=== PATIENT | female | born 1985 | race Caucasian/White ===

== ENCOUNTER 2023-01-20 09:03 | Outpatient (OUT) | payer BC, SELFPAY ==
[2023-01-20 09:36] LABS: Estimated Average Glucose 85 mg/dL; Glycohemoglobin A1C 4.6 % (4.5-6.2)
[2023-01-20 09:43] LABS: Basophils Percent Auto 0.4 % (0.2-2.0); Eosinophils Absolute Auto 0.2 10^3/uL (0.0-0.7); Eosinophils Percent Auto 2.2 % (0.9-7.0); Hematocrit 42.1 % (36.0-48.0); Hemoglobin 14.2 g/dL (12.0-16.0); Immature Granulocytes Abs Auto 0.01 10^3/uL (0.00-0.03); Immature Granulocytes Pct Auto 0.1 % (0.0-0.5); Lymphocytes Absolute Auto 1.8 10^3/uL (1.2-3.8); Lymphocytes Percent Auto 25.7 % (20.5-60.0); Mean Corpuscular HGB Conc 33.7 g/dL (29.9-35.2); Mean Corpuscular Volume 91.9 fL (81.0-99.0); Mean Platelet Volume 9.7 fL (9.5-13.5); Monocytes Absolute Auto 0.4 10^3/uL (0.3-0.8); Monocytes Percent Auto 5.9 % (1.7-12.0); Neutrophils Absolute Auto 4.6 10^3/uL (1.4-6.5); Neutrophils Percent Auto 65.7 % (43.0-75.0); Platelet Count 211 10^3/uL (150-450); Red Blood Count 4.58 10^6/uL (4.20-5.40); Red Cell Distribution Width 12.4 % (11.0-15.0)
[2023-01-20 10:23] LABS: Alanine Aminotransferase 24 U/L (14-59); Albumin Level 3.9 g/dL (3.4-5.0); Alkaline Phosphatase 77 U/L (46-116); Aspartate Amino Transferase 13 U/L (15-37); BUN Creatinine Ratio 18.8; Bilirubin Total 0.6 mg/dL (0.2-1.0); Calcium 8.8 mg/dL (8.5-10.1); Chloride 101 mmol/L (98-107); Cholesterol 262 mg/dL (<=200); Estimated GFR (African America >60 (>=60); Estimated GFR (Non-African Ame >60 (>=60); Free T3 2.71 pg/mL (2.18-3.98); Globulin 3.9 g/dL; Glucose 81 mg/dL (74-106); HDL Cholesterol 65 mg/dL (40-60); Sodium 138 mmol/L (136-145); Thyroid Stimulating Hormone 2.122 uIU/mL (0.358-3.740); Total Protein 7.8 g/dL (6.4-8.2); Triglycerides 112 mg/dL (<=150); VLDL CHOLESTEROL 22.4 mg/dL
== END 2023-01-20 09:04 | disposition home or self-care (01) ==
LOC: LAB 09:08
PROVIDERS: PCP Family Medicine; Visit Provider Family Medicine
DX: Z00.00 Encounter for general adult medical examination without abnormal findings (principal)
CPT/HCPCS: 36415; 80053; 80061; 82306; 83036; 83540; 84436; 84443; 84481; 85025

== ENCOUNTER 2023-11-07 09:13 | Outpatient (OUT) | payer BC, SELFPAY ==
--- OUTSIDE RECORDS SUMMARY | 2023-11-07 09:30 | XMS_ITS | CCD ---
Author Organization [facility] Care Team Providers Care Manager Transfer Name Role Phone Jeyson Duval Unavailable CHEMA VINCENT S Unavailable Unavailable JEYSON DUVAL Unavailable Unavailable ADILSON WOOD Unavailable Unavailable JEYSON DUVAL Unavailable Unavailable SHAHEEN BEAR SJak Unavailable Unavailable Jeyson Duval Primary Care Provider DR JEYSON DUVAL Attending Unavailable DR JEYSON DUVAL Primary Care Unavailable DR JEYSON DUVAL Admitting Unavailable Jeyson Duval MD Primary Care Provider [phone] Trista ALEJANDRO, Doreen Medrano Attending Cathleen Jeyson Quach MD Primary Care Unavaila nimisha Luke APRN-JAKOB, Areli Mosley Attending Un available Jeyson Duval MD Primary Care Unavaila Hector Michel MD Attending Unavail Jeyson Montague MD Primary Care Unavaila nimisha ENCINAS, Areli Mosley Attending Un available Jeyson Duval MD Primary Care Unavaila Hector Michel MD Attending Unavail able Jeyson Duval MD Primary Care Unavaila Hector Michel MD Attending Unavail Jeyson Montague MD Primary Care Unavaila nimisha Oseguera MD, Becca Maldonado Attending Unavailable Jeyson Duval MD Primary Care Unavaila nimisha Oseguera MD, Becca Maldonado Attending Unavailable Jeyson Duval MD Primary Care Unavaila nimisha Oseguera MD, Becca Maldonado Attending Unavailable Jeyson Duval MD Primary Care Unavaila nimisha Guevara MD, Hector Rojas Attending Unavail Jeyson Montague MD Primary [facility] Unavaila nimisha Oseguera MD, Becca Maldonado Attending Unavailable [facility]in [facility]isha Oseguera MD, Becca Maldonado Attending Unavailable [facility] nimisha Guevara MD, Hector Rojas Attending Unavail able Simin JULES, Jeyson [facility] Unavaila nimisha Oseguera MD, Becca Maldonado Attending Unavailable [facility]in [facility] Unavaila nimisha Guevara MD, Hector Rojas Attending Unavail able [facility]in [facility]UL[facility], [facility] Unavaila ble Blade REGISTERED PHYSICAL THERAPIST-CNM, Sondra Forrest Attending Un available Simin JULES, Jeyson [facility] Unavaila nimisha Weston APRN-OFFICE SYSTEMS TECHNOLOGY INSTRUCTOR, Doreen Medrano Attending Cathleen vailanimisha Duval MD, [facility] Unavaila nimisha Oseguera MD, Becca Maldonado Attending Unavailable Simin JULES, [facility] Unavaila ble Blade REGISTERED PHYSICAL THERAPIST-CNM, Sondra Forrest Attending Un available Simin JUL[facility], [facility] Unavaila nimisha Oseguera MD, Becca Maldonado Attending Unavailable Simin JULES, [facility] Unavaila nimisha Oseguera MD, Becca Maldonado Attending Unavailable Simin JULES, [facility] Unavaila nimisha Oseguera MD, Becca Maldonado Attending Unavailable Jeyson Duval MD [facility] Unavaila nimisha Oseguera MD, Becca Maldonado Attending Unavailable Simin JULES, [facility] Unavaila nimisha Guevara MD, Hector Rojas Attending Unavail able Simin JULES, [facility] Unavaila nimisha Guevara MD, Hector Rojas Attending Unavail able Simin JULES, [facility] Unavaila nimisha Oseguera MD, Becca Maldonado Attending Unavailable Jeyson Duval MD [facility] Unavaila ble Marly GUSMAN-CNCamila, Areli Mosley Attending Un available Jeyson Duval MD [facility] Unavaila nimisha Guevara MD, Hector Rojas Attending Unavail able Simin JULES, [facility] Unavaila nimisha Oseguera MD, Becca Maldonado Attending Unavailable Hoy MD, [facility] Unavaila nimisha Oseguera MD, Becca Maldonado Attending Unavailable Simin JULES, [facility] Unavaila nimisha Duval MD, [facility] Unavaila nimisha Guevara MD, Hector Rojas Attending Unavail able Simin JULES, [facility] Unavaila nimisha Duval MD, [facility] Unavaila nimisha Duval MD, [facility] Unavaila nimisha Oseguera MD, Becca Maldonado Attending Unavailable Simin JULES, [facility] Unavaila nimisha Guevara MD, Hector Rojas Attending Unavail able Simin JULES, [facility] Unavaila nimisha Guevara MD, Hector Rojas Attending Unavail able Simin JULES, [facility] Unavaila nimisha Oseguera MD, Becca Maldonado Attending Unavailable Simin JULES, [facility] Unavaila nimisha ENCINAS, Areli Mosley Attending Un available Simin JULES, [facility] Unavaila nimisha Guevara MD, Hector Rojas Attending Unavail able Simin JULSE, [facility] Unavaila nimisha Oseguera MD, Becca Maldonado Attending Unavailable Simin JULES, [facility] Unavaila nimisha Guevara MD, Hector Rojas Attending Unavail able Simin JULES, [facility] Unavaila nimisha Oseguera MD, Becca Maldonado Attending Unavailable Simin JULES, [facility] Unavaila nimisha Oseguera MD, Becca Maldonado Attending Unavailable Simin JULES, [facility] Unavaila nimisha Oseguera MD, Becca Maldonado Attending Unavailable Simin JULES, [facility] Unavaila nimisha Oseguera MD, Becca Maldonado Attending Unavailable Simin JULES, [facility] Unavaila ble Soto HARRELL, [employer] Unavailable Paola JULES, Hector Rojas Admitting Unavail able Paola JULES, Hector Rojas Attending Unavail able Simin JULES, [facility] Unavaila nimisha Duval MD, [facility] Consult[facility] Unavaila nimisha Guevara MD, Hector Rojas Admitting Unavail renato Guevara MD, Hector Rojas Attending Unavail able Simin JULES, [facility] Unavaila nimisha Guevara MD, Hector Rojas Attending Jeyson Sanchez MD Primary Care Unavailjuan Guevara MD, Hector Rojas Attending Jeyson Sanchez MD Primary Care Unavailjuan Guevara MD, Hector Rojas Attending Jeyson Sanchez MD Primary Care UnavailJeyson Rider MD Primary Care Provider [phone] HOY, JEYSON M Referring Unavailable HOY, JEYSON M Primary Care Unavailable HOY, JEYSON M Referring Unavailable HOY, JEYSON M Primary Care Unavailable HOY, JEYSON M Referring Unavailable HOY, JEYSON M Primary Care Unavailable HOY, JEYSON M Referring Unavailable HOY, JEYSON M Primary Care Unavailable Allergies Allergy Classification Reported Allergen(s) Allergy Type Date of Onset Reaction(s) Facility Cephalosporins (antibiotic) (3 sources) Cephalosporins (Antibiotic) Drug Allergy 04-10-19 [facility] Penicillins (antibiotic) (3 sources) Penicillins Drug Allergy 07-07-19 [facility] (4 sources) Cephalosporins (Antibiotic); Translations: [CEPHALOSPORINS] Propensity to adverse reactions to drug 04-10-19 [facility] Work Phone: (3 sources) Penicillins; Translations: [PENICILLINS] Propensity to adverse reactions to drug 03-21-19 [facility] Work Phone: (6 sources) OTHER; Translations: [OTHER] Propensity to adverse reactions 08-05-19 Hives, Itching [facility] Work Phone: (4 sources) Cephalosporins (Antibiotic) Propensity to adverse reactions to drug 04-10-19 [place], [place] (4 sources) Penicillins Propensity to adverse reactions to drug 07-07-19 [place], [place] (1 source) surgical glue; Translations: [surgical glue] Propensity to adverse reactions to drug (disorder) [facility] Repository (1 source) Penicillins Propensity to adverse reactions to drug 07-07-19 [facility] NEGATED: Highlighted row has been ruled out!Unclassified (4 sources) Other Propensity to adverse reactions 08-05-19 17 Hives, Itching [facility] Medications Current Medications Medication Drug Class(es) Dates Sig (Normalized) Sig (Original) clindamycin 150 mg oral capsule (8 sources) Lincosamide Antibacterial clindamycin (CLEOCIN) 150 MG capsule Take 300 mg by mouth daily as needed Take 300mg one hour before procedure and 300mg six hours after procedure. 0 Active esomeprazole 40 mg granules for oral suspension (8 sources) Proton Pump Inhibitor take 40 mg by mouth once daily esomeprazole Magnesium (NEXIUM) 40 MG PACK Take 40 mg by mouth daily 0 Active Ethinyl Estradiol / Ferrous fumarate / Norethindrone (8 sources) Estrogen take 1 tablet by mouth once daily, then take 0.05-1 tablets by mouth once norethindrone-eth inyl estradiol (JUNEL FE 04/02) 1-20 MG-MCG per tablet Take 1 tablet by mouth daily 0 Active Norethindrone Acetate 1 Mg-Ethinyl Estradiol 20 McG Tablet (1 source) Progestin, Estrogen take 1 tablet by mouth once daily, then take 0.05-21 tablets by mouth once norethindrone-eth inyl estradiol (MICROGESTIN 04/02, ,) 1-20 mg-mcg per tablet Take 1 tablet by mouth daily. Active fluticasone propionate 0.05 mg/actuat metered dose nasal spray (1 source) Corticosteroid take 1 spray(s) nasal route once daily fluticasone (FLONASE) 50 mcg/actuation nasal spray Instill 1 spray into each nostril daily. Active Multiple Vitamins-Minerals (HAIR SKIN AND NAILS FORMULA PO) (8 sources) Multiple Vitamins-Minerals (HAIR SKIN AND NAILS FORMULA PO) Take by mouth 0 Active Multiple Vitamins-Minerals (MULTIVITAMIN & MINERAL PO) (8 sources) Start: 11-04-2006 Multiple Vitamins-Minerals (MULTIVITAMIN & MINERAL PO) Take by mouth 0 11/04/2006 Active naproxen sodium 220 mg oral capsule (9 sources) Nonsteroidal Anti-inflammatory Drug Naproxen Sodium (ALEVE) 220 MG CAPS Take by mouth as needed for Pain 0 Active take [facility] capsule [facility] twelve hours naproxen sodium (ALEVE) 220 mg cap Take 1 tablet by mouth every 12 (twelve) hours as needed. Active omeprazole 40 mg delayed release oral capsule (1 source) Proton Pump Inhibitor take 1 capsule by mouth once daily omeprazole (PRILOSEC) 40 MG capsule Take 40 mg by mouth daily. Active ondansetron 4 mg oral tablet (9 sources) Serotonin-3 Receptor Antagonist take 1 tablet by mouth every eight hours as needed for nausea ondansetron (ZOFRAN) 4 MG tablet Take 4 mg by mouth every 8 hours as needed for Nausea or Vomiting 0 Active Probiotic Product (PROBIOTIC PO) (8 sources) take 1 tablet by mouth once daily as needed Probiotic Product (PROBIOTIC PO) Take 1 tablet by mouth daily as needed 0 Active raNITIdine 150 mg oral tablet (8 sources) Histamine-2 Receptor Antagonist take 1 tablet by mouth once daily ranitidine (ZANTAC) 150 MG tablet Take 150 mg by mouth nightly 0 Active therapeutic multivitamin (THERAGRAN) tablet (1 source) take 1 tablet by mouth once daily therapeutic multivitamin (THERAGRAN) tablet Take 1 tablet by mouth daily. Active Problems Active Problems Problem Classification Problem Date Documented Da te Episodic/Chronic Headache; including migraine (1 source) Refractory migraine; Translations: [Intractable migraine without status migrainosus, unspecified migraine type] Chronic Mycoses (1 source) Histoplasmosis; Translations: [Histoplasmosis] Episodic Other connective tissue disease (1 source) Pain in left foot; Translations: [Pain in left foot] Episodic Other screening for suspected conditions (not mental disorders or infectious disease) (4 sources) Patient encounter status; Translations: [Encounter for screening mammogram for malignant neoplasm of breast] Onset: 03-01-2023 Episodic Other upper respiratory disease (3 sources) Chronic rhinitis; Translations: [Chronic rhinitis] Onset: 03-21-2017 03-21-2017 Chronic Past or Other Problems Problem Classification Problem Date Documented Da te Episodic/Chronic Other gastrointestinal disorders (1 source) Dysphagia, oropharyngeal phase; Translations: [Dysphagia, oropharyngeal phase] Onset: 05-25-2017 Episodic Other upper respiratory infections (2 sources) Postnasal drip; Translations: [Postnasal drip] Onset: 03-21-2017 Episodic Unclassified (3 sources) Other general symptoms and signs; Translations: [Throat fullness] Onset: 03-21-2017 03-21-2017 Episodic Results Test Name Value Interpretation Reference Range Facility MRI BREAST BILATERAL W WO CO NTRASTon 07-05-2023 MRI BREAST BILATERAL W WO CONTRAST EXAMINATION: MRI OF THE BILATERAL BREASTS WITHOUT AND WITH CONTRAST 07/05/2023 9:40 am: TECHNIQUE: Multiplanar multisequence MRI of the bilateral breasts were performed without and with the administration of intravenous contrast. Data analysis was performed with color parametric mapping, image subtraction, and 3D reconstructions. COMPARISON: No prior MRI study for comparison. Prior mammograms and ultrasounds most recent dated 05/06/2023. HISTORY: ORDERING SYSTEM PROVIDED HISTORY: Abnormal mammogram TECHNOLOGIST PROVIDED HISTORY: STAT Creatinine as needed:->No FINDINGS: Breast parenchyma: Heterogeneously dense. Minimal background parenchymal enhancement symmetrical. Right breast: No suspicious MRI correlate for the mammogram detected asymmetry in the right breast 10-11 o'clock axis consistent with benign superimpose fibroglandular breast tissue. No evidence of abnormal enhancing mass or non mass enhancement. The nipple/areolar complex and chest wall unremarkable. No evidence of lymphadenopathy. Left breast: No evidence of abnormal enhancing mass or non mass enhancement. The nipple/areolar complex and chest wall unremarkable. No evidence of lymphadenopathy. Extramammary tissue: Unremarkable. IMPRESSION: No MRI evidence of malignancy. BI-RADS 2 BIRADS: BIRADS - CATEGORY 2 Benign Findings. Back to annual screening mammogram due February 2024. OVERALL ASSESSMENT - BENIGN Interpreted by: Tara Brooks MD Signed by: Tara Brooks MD 07/05/23 Final result Normal [facility] DIGITAL DIAGNOSTIC UNILATERAL RIGHTon 05-06-2023 [facility] DIGITAL DIAGNOSTIC UNILATERAL RIGHT EXAMINATION: DIAGNOSTIC DIGITAL RIGHT BREAST MAMMOGRAM WITH TOMOSYNTHESIS; TARGETED ULTRASOUND OF THE RIGHT BREAST, 05/06/2023 1:42 pm TECHNIQUE: Diagnostic mammography of the right breast was performed with tomosynthesis. 2D standard and 3D tomosynthesis combination imaging performed through the right breast. Computer aided detection was utilized in the interpretation of this exam.; Targeted ultrasound of the right breast was performed. Views: COMPARISON: March 01, 2023 HISTORY: ORDERING SYSTEM PROVIDED HISTORY: Other abnormal and inconclusive findings on diagnostic imaging of breast TECHNOLOGIST PROVIDED HISTORY: CAD FINDINGS: Mammogram: The right breast is heterogeneously dense which can obscure small masses. Area of concern in the outer right breast persist with spot compression although does appear to be most likely summation on tomosynthesis images. Ultrasound: Ultrasound was performed 10-11 o'clock position 5 cm the nipple and demonstrates no solid or cystic mass. IMPRESSION: Asymmetry persists with spot compression likely summation with no ultrasound correlate. Recommend six-month mammogram follow-up. BIRADS: BIRADS - CATEGORY 3 Probably Benign Findings. A short interval follow-up is recommended in 6 months. OVERALL ASSESSMENT - PROBABLY BENIGN. A letter of notification will be sent to the patient regarding the results. Interpreted by: Johnie Lozano DO Signed by: Johnie Lozano DO 05/06/23 Final result Normal [facility] US BREAST LIMITED RIGHTon US BREAST LIMITED RIGHT EXAMINATION: DIAGNOSTIC DIGITAL RIGHT BREAST MAMMOGRAM WITH TOMOSYNTHESIS; TARGETED ULTRASOUND OF THE RIGHT BREAST, 05/06/2023 1:42 pm TECHNIQUE: Diagnostic mammography of the right breast was performed with tomosynthesis. 2D standard and 3D tomosynthesis combination imaging performed through the right breast. Computer aided detection was utilized in the interpretation of this exam.; Targeted ultrasound of the right breast was performed. Views: COMPARISON: March 01, 2023 HISTORY: ORDERING SYSTEM PROVIDED HISTORY: Other abnormal and inconclusive findings on diagnostic imaging of breast TECHNOLOGIST PROVIDED HISTORY: CAD FINDINGS: Mammogram: The right breast is heterogeneously dense which can obscure small masses. Area of concern in the outer right breast persist with spot compression although does appear to be most likely summation on tomosynthesis images. Ultrasound: Ultrasound was performed 10-11 o'clock position 5 cm the nipple and demonstrates no solid or cystic mass. IMPRESSION: Asymmetry persists with spot compression likely summation with no ultrasound correlate. Recommend six-month mammogram follow-up. BIRADS: BIRADS - CATEGORY 3 Probably Benign Findings. A short interval follow-up is recommended in 6 months. OVERALL ASSESSMENT - PROBABLY BENIGN. A letter of notification will be sent to the patient regarding the results. Interpreted by: Johnie Lozano DO Signed by: Johnie Lozano DO 05/06/23 Final result Normal [facility] US Breast - right limitedOrd ered By: Johnie Lozano on 05-06-2023 Interpretation and review of laboratory results Abnormal [employer] Phone: [employer] Phone: US Breast - right limitedon 05-06-2023 Asymmetry persists with spot compression likely summation with no ultrasound correlate. Recommend six-month mammogram follow-up. BIRADS: BIRADS - CATEGORY 3 Probably Benign Findings. A short interval follow-up is recommended in 6 months. OVERALL ASSESSMENT - PROBABLY BENIGN. A letter of notification will be sent to the patient regarding the results. [facility] EXAMINATION: DIAGNOSTIC DIGITAL RIGHT BREAST MAMMOGRAM WITH TOMOSYNTHESIS; TARGETED ULTRASOUND OF THE RIGHT BREAST, 05/06/2023 1:42 pm TECHNIQUE: Diagnostic mammography of the right breast was performed with tomosynthesis. 2D standard and 3D tomosynthesis combination imaging performed through the right breast. Computer aided detection was utilized in the interpretation of this exam.; Targeted ultrasound of the right breast was performed. Views: COMPARISON: March 01, 2023 HISTORY: ORDERING SYSTEM PROVIDED HISTORY: Other abnormal and inconclusive findings on diagnostic imaging of breast TECHNOLOGIST PROVIDED HISTORY: CAD FINDINGS: Mammogram: The right breast is heterogeneously dense which can obscure small masses. Area of concern in the outer right breast persist with spot compression although does appear to be most likely summation on tomosynthesis images. Ultrasound: Ultrasound was performed 10-11 o'clock position 5 cm the nipple and demonstrates no solid or cystic mass. [facility] Radiology Study observation (narrative) [facility]NSON DIGITAL SCREEN LONNIE Valdez 03-01-2023 [facility] J[facility]NSON DIGITAL SCREEN BILATERAL EXAMINATION: SCREENING DIGITAL BILATERAL MAMMOGRAM WITH TOMOSYNTHESIS, 03/01/2023 TECHNIQUE: Screening mammography was performed with tomosynthesis including MLO and CC views of the bilateral breasts. Computer aided detection was used for the interpretation of this exam. COMPARISON: 27 October 2020 HISTORY: Screening. Positive family history of breast cancer; maternal grandmother in her 40s. 12 year history of oral contraception. No hormonal replacement therapy or breast interventions. TC score 18.1 FINDINGS: Both breasts are composed of heterogeneously dense parenchyma. An asymmetry is present in the lateral aspect of the right breast middle depth on CC view with additional mammographic workup advised. Full workup may require ultrasonography. No skin thickening, nipple contour changes or suspicious calcifications are noted. IMPRESSION: Asymmetry lateral aspect of the right breast middle depth seen on CC view only with additional mammographic workup advised. Full workup may require ultrasonography. BREAST DENSITY SUMMARY C: The breasts are heterogeneously dense which may obscure small masses. BI-RADS 0 BIRADS: BIRADS - CATEGORY 0 Incomplete: Needs Additional Imaging Evaluation OVERALL ASSESSMENT - INCOMPLETE:NEED ADDITIONAL IMAGING EVALUATION. Interpreted by: Danielle Collins MD Signed by: Danielle Collins MD 03/01/23 Final result Normal [facility] Gynecology Office/Clinic Not jordyn 02-21-2023 Gynecology Office/Clinic Note Normal [facility] Free T4on 09-09-2022 Free T4 [Mass/Vol] 0.76 ng/dL Normal 0.61-1.12 [facility] Comment on above: Result Comment: Refe rence Ranges for Females: Females, 1st Trimester 0.52 ? 1.10 ng/dL Females, 2nd Trimester 0.45 ? 0.99 ng/dL Females, 3rd Trimester 0.48 - 0.95 ng/dL Performed By: #### F REET4 ####[place] [id number] TSHon 09-09-2022 TSH Qn 0.96 m[IU]/L Normal 0.45-5.33 [facility] Comment on above: Result Comment: Refe rence Ranges for individuals from to 18 years of age were obtained from The Mary Ann Emerson Handbook (20 ed) published by [facility].Reference Ranges for Females: Females, 1st Trimester 0.05 ? 3.7 uIU/mL Females, 2nd Trimester 0.31 ? 4.35 uIU/mL Females, 3rd Trimester 0.41 ? 5.18 uIU/mL Performed By: #### T SH ####[address] [address] C Urineon 07-31-2022 C Urine Normal [facility] Comment on above: Performed By: #### U RC ####[facility] (DEFAULT)[address] [place], [place] [id number] [address] .UA Microscp Aon 07-29-2022 UA Bacteria Present Abnormal Absent [facility] Comment on above: Performed By: #### . Urinalysis Microscopic Auto ####[address] [address] UA Mucus Present Abnormal Absent [facility] Comment on above: Performed By: #### . Urinalysis Microscopic Auto ####[address] [address] UA RBC Quant 0 /HPF Normal 0-5 [facility] Comment on above: Performed By: #### . Urinalysis Microscopic Auto ####[address] [address] UA Squepi Cells Quant 3 /HPF Normal 0-29 [facility] Comment on above: Performed By: #### . Urinalysis Microscopic Auto ####[address] [address] UA WBC Quant 6 /HPF High 0-5 [facility] Comment on above: Performed By: #### . Urinalysis Microscopic Auto ####[place] [address] Gynecology Office/Clinic Not jordyn 07-29-2022 Gynecology Office/Clinic Note Normal [facility] UA w Culture if Indon 2022 Color (U) Light-Yellow Normal [facility] Comment on above: Performed By: #### U CI ####[address] [address] Ketones Ql (U) Negative Normal Negative [facility] Comment on above: Performed By: #### U CI ####[address] [address] UA Blood 1+ Abnormal Negative [facility] Comment on above: Performed By: #### U CI ####[address] [address] UA Clarity Clear Normal [facility] Comment on above: Performed By: #### U CI ####[address] [address] UA Glucose Normal Normal Negative [facility] Comment on above: Performed By: #### U CI ####[address] [address] UA Leukocyte Esterase 75 Abnormal Negative [facility] Comment on above: Performed By: #### U CI ####[address] [address] UA Nitrite Negative Normal Negative [facility] Comment on above: Performed By: #### U CI ####[address] [address] UA pH 6.5 Normal 4.5 - 7.8 [facility] Comment on above: Performed By: #### U CI ####[address] [address] UA Protein Negative Normal Negative [facility] Comment on above: Performed By: #### U CI ####[address] [address] UA Source Clean Catch Normal [facility] Comment on above: Performed By: #### U CI ####[address] [address] UA Spec Grav 1.011 Normal 1.003-1.035 [facility] Comment on above: Performed By: #### U CI ####[address] [address] UA Urobilinogen Normal Normal 0.2 - 1.0 [facility] Comment on above: Performed By: #### U CI ####[address] [address] Urobilinogen (U) [Mass/Vol] Negative Normal Negative [facility] Comment on above: Performed By: #### U CI ####[address] [address] Inpatient Clinical Summaryon 07-21-2022 Inpatient Clinical Summary Normal [facility] CBC w/ Diffon 07-20-2022 Erythrocyte distribution width (RBC) [Ratio] 13.8 % Normal 11.6-14.8 [facility] Comment on above: Performed By: #### C BC ####[address] [address] Hematocrit (Bld) [Volume fraction] 26.3 % Low 36.0-46.0 [facility] Comment on above: Performed By: #### C BC ####[address] [address] Hemoglobin (Bld) [Mass/Vol] 9.0 g/dL Low 12.0-16.0 [facility] Comment on above: Performed By: #### C BC ####[address] [address] MCH (RBC) [Entitic mass] 31.3 pg Normal 27.0-35.0 [facility] Comment on above: Performed By: #### C BC ####[address] [address] MCHC 34.2 % Normal 31.0-37.0 [facility] Comment on above: Performed By: #### C BC ####[address] [address] MCV (RBC) [Entitic vol] 91.6 fL Normal 80.0-100.0 [facility] Comment on above: Performed By: #### C BC ####[address] [address] Platelet 165 x10*3/mcL Normal 150-350 [facility] Comment on above: Performed By: #### C BC ####[address] [address] Platelet mean volume (Bld) [Entitic vol] 7.6 fL Normal 6.7-10.6 [facility] Comment on above: Performed By: #### C BC ####[address] [address] RBC 2.88 x10*6/mcL Low 3.80-5.20 [facility] Comment on above: Performed By: #### C BC ####[address] [address] WBC 10.1 x10*3/mcL Normal 4.5-11.0 [facility] Comment on above: Performed By: #### C BC ####[address] [address] Diff Autoon 07-20-2022 Baso Absolute 0.1 x10*3/mcL Normal 0.0-0.2 [facility] Comment on above: Performed By: #### . Automated Diff ####[address] [address] Basophils/100 WBC (Bld) 0.6 % Normal 0.0-1.5 [facility] Comment on above: Performed By: #### . Automated Diff ####[address] [address] Eos Absolute 0.1 x10*3/mcL Normal 0.0-0.4 [facility] Comment on above: Performed By: #### . Automated Diff ####[address] [address] Eosinophils/100 WBC (Bld) 1.4 % Normal 0.0-5.4 [facility] Comment on above: Performed By: #### . Automated Diff ####[address] [address] Lymph Absolute 1.5 x10*3/mcL Normal 1.0-4.8 [facility] Comment on above: Performed By: #### . Automated Diff ####[address] [address] Lymphocytes/100 WBC (Bld) 14.6 % Low 27.2-40.8 [facility] Comment on above: Performed By: #### . Automated Diff ####[address] [address] Ramsey Absolute 0.7 x10*3/mcL Normal 0.1-1.1 [facility] Comment on above: Performed By: #### . Automated Diff ####[address] [address] Monocytes/100 WBC (Bld) 7.2 % Normal 3.7-11.9 [facility] Comment on above: Performed By: #### . Automated Diff ####[address] [place] [address] Neutro Absolute 7.7 x10*3/mcL Normal 1.8-7.7 [facility] Comment on above: Performed By: #### . Automated Diff ####[place] [address] Neutro Auto 76.2 % High 47.2-70.8 [facility] Comment on above: Performed By: #### . Automated Diff ####[place] [id number] Obstetrics Progress Noteon 0 07-20-2022 Obstetrics Progress Note Normal [facility] CBC w/ Diffon 07-19-2022 Erythrocyte distribution width (RBC) [Ratio] 13.9 % Normal 11.6-14.8 [facility] Comment on above: Performed By: #### C BC ####[place] [address] Hematocrit (Bld) [Volume fraction] 27.9 % Low 36.0-46.0 [facility] Comment on above: Performed By: #### C BC ####[place] [address] Hemoglobin (Bld) [Mass/Vol] 9.5 g/dL Low 12.0-16.0 [facility] Comment on above: Performed By: #### C BC ####[place] [id number] MCH (RBC) [Entitic mass] 31.0 pg Normal 27.0-35.0 [facility] Comment on above: Performed By: #### C BC ####[place] [id number] MCHC 34.2 % Normal 31.0-37.0 [facility] Comment on above: Performed By: #### C BC ####[place] [id number] MCV (RBC) [Entitic vol] 90.8 fL Normal 80.0-100.0 [facility] Comment on above: Performed By: #### C BC ####[address] [address] Platelet 176 x10*3/mcL Normal 150-350 [facility] Comment on above: Performed By: #### C BC ####[address] [address] Platelet mean volume (Bld) [Entitic vol] 7.5 fL Normal 6.7-10.6 [facility] Comment on above: Performed By: #### C BC ####[address] [address] RBC 3.08 x10*6/mcL Low 3.80-5.20 [facility] Comment on above: Performed By: #### C BC ####[address] [address] WBC 11.7 x10*3/mcL High 4.5-11.0 [facility] Comment on above: Performed By: #### C BC ####[address] [address] Diff Autoon 07-19-2022 Baso Absolute 0.1 x10*3/mcL Normal 0.0-0.2 [facility] Comment on above: Performed By: #### . Automated Diff ####[address] [address] Basophils/100 WBC (Bld) 0.7 % Normal 0.0-1.5 [facility] Comment on above: Performed By: #### . Automated Diff ####[address] [address] Eos Absolute 0.1 x10*3/mcL Normal 0.0-0.4 [facility] Comment on above: Performed By: #### . Automated Diff ####[address] [address] Eosinophils/100 WBC (Bld) 0.7 % Normal 0.0-5.4 [facility] Comment on above: Performed By: #### . Automated Diff ####[address] [address] Lymph Absolute 1.2 x10*3/mcL Normal 1.0-4.8 [facility] Comment on above: Performed By: #### . Automated Diff ####[address] [address] Lymphocytes/100 WBC (Bld) 10.2 % Low 27.2-40.8 [facility] Comment on above: Performed By: #### . Automated Diff ####[address] [address] Ramsey Absolute 0.7 x10*3/mcL Normal 0.1-1.1 [facility] Comment on above: Performed By: #### . Automated Diff ####[address] [address] Monocytes/100 WBC (Bld) 6.1 % Normal 3.7-11.9 [facility] Comment on above: Performed By: #### . Automated Diff ####[address] [address] Neutro Absolute 9.6 x10*3/mcL High 1.8-7.7 [facility] Comment on above: Performed By: #### . Automated Diff ####[address] [address] Neutro Auto 82.3 % High 47.2-70.8 [facility] Comment on above: Performed By: #### . Automated Diff ####[address] [address] Obstetrics Progress Noteon 0 07-19-2022 Obstetrics Progress Note Normal [facility] .Fentanyl Scrn with Conf,Uro n 07-18-2022 Ur Fentanyl Scrn w/Confirm Negative Normal NEG <1.0 [facility] Comment on above: Performed By: #### C [id number] ####[address] [address] Ur Fentanyl Scrn w/Confirm Qnt 0.00 ng/mL Normal <=0.99 [facility] Comment on above: Performed By: #### C [id number] ####[address] [address] ABO/Rhon 07-18-2022 ABO/Rh ABO/Rh: A POS Normal [facility] Comment on above: Performed By: #### A KILEY ####[address] [address] ABSC Autoon 07-18-2022 ABSC Auto Negative Normal [facility] Comment on above: Performed By: #### A SA ####[address] [address] CBC w/ Diffon 07-18-2022 Erythrocyte distribution width (RBC) [Ratio] 13.8 % Normal 11.6-14.8 [facility] Comment on above: Performed By: #### C BC ####[address] [address] Hematocrit (Bld) [Volume fraction] 36.8 % Normal 36.0-46.0 [facility] Comment on above: Performed By: #### C BC ####[address] [address] Hemoglobin (Bld) [Mass/Vol] 12.5 g/dL Normal 12.0-16.0 [facility] Comment on above: Performed By: #### C BC ####[address] [address] MCH (RBC) [Entitic mass] 30.8 pg Normal 27.0-35.0 [facility] Comment on above: Performed By: #### C BC ####[address] [address] MCHC 33.9 % Normal 31.0-37.0 [facility] Comment on above: Performed By: #### C BC ####[address] [address] MCV (RBC) [Entitic vol] 91.1 fL Normal 80.0-100.0 [facility] Comment on above: Performed By: #### C BC ####[address] [address] Platelet 209 x10*3/mcL Normal 150-350 [facility] Comment on above: Performed By: #### C BC ####[address] [address] Platelet mean volume (Bld) [Entitic vol] 8.2 fL Normal 6.7-10.6 [facility] Comment on above: Performed By: #### C BC ####[address] [address] RBC 4.04 x10*6/mcL Normal 3.80-5.20 [facility] Comment on above: Performed By: #### C BC ####[address] [address] WBC 8.8 x10*3/mcL Normal 4.5-11.0 [facility] Comment on above: Performed By: #### C BC ####[address] [address] Diff Autoon 07-18-2022 Baso Absolute 0.0 x10*3/mcL Normal 0.0-0.2 [facility] Comment on above: Performed By: #### . Automated Diff ####[address] [address] Basophils/100 WBC (Bld) 0.4 % Normal 0.0-1.5 [facility] Comment on above: Performed By: #### . Automated Diff ####[address] [address] Eos Absolute 0.0 x10*3/mcL Normal 0.0-0.4 [facility] Comment on above: Performed By: #### . Automated Diff ####[address] [address] Eosinophils/100 WBC (Bld) 0.5 % Normal 0.0-5.4 [facility] Comment on above: Performed By: #### . Automated Diff ####[address] [address] Lymph Absolute 1.4 x10*3/mcL Normal 1.0-4.8 [facility] Comment on above: Performed By: #### . Automated Diff ####[address] [address] Lymphocytes/100 WBC (Bld) 16.2 % Low 27.2-40.8 [facility] Comment on above: Performed By: #### . Automated Diff ####[address] [address] Ramsey Absolute 0.6 x10*3/mcL Normal 0.1-1.1 [facility] Comment on above: Performed By: #### . Automated Diff ####[address] [address] Monocytes/100 WBC (Bld) 6.3 % Normal 3.7-11.9 [facility] Comment on above: Performed By: #### . Automated Diff ####[address] [address] Neutro Absolute 6.7 x10*3/mcL Normal 1.8-7.7 [facility] Comment on above: Performed By: #### . Automated Diff ####[address] [address] Neutro Auto 76.6 % High 47.2-70.8 [facility] Comment on above: Performed By: #### . Automated Diff ####[address] [address] Operative Reporton Operative Report Normal [facility] UDS OB/Con 07-18-2022 Creatinine [Mass/Vol] 66.9 mg/dL Normal [facility] Comment on above: Performed By: #### C [id number] ####[address] [address] Ur Amph Scrn w/Conf Negative Normal NEG = <1000 [facility] Comment on above: Performed By: #### C [id number] ####[address] [address] Ur Suha Scrn w/Conf Negative Normal NEG = <200 [facility] Comment on above: Performed By: #### C [id number] ####[address] [address] Ur Benzodia Scrn w/Conf Negative Normal NEG = <200 [facility] Comment on above: Performed By: #### C [id number] ####[address] [address] Ur Cannab Scrn w/Conf Negative Normal NEG = <50 [facility] Comment on above: Performed By: #### C [id number] ####[address] [address] Ur Cocaine Scrn w/Conf Negative Normal NEG = <300 [facility] Comment on above: Performed By: #### C [id number] ####[address] [address] Ur Methadone Scrn w/Conf Negative Normal NEG = <300 [facility] Comment on above: Performed By: #### C [id number] ####[address] [address] Ur Opiate Scrn w/Conf Negative Normal NEG = <300 [facility] Comment on above: Performed By: #### C [id number] ####[address] [address] Ur Oxy Screen w/Conf Negative Normal NEG = <100 [facility] Comment on above: Performed By: #### C [id number] ####[address] [address] Ur Oxy Scrn Qnt w/Confirm 0 ng/mL Normal <=99 [facility] Comment on above: Performed By: #### C [id number] ####[address] [address] Ur PCP Scrn w/Conf Negative Normal NEG = <25 [facility] Comment on above: Performed By: #### C [id number] ####[address] [address] UA pH 7.0 Normal 4.5 - 7.8 [facility] Comment on above: Performed By: #### C [id number] ####[address] [address] UA Spec Grav 1.015 Normal 1.003-1.035 [facility] Comment on above: Performed By: #### C [id number] ####[place] [address] Circulation Supervisor TIERNEY QC OK Yes Normal [facility] Comment on above: Performed By: #### C [id number] ####[address] [address] Ur Buprenorphine Scrn w/Conf Negative Normal NEG = <10 [facility] Comment on above: Performed By: #### C [id number] ####[address] [address] Progress Note-Nurseon 2022 Progress Note-Nurse Normal [facility] US Biophysical Profile w/ NSTon 07-16-2022 US Biophysical Profile w/ NST Normal [facility] Obstetrics Office/Clinic Not jordyn 07-13-2022 Obstetrics Office/Clinic Note Normal [facility] Progress Note-Nurseon 2022 Progress Note-Nurse Normal [facility] US Biophysical Profile w/ NSTon 07-09-2022 US Biophysical Profile w/ NST Normal [facility] Ambulatory Patient Education on 07-08-2022 Ambulatory Patient Education Normal [facility] Obstetrics Office/Clinic Not jordyn 07-08-2022 Obstetrics Office/Clinic Note Normal [facility] Progress Note-Nurseon 2022 Progress Note-Nurse Normal [facility] US Biophysical Profile w/ NSTon 07-05-2022 US Biophysical Profile w/ NST Normal [facility] Progress Note-Nurseon 2022 Progress Note-Nurse Normal [facility] Ambulatory Patient Education on 06-29-2022 Ambulatory Patient Education Normal [facility] Obstetrics Office/Clinic Not jordyn 06-29-2022 Obstetrics Office/Clinic Note Normal [facility] Progress Note-Nurseon 2022 Progress Note-Nurse Normal [facility] Grp B PCRon 06-25-2022 Allergic to Penicillin? Yes Normal [facility] Comment on above: Performed By: #### C [id number] ####[place] [address] [place] [address] Group B Strep PCR Negative Normal Negative [facility] Comment on above: Result Comment: No G roup B Strep nucleic acid detected.The [employer] GBS Assay is an automated nucleic acid extraction and purification Real-Time PCR detection of Streptococcus agalactiae, Group B Strep nucleic acid sequences. A positive result indicates the presence of GBS nucleic acid from TORRES broth enrichment of vaginal-rectal swab specimens obtained from women. A positive result does not necessarily indicate the presence of viable organisms. Per CDC Recommendation Guidelines, women with positive intrapartum NAAT results for GBS should receive antibiotic prophylaxis with penicillin G, ampicillin, or cefazolin. Reflex susceptibility should be performed prior to use of clindamycin only on GBS isolates from penicillin-allergic women who are considered a high risk for anaphylaxis. Treatment with vancomycin without addtional testing is warranted if resistance to clindamycin is noted. Performed By: #### C [id number] ####[address] [address] Ambulatory Patient Education on 06-24-2022 Ambulatory Patient Education Normal [facility] Free T4on 06-24-2022 Free T4 [Mass/Vol] 0.67 ng/dL Normal 0.61-1.12 [facility] Comment on above: Result Comment: Refe rence Ranges for Females: Females, 1st Trimester 0.52 ? 1.10 ng/dL Females, 2nd Trimester 0.45 ? 0.99 ng/dL Females, 3rd Trimester 0.48 - 0.95 ng/dL Performed By: #### F REET4 ####[address] [address] Obstetrics Office/Clinic Not jordyn 06-24-2022 Obstetrics Office/Clinic Note Normal [facility] Progress Note-Nurseon 2022 Progress Note-Nurse Normal [facility] TSHon 06-24-2022 TSH Qn 1.88 m[IU]/L Normal 0.45-5.33 [facility] Comment on above: Result Comment: Refe rence Ranges for individuals from to 18 years of age were obtained from The [employer] Handbook (20 ed) published by [facility].Reference Ranges for Females: Females, 1st Trimester 0.05 ? 3.7 uIU/mL Females, 2nd Trimester 0.31 ? 4.35 uIU/mL Females, 3rd Trimester 0.41 ? 5.18 uIU/mL Performed By: #### T SH ####[place] [id number] US Biophysical Profile w/ NSTon 06-24-2022 US Biophysical Profile w/ NST Normal [facility] Progress Note-Nurseon 2022 Progress Note-Nurse Normal [facility] US Biophysical Profile w/ NSTon 06-19-2022 US Biophysical Profile w/ NST Normal [facility] Progress Note-Nurseon 2022 Progress Note-Nurse Normal [facility] Progress Note-Nurseon 2022 Progress Note-Nurse Normal [facility] US Biophysical Profile w/ NSTon 06-15-2022 US Biophysical Profile w/ NST Normal [facility] Progress Note-Nurseon 2022 Progress Note-Nurse Normal [facility] Obstetrics Office/Clinic Not jordyn 06-09-2022 Obstetrics Office/Clinic Note Normal [facility] Progress Note-Nurseon 2022 Progress Note-Nurse Normal [facility] Ambulatory Patient Education on 03-15-2023 Ambulatory Patient Education Normal [facility] Free T4on 05-26-2022 Free T4 [Mass/Vol] 0.56 ng/dL Low 0.61-1.12 [facility] Comment on above: Result Comment: Refe rence Ranges for Females: Females, 1st Trimester 0.52 ? 1.10 ng/dL Females, 2nd Trimester 0.45 ? 0.99 ng/dL Females, 3rd Trimester 0.48 - 0.95 ng/dL Performed By: #### F REET4 ####[place] [address] Obstetrics Office/Clinic Not jordyn 05-26-2022 Obstetrics Office/Clinic Note Normal [facility] TSHon 05-26-2022 TSH Qn 1.69 m[IU]/L Normal 0.45-5.33 [facility] Comment on above: Result Comment: Refe rence Ranges for individuals from to 18 years of age were obtained from The [employer] Handbook (20 ed) published by [facility].Reference Ranges for Females: Females, 1st Trimester 0.05 ? 3.7 uIU/mL Females, 2nd Trimester 0.31 ? 4.35 uIU/mL Females, 3rd Trimester 0.41 ? 5.18 uIU/mL Performed By: #### T SH ####[place] [address] Obstetrics Office/Clinic Not jordyn 05-13-2022 Obstetrics Office/Clinic Note Normal [facility] .Glucose 1 Hour Gest ADAon 0 04-29-2022 Glucose [Mass/Vol] 155 mg/dL Normal 70-179 [facility] Comment on above: Performed By: #### C [id number] ####[place] [address] .Glucose 2 Hour Gest ADAon 0 04-29-2022 Glucose [Mass/Vol] 147 mg/dL Normal 70-152 [facility] Comment on above: Performed By: #### C [id number] ####[place] [address] .Glucose Baseline Gest ADAon 04-29-2022 Gluc Baseline Gest ADA 82 mg/dL Normal 70-91 [facility] Comment on above: Performed By: #### C [id number] ####[address] [address] Ambulatory Patient Education on 04-29-2022 Ambulatory Patient Education Normal [facility] CBCon 04-29-2022 Erythrocyte distribution width (RBC) [Ratio] 13.0 % Normal 11.6-14.8 [facility] Comment on above: Performed By: #### C BCI ####[place] [id number] Hematocrit (Bld) [Volume fraction] 32.4 % Low 36.0-46.0 [facility] Comment on above: Performed By: #### C BCI ####[place] [id number] Hemoglobin (Bld) [Mass/Vol] 11.2 g/dL Low 12.0-16.0 [facility] Comment on above: Performed By: #### C BCI ####[place] [id number] MCH (RBC) [Entitic mass] 31.0 pg Normal 27.0-35.0 [facility] Comment on above: Performed By: #### C BCI ####[place] [address] MCHC 34.5 % Normal 31.0-37.0 [facility] Comment on above: Performed By: #### C BCI ####[place] [id number] MCV (RBC) [Entitic vol] 89.8 fL Normal 80.0-100.0 [facility] Comment on above: Performed By: #### C BCI ####[place] [id number] Platelet 207 x10*3/mcL Normal 150-350 [facility] Comment on above: Performed By: #### C BCI ####[address] [address] Platelet mean volume (Bld) [Entitic vol] 7.6 fL Normal 6.7-10.6 [facility] Comment on above: Performed By: #### C BCI ####[address] [address] RBC 3.61 x10*6/mcL Low 3.80-5.20 [facility] Comment on above: Performed By: #### C BCI ####[address] [address] WBC 10.1 x10*3/mcL Normal 4.5-11.0 [facility] Comment on above: Performed By: #### C BCI ####[address] [address] Free T4on 04-29-2022 Free T4 [Mass/Vol] 0.45 ng/dL Low 0.61-1.12 [facility] Comment on above: Result Comment: Refe rence Ranges for Females: Females, 1st Trimester 0.52 ? 1.10 ng/dL Females, 2nd Trimester 0.45 ? 0.99 ng/dL Females, 3rd Trimester 0.48 - 0.95 ng/dL Performed By: #### F REET4 ####[address] [address] Gestational Glucose Toleranc e-2Hr (ADA)on 04-29-2022 Was the appropriate Care Set Ordered? Yes Normal [facility] Comment on above: Performed By: #### C [id number] ####[address] [address] Obstetrics Office/Clinic Not jordyn 04-29-2022 Obstetrics Office/Clinic Note Normal [facility] TSHon 04-29-2022 TSH Qn 2.71 m[IU]/L Normal 0.45-5.33 [facility] Comment on above: Result Comment: Refe rence Ranges for individuals from to 18 years of age were obtained from The [employer] Handbook (20 ed) published by [facility].Reference Ranges for Females: Females, 1st Trimester 0.05 ? 3.7 uIU/mL Females, 2nd Trimester 0.31 ? 4.35 uIU/mL Females, 3rd Trimester 0.41 ? 5.18 uIU/mL Performed By: #### T SH ####[address] [address] Ambulatory Patient Education on 04-07-2022 Ambulatory Patient Education Normal [facility] Obstetrics Office/Clinic Not jordyn 04-07-2022 Obstetrics Office/Clinic Note Normal [facility] US OB > 14 Weekson US OB > 14 Weeks Normal [facility] Free T4on 03-18-2022 Free T4 [Mass/Vol] 0.62 ng/dL Normal 0.61-1.12 [facility] Comment on above: Result Comment: Refe rence Ranges for Females: Females, 1st Trimester 0.52 ? 1.10 ng/dL Females, 2nd Trimester 0.45 ? 0.99 ng/dL Females, 3rd Trimester 0.48 - 0.95 ng/dL Performed By: #### F REET4 ####[address] [address] TSHon 03-18-2022 TSH Qn 1.76 m[IU]/L Normal 0.45-5.33 [facility] Comment on above: Result Comment: Refe rence Ranges for individuals from to 18 years of age were obtained from The [employer] Handbook (20 ed) published by [facility].Reference Ranges for Females: Females, 1st Trimester 0.05 ? 3.7 uIU/mL Females, 2nd Trimester 0.31 ? 4.35 uIU/mL Females, 3rd Trimester 0.41 ? 5.18 uIU/mL Performed By: #### T SH ####[address] [address] ANDREI JOHNSON DIGITAL SCREEN BILA TERALOrdered By: Jeyson Duval on 10-28-2020 No mammographic evidence of malignancy. Given that the patient's lifetime risk for breast cancer is greater than 20%, recommend supplemental screening with annual breast MRI. BIRADS: BIRADS - CATEGORY 1 Negative, no evidence of malignancy. Normal interval follow-up is recommended in 12 months. OVERALL ASSESSMENT - NEGATIVE A letter of notification will be sent to the patient regarding the results. The [employer] recommends annual mammograms for women 40 years and older. [employer] Phone: EXAMINATION: SCREENING DIGITAL BILATERAL MAMMOGRAM WITH TOMOSYNTHESIS 10/27/2020 TECHNIQUE: Screening mammography was performed with tomosynthesis including MLO and CC views of the bilateral breasts. Computer aided detection was used for the interpretation of this exam. COMPARISON: None. Baseline study. HISTORY: Screening. Family history of breast cancer in maternal grandmother. FINDINGS: The breasts are heterogeneously dense, which may obscure small masses. Within that limitation, there is no dominant mass, suspicious microcalcification, or area of architectural distortion. Lifetime risk for breast cancer of 20.4% per the Tyrer-Cuzick model. [employer] Phone: [employer] Phone: XR FOOT LEFT (MIN 3 VIEWS)Or dered By: Jeyson Duval on 08-28-2020 No acute osseous or soft tissue abnormality. [employer] Phone: EXAMINATION: THREE XRAY VIEWS OF THE LEFT FOOT 08/28/2020 7:50 am COMPARISON: None. HISTORY: ORDERING SYSTEM PROVIDED HISTORY: Left foot pain FINDINGS: There is no acute osseous abnormality. The joint spaces are maintained. The surrounding soft tissues are unremarkable. [employer] Phone: [place], [place] Incoming Radiant Results From [email or web address] - 08/28/2020 8:36 AM EDT EXAMINATION: THREE XRAY VIEWS OF THE LEFT FOOT 08/28/2020 7:50 am COMPARISON: None. HISTORY: ORDERING SYSTEM PROVIDED HISTORY: Left foot pain FINDINGS: There is no acute osseous abnormality. The joint spaces are maintained. The surrounding soft tissues are unremarkable. IMPRESSION: No acute osseous or soft tissue abnormality. [employer] Work Phone: [facility] [employer] Work Phone: CBC Auto Differentialon 02-11 Basophils (Bld) [#/Vol] 10*3/uL [place] Basophils/100 WBC (Bld) 1 % 0 - 2 % [place] Differential Type NOT REPORTED [place] Eosinophils (Bld) [#/Vol] 0.10 10*3/uL [place] Eosinophils/100 WBC (Bld) 2 % 1 - 4 % [place] Erythrocyte distribution width (RBC) [Ratio] 11.8 % 11.8 - 14.4 % [place] Hematocrit (Bld) [Volume fraction] 41.4 % 36.3 - 47.1 % [place] Hemoglobin (Bld) [Mass/Vol] 13.4 g/dL 11.9 - 15.1 g/dL [place] Immature granulocytes (Bld) [#/Vol] 10*3/uL [place] Immature granulocytes (Bld) [#/Vol] 0 % 0 [place] Lymphocytes (Bld) [#/Vol] 1.40 10*3/uL [place] Lymphocytes/100 WBC (Bld) 32 % 24 - 43 % [place] MCH (RBC) [Entitic mass] 30.6 pg 25.2 - 33.5 pg [place] MCHC (RBC) [Mass/Vol] 32.4 g/dL 28.4 - 34.8 g/dL [place] MCV (RBC) [Entitic vol] 94.5 fL 82.6 - 102.9 fL [place] Monocytes (Bld) [#/Vol] 0.37 10*3/uL [place] Monocytes/100 WBC (Bld) 8 % 3 - 12 % [place] Platelet mean volume (Bld) [Entitic vol] 9.6 fL 8.1 - 13.5 fL [place] Platelets (Bld) [#/Vol] 213 10*3/uL [place] Platelets (Bld) [#/Vol] NOT REPORTED [place] RBC (Bld) [#/Vol] 4.38 10*6/uL 3.95 - 5.1 1 m/uL [place] RBC morphology finding Nom (Bld) NOT REPORTED [place] Segmented neutrophils/100 WBC (Bld) 57 % 36 - 65 % [place] Segs Absolute 2.52 [place] WBC (Bld) [#/Vol] 0.0 10*3/uL 0.0 per 10 0 WBC [place] WBC (Bld) [#/Vol] 4.4 10*3/uL [place] WBC Morphology NOT REPORTED [place] Comprehensive Metabolic Pane mustapha 02-28-2020 Albumin [Mass/Vol] 4.6 g/dL 3.5 - 5.2 g/dL [place] Albumin/Globulin [Mass ratio] 2.1 {ratio} [place] ALP [Catalytic activity/Vol] 61 U/L 35 - 104 U/L [place] ALT [Catalytic activity/Vol] 12 U/L 5 - 33 U/L [place] Anion gap [Moles/Vol] 5 mmol/L Low 9 - 17 mmol/L [place] AST [Catalytic activity/Vol] 18 U/L <32 [place] Bilirubin Ql (U) 0.49 mg/dL 0.3 - 1.2 mg/dL [place] Bun/Cre Ratio 25 High [place] Calcium [Mass/Vol] 9.2 mg/dL 8.6 - 10. 4 mg/dL [place] Chloride [Moles/Vol] 102 mmol/L 98 - 10 7 mmol/L [place] CO2 [Moles/Vol] 29 mmol/L 20 - 31 mmol/L [place] Creatinine [Mass/Vol] 0.8 mg/dL 0.5 - 0.9 mg/dL [place] GFR >60 >60 mL/min [place] GFR Non- >60 >60 mL/min [place] Glucose [Mass/Vol] 85 mg/dL 70 - 99 mg/dL [place] Interpretation and review of laboratory results Abnormal [place] Potassium [Moles/Vol] 4.4 mmol/L 3.7 - 5.3 mmol/L [place] Protein [Mass/Vol] 6.8 g/dL 6.4 - 8.3 g/dL [place] Sodium [Moles/Vol] 136 mmol/L 135 - 144 mmol/L [place] Urea nitrogen [Mass/Vol] 20 mg/dL 6 - 20 mg/dL [place] Hemoglobin A1Con 02-28-2020 Glucose [Mass/Vol] 85 mg/dL [place] Comment on above: The ADA and AACC rec ommend providing the estimated average glucose result to permit better patient understanding of their HBA1c result. HbA1c (Bld) [Mass fraction] 4.6 % 4 - 6 % [place] Ironon 02-28-2020 Iron [Mass/Vol] 97 ug/dL 37 - 145 ug/dL [place] Lipid Panelon 02-28-2020 Cholesterol [Mass/Vol] 196 mg/dL <200 [place] Comment on above: Cholesterol Guidelines: <200 Desirable 200-240 Borderline >240 Undesirable Cholesterol in HDL [Mass/Vol] 65 mg/dL >40 [place] Comment on above: HDL Guidelines: <40 Undesirable 40-59 Borderline >59 Desirable Cholesterol in LDL [Mass/Vol] 117 mg/dL 0 - 130 mg/dL [place] Comment on above: LDL Guidelines: <100 Desirable 100-129 Near to/above Desirable 130-159 Borderline >159 Undesirable Direct (measured) LDL and calculated LDL are not interchangeable tests. Cholesterol in VLDL [Mass/Vol] NOT REPORTED 1 - 30 mg/dL [place] Cholesterol.total/Ch olesterol in HDL [Mass ratio] 3 {ratio} <5 [place] Triglyceride [Mass/Vol] 69 mg/dL <150 [place] Comment on above: Triglyceride Guidelines: <150 Desirable 150-199 Borderline 200-499 High >499 Very high Based on AHA Guidelines for fasting triglyceride, December 2011. Metabolic Panelon 02-28-2020 GFR/1.73 sq M predicted among non-blacks MDRD (S/P/Bld) [Vol rate/Area] [place] Comment on above: Average GFR for 30-3 9 years old: 107 mL/min/1.73sq m Chronic Kidney Disease: <60 mL/min/1.73sq m Kidney failure: <15 mL/min/1.73sq m eGFR calculated using average adult body mass. Additional eGFR calculator available at: http://www.[employer]/multiple_crcl_2011.htm Stage 1: Some kidney damage normal GFR Stage 2: Mild kidney damage GFR 60-89 Stage 3: Moderate kidney damage GFR 30-59 Stage 4: Severe kidney damage GFR 15-29 Stage 5: Severe kidney damage GFR <15 ESRD - chronic treatment by dialysis or transplant T3 uptake and FTIon 02-28-20 20 Free Thyroxine Index 2 ug/dL 1.4 - 3 .1 ug/dL [place] T4 [Mass/Vol] 30.58 % 22.5 - 37 % [place] T4, Total 6.5 ug/dL 4.5 - 10.9 ug/dL [place] TSH without Reflexon 020 TSH Qn 2.82 m[IU]/L [place] MRI BRAIN WO CONTRASTon 02-11 Unremarkable MRI of the brain without contrast. No findings to suggest etiology of headache. [place] EXAMINATION: MRI OF THE BRAIN WITHOUT CONTRAST 02/27/2020 3:58 pm TECHNIQUE: Multiplanar multisequence MRI of the brain was performed without the administration of intravenous contrast. COMPARISON: None. HISTORY: ORDERING SYSTEM PROVIDED HISTORY: Intractable migraine without status migrainosus, unspecified migraine type TECHNOLOGIST PROVIDED HISTORY: Is the patient ?->No FINDINGS: INTRACRANIAL STRUCTURES/VENTRICLES : The brain parenchyma has normal signal and morphology. There is no acute infarct or mass. No mass effect or midline shift. No evidence of an acute intracranial hemorrhage. The ventricles and sulci are normal in size and configuration. The sellar/suprasellar regions appear unremarkable. The normal signal voids within the major intracranial vessels appear maintained. ORBITS: Orbital structures are unremarkable. SINUSES: Minimal mucoperiosteal thickening in the alveolar recesses of the maxillary sinuses. No mastoid effusion. BONES/SOFT TISSUES: The bone marrow signal intensity appears normal. The soft tissues demonstrate no acute abnormality. [facility] [place], [place] Incoming Radiant Results From [employer] - 02/27/2020 4:31 PM EST EXAMINATION: MRI OF THE BRAIN WITHOUT CONTRAST 02/27/2020 3:58 pm TECHNIQUE: Multiplanar multisequence MRI of the brain was performed without the administration of intravenous contrast. COMPARISON: None. HISTORY: ORDERING SYSTEM PROVIDED HISTORY: Intractable migraine without status migrainosus, unspecified migraine type TECHNOLOGIST PROVIDED HISTORY: Is the patient ?->No FINDINGS: INTRACRANIAL STRUCTURES/VENTRICLES : The brain parenchyma has normal signal and morphology. There is no acute infarct or mass. No mass effect or midline shift. No evidence of an acute intracranial hemorrhage. The ventricles and sulci are normal in size and configuration. The sellar/suprasellar regions appear unremarkable. The normal signal voids within the major intracranial vessels appear maintained. ORBITS: Orbital structures are unremarkable. SINUSES: Minimal mucoperiosteal thickening in the alveolar recesses of the maxillary sinuses. No mastoid effusion. BONES/SOFT TISSUES: The bone marrow signal intensity appears normal. The soft tissues demonstrate no acute abnormality. IMPRESSION: Unremarkable MRI of the brain without contrast. No findings to suggest etiology of headache. [place] XR CHEST (2 VW)on 02-27-2020 No acute process. [place] EXAMINATION: TWO XRA Y VIEWS OF THE CHEST 02/27/2020 4:19 pm COMPARISON: None. HISTORY: ORDERING SYSTEM PROVIDED HISTORY: Histoplasmosis FINDINGS: The lungs are without acute focal process. There is no effusion or pneumothorax. The cardiomediastinal silhouette is without acute process. The osseous structures are without acute process. [place] Incoming Radiant Results From [employer] - 02/27/2020 4:32 PM EST EXAMINATION: TWO XRAY VIEWS OF THE CHEST 02/27/2020 4:19 pm COMPARISON: None. HISTORY: ORDERING SYSTEM PROVIDED HISTORY: Histoplasmosis FINDINGS: The lungs are without acute focal process. There is no effusion or pneumothorax. The cardiomediastinal silhouette is without acute process. The osseous structures are without acute process. IMPRESSION: No acute process. [place] CT SOFT TISSUE NECK W SHANEKA Ba 05-25-2017 CT SOFT TISSUE NECK W CONTRAST HISTORY: Sensation of something stuck in the throat, one year. Dysphagia. Oropharyngeal phase.COMPARISON: No comparison.TECHNIQUE: Helically acquired axial images of the soft tissues of the neck with coronal and sagittal multiplanar reconstructions. IV contrast: Isovue-300, 75 mL. Dose reduction techniques were achieved by using: automated exposure control and/or adjustment of mA and/or kV according to patient size and/or use of iterative reconstruction technique.FINDINGS: The nasopharynx, epiglottis, vallecula, floor of the mouth and prevertebral soft tissues are normal. The vocal cords are normal. Normal thyroid gland. The great vessels show normal enhancement. The lung apices are clear. There are a few small calcified granulomas in the mediastinum and left hilum likely due to old histoplasmosis. The hyoid bone, thyroid and cricoid cartilages are normal. The soft tissues are otherwise normal. The parotid and submandibular glands are normal.There is mucosal thickening in the maxillary air cells without air-fluid level, left greater than right, measuring up to 1.3 cm in AP dimension in the left maxillary sinus. The floor of the skull normal. The orbits are normal.The deckhand crab boat, parapharyngeal and carotid spaces are diffusely normal.The posterior cervical region is normal.No adenopathy. No opaque foreign body.IMPRESSION: Maxillary sinus mucosal thickening left greater than right.Otherwise negative CT scan soft tissue neck.Interpreted by:DAVE Saab Jr.igned by:Wilner Vega Jr., MD3//18Final result Normal [facility] Progress Noteon 04-29-2017 HIM IP Note OR [employer] Specialist Normal [facility] Vital Signs Date Time Vital Sign Value Performing Clinician Nathaniel choudhary 03-21-2017 15:04-0500 BP Diastolic 72 mm[Hg] [facility] Work Phone: 03-21-2017 15:04-0500 BP Systolic 119 mm[Hg] [facility] Work Phone: 03-21-2017 15:04-0500 Pulse (Heart Rate) 104 /min [facility] Work Phone: 03-21-2017 15:04-0500 Respiratory Rate 20 /min [facility] Work Phone: 03-21-2017 15:04-0500 Weight 62.14 kg [facility] Work Phone: Encounters Encounter Date Encounter Type Care Provider Facility Start: 07-05-2023 ambulatory JEYSON Jensen [facility] Start: 05-06-2023 End: 05-09-2023 ambulatory JEYSON Jensen [facility] Start: 05-06-2023 End: 05-08-2023 Subsequent hospital visit by physician Mth Ultrasound Room [facility] Ultrasound Comment on above: Other abnormal and i nconclusive findings on diagnostic imaging of breast Start: 03-01-2023 End: 03-04-2023 ambulatory JEYSON Jensen [facility] Start: 02-21-2023 End: 02-22-2023 ambulatory Doreen Weston APRN-OFFICE SYSTEMS TECHNOLOGY INSTRUCTOR [facility] Start: 01-27-2023 End: 01-28-2023 ambulatory Doreen Weston APRN-OFFICE SYSTEMS TECHNOLOGY INSTRUCTOR Facility:[facility] Start: 09-09-2022 End: 09-10-2022 ambulatory Becca Oseguera MD Facility:[facility] Start: 07-29-2022 End: 07-30-2022 ambulatory Becca Oseguera MD Facility:[facility] Start: 07-19-2022 End: 07-20-2022 ambulatory Sondra Murguia APRN-CNM Facility:[facility] Start: 07-18-2022 End: 07-21-2022 Evaluation and management of inpatient Azul Valera PA-C Facility:[facility] Start: 07-16-2022 End: 07-17-2022 ambulatory Becca Oseguera MD Facility:[facility] Start: 07-15-2022 End: 07-16-2022 ambulatory Hector Guevara MD Facility:[facility] Start: 07-13-2022 End: 07-14-2022 ambulatory Areliraquel Kearneydeena Luke REGISTERED PHYSICAL THERAPIST-CNM Facility:[facility] Start: 07-13-2022 End: 07-14-2022 ambulatory Becca Oseguera MD Facility:[facility] Start: 07-08-2022 End: 07-09-2022 ambulatory Becca Osgeuera MD Facility:[facility] Start: 07-06-2022 ambulatory Hector Guevara MD Facility:[facility] Start: 07-05-2022 ambulatory Becca Oseguera MD Facility:[facility] Start: 07-02-2022 End: 07-03-2022 ambulatory Hector Guevara MD Facility:[facility] Start: 06-30-2022 ambulatory Hector Guevara MD Facility:[facility] Start: 06-29-2022 End: 06-30-2022 ambulatory Hector Guevara MD Facility:[facility] Start: 06-24-2022 End: 06-25-2022 ambulatory Becca Oseguera MD Facility:[facility] Start: 06-21-2022 End: 06-22-2022 ambulatory Hector Guevara MD Facility:[facility] Start: 06-18-2022 End: 06-19-2022 ambulatory Hector Guevara MD Facility:[facility] Start: 06-15-2022 End: 06-16-2022 ambulatory Becca Oseguera MD Facility:[facility] Start: 06-11-2022 End: 06-12-2022 ambulatory Hector Guevara MD Facility:[facility] Start: 06-09-2022 End: 06-10-2022 ambulatory Sondra Forrest Blade REGISTERED PHYSICAL THERAPIST-CNM Facility:[facility] Start: 05-26-2022 End: 05-27-2022 ambulatory Hector Guevara MD Facility:[facility] Start: 05-13-2022 End: 05-14-2022 ambulatory Areli Luke REGISTERED PHYSICAL THERAPIST-CNM Facility:[facility] Start: 04-29-2022 End: 04-30-2022 ambulatory Becca Oseguera MD Facility:[facility] Start: 04-07-2022 End: 2022 ambulatory Hector Guevara MD Facility:[facility] Start: 03-18-2022 End: 03-19-2022 ambulatory Areli Luke REGISTERED PHYSICAL THERAPIST-CNM Facility:[facility] Start: 10-27-2020 End: 10-29-2020 Subsequent hospital visit by physician Melani Mammography Room [facility] Mammography Comment on above: Breast cancer screen ing by mammogram Start: 08-28-[address] JEYSON DUVAL Facility :[facility] Start: 08-28-2020 End: 08-30-2020 Subsequent hospital visit by physician Melani Hernandez Dr Room 2 [facility] Radiology Comment on above: Left foot pain Start: 02-28-2020 End: 02-28-2020 Subsequent hospital visit by physician Jeyson ANDRE [facility] Start: 02-27-2020 End: 02-29-2020 Subsequent hospital visit by physician Melani Hernandez Dr Room 2 [facility] Radiology Comment on above: Histoplasmosis Intractable migraine without status migrainosus, unspecified migraine type Start: 05-25-2017 End: 05-28-2017 Ambulatory [facility] Start: 03-21-2017 Office consultation Adilson moyer Work Phone: [facility] Start: 03-21-2017 End: 03-21-2017 Ambulatory ADILSON WOOD [facility] Phys[facility] Procedures Date Procedure Procedure Detail Performing Clinician Start: 05-06-2023 Us breast uni real t edin with image limited Jeyson Duval MD Work Phone: Start: 10-27-2020 Screening mammograph y bi 2-view breast inc cad Jeyson Duval MD Work Phone: Start: 08-28-2020 Radex foot complete minimum 3 views Jeyson Duval MD Work Phone: Start: 02-28-2020 Assay of iron Jeyson Duval Work Phone: Start: 02-28-2020 Assay of thyroid stimulating hormone tsh Jeyson Duval Work Phone: Start: 02-28-2020 Blood count complete auto&auto difrntl wbc Jeyson Duval Work Phone: Start: 02-28-2020 Comprehensive metabo lic panel Jeyson Duval Work Phone: Start: 02-28-2020 Hemoglobin glycosylated a1c Jeyson Duval Work Phone: Start: 02-28-2020 Lipid panel Jeyson Duval Work Phone: Start: 02-28-2020 Thyroid horm uptk/th yroid hormone binding ratio Jeyson Duval Work Phone: Start: 02-27-2020 Radiologic exam ches t 2 views Jeyson Duval Work Phone: Start: 02-27-2020 Mri brain brain stem w/o contrast material Jeyson Duval Work Phone: Start: 05-25-2017 Ct soft tissue neck w/contrast material SHAHEEN BEAR Plan of Treatment Date Care Activity Detail Author Start: 06-24-2032 DTaP/Tdap/Td vaccine (7 - Td or Tdap) DTaP/Tdap/Td vaccine (7 - Td or Tdap) [employer] Start: 10-12-2022 Influenza vaccination Flu vaccine (#1) [facility] Start: 11-12-2020 Influenza vaccination Flu vaccine (#1) [employer] Work Phone: Start: 10-27-2020 End: 10-27-2020 Patient encounter procedure 10/27/2020 Appointment Radiology [facility] [place] [facility] Start: 11-12-2016 Influenza vaccination SEQUENTIAL INFLUENZA VACCINE (#1) [facility] Work Phone: Start: 2016 Screening for malignant neoplasm of cervix [facility] [employer] Start: 12-09-2012 DTaP/Tdap/Td vaccine (6 - Tdap) DTaP/Tdap/Td vaccine (6 - Tdap) [facility] [employer] [facility] Phone: Start: 2007 Screening for malignant neoplasm of cervix [facility] [employer] Start: 1998 COVID-19 Vaccine (1) COVID-19 Vaccine (1) [facility] [employer] Work Phone: Start: 1998 Depression Screen Depression Screen [facility] [employer] Start: 1997 DTaP/Tdap/Td vaccine (6 - Tdap) DTaP/Tdap/Td vaccine (6 - Tdap) [place] Start: 1987 Varicella vaccine (1 of 2 - 2-dose childhood series) Varicella vaccine (1 of 2 - 2-dose childhood series) [facility] Start: 1986 COVID-19 Vaccine (#1) COVID-19 Vaccine (#1) [facility] Start: 1986 Hepatitis B vaccine (1 of 3 - 3-dose series) Hepatitis B vaccine (1 of 3 - 3-dose series) [facility] Start: 1986 Screening for malignant neoplasm of cervix PAP SMEAR [facility] Work Phone: Start: 1986 Tetanus vaccination TETANUS EVERY 10 YR [facility] Work Phone: Allergy skin tests allergens, each Allergy skin tests allergens, each Routine Chronic rhinitis, unspecified type Ordered: 03/21/2017 [facility] Work Phone: Immunizations Immunization Date Immunization Notes Care Provider Paola norton 02-14-2018 influenza virus vacc ine, unspecified formulation Jeyson Hoy [facility] [employer] Payers Date Payer Category Payer Unknown 2019 Unknown BCBS [place] P PO [id number] 2019-Present [address] [place] [address] [id number] 2019 Unknown [id number] [id number] 2016 Unknown [id number] 2.16.840.1.545051.3.249.13 1986 Unknown [id number] 2.16.840.1.193890.3.579.2.593 1986 Unknown [id number] 2.16.840.1.987964.3.579.2.196 1986 Unknown [id number] 2.16.840.1.837083.3.579.2.196 1986 Unknown [id number] 2.16.840.1.377788.3.579.2.196 1986 Unknown [id number] 2.16.840.1.153228.3.579.2.196 1986 Unknown [id number] 2.16.840.1.737766.3.579.2.196 1986 Unknown [id number] 2.16.840.1.770553.3.579.2.196 1986 Unknown [id number] 2.16.840.1.300814.3.579.2.196 1986 Unknown [id number] 2.16.840.1.718147.3.579.2.196 1986 Unknown [id number] 2.16.840.1.473039.3.579.2.196 1986 Unknown [id number] 2.16.840.1.823341.3.579.2.196 1986 Unknown [id number] 2.16.840.1.089873.3.579.2.196 1986 Unknown [id number] 2.16.840.1.997276.3.579.2.196 1986 Unknown [id number] 2.16.840.1.564173.3.579.2.196 1986 Unknown [id number] 2.16.840.1.442599.3.579.2.196 1986 Unknown [id number] 2.16.840.1.788416.3.579.2.196 1986 Unknown [id number] 2.16.840.1.126989.3.579.2.196 1986 Unknown [id number] 2.16.840.1.378228.3.579.2.196 1986 Unknown [id number] 2.16.840.1.868107.3.579.2.196 1986 Unknown [id number] 2.16.840.1.929471.3.579.2.196 1986 Unknown [id number] 2.16.840.1.899393.3.579.2.196 1986 Unknown [id number] 2.16.840.1.180518.3.579.2.196 1986 Unknown [id number] 2.16.840.1.801419.3.579.2.196 1986 Unknown [id number] 2.16.840.1.683065.3.579.2.196 1986 Unknown [id number] 2.16.840.1.406334.3.579.2.196 1986 Unknown [id number] 2.16.840.1.529224.3.579.2.196 1986 Unknown [id number] 2.16.840.1.231171.3.579.2.196 1986 Unknown [id number] 2.16.840.1.426275.3.579.2.196 1986 Unknown [id number] 2.16.840.1.990878.3.579.2.196 1986 Unknown [id number] 2.16.840.1.976551.3.579.2.196 1986 Unknown [id number] 2.16.840.1.135503.3.579.2.196 1986 Unknown [id number] 2.16.840.1.221697.3.579.2.196 1986 Unknown [id number] 2.16.840.1.102115.3.579.2.196 1986 Unknown [id number] 2.16.840.1.131226.3.579.2.196 1986 Unknown [id number] 2.16.840.1.105462.3.579.2.196 1986 Unknown [id number] 2.16.840.1.850291.3.579.2.196 1986 Unknown [id number] 2.16.840.1.310319.3.579.2.196 1986 Unknown [id number] 2.16.840.1.305318.3.579.2.196 1986 Unknown [id number] 2.16.840.1.804479.3.579.2.196 1986 Unknown [id number] 2.16.840.1.513413.3.579.2.196 1986 Unknown [id number] 2.16.840.1.109954.3.579.2.196 1986 Unknown [id number] 2.16.840.1.505762.3.579.2.196 1986 Unknown [id number] 2.16.840.1.606353.3.579.2.196 1986 Unknown [id number] 2.16.840.1.883403.3.579.2.196 1986 Unknown [id number] 2.16.840.1.210960.3.579.2.196 1986 Unknown [id number] 2.16.840.1.564077.3.579.2.196 1986 Unknown [id number] 2.16.840.1.334445.3.579.2.196 1986 Unknown [id number] 2.16.840.1.794238.3.579.2.196 1986 Unknown [id number] 2.16.840.1.998337.3.579.2.196 1986 Unknown [id number] 2.16.840.1.321018.3.579.2.196 1986 Unknown [id number] 2.16.840.1.637333.3.579.2.196 1986 Unknown [id number] 2.16.840.1.164807.3.579.2.196 1986 Unknown [id number] 2.16.840.1.326622.3.579.2.196 1986 Unknown [id number] 2.16.840.1.474187.3.579.2.196 1986 Unknown [id number] 2.16.840.1.581701.3.579.2.173 1986 Unknown [id number] 2.16.840.1.090691.3.579.2.173 1986 Unknown [id number] 2.16.840.1.177409.3.579.2.173 1986 Unknown [id number] 2.16.840.1.567925.3.579.2.173 1959 Self-pay [id number] Social History Date Type Detail Facility Start: 08-04-2016 End: 03-21-2017 Tobacco smoking status RIIS Never smoker [facility] Work Phone: Start: 1985 Sex Assigned At Not on file [facility] [employer] Work Phone: Start: 08-04-2016 End: 04-29-2017 [facility] use and exposure [facility] Start: 04-29-2017 End: 03-01-2023 Alcohol intake Current drinker of alcohol (finding) [facility] Start: 08-04-2016 Alcohol Comment occ [place] Exposure to SARS-CoV -2 (event) Not sure [facility] Start: 03-01-2023 History of Social function [facility] Start: 03-01-2023 Tobacco use panel OLIVIA Enriquez [facility] Discharge summary note 07-21-2022 Note Date & Type Note Facility 07-21-2022 Note [facility] History and physical note 07-18-2022 Note Date & Type Note Facility 07-18-2022 Note [facility] Evaluation note Note Date & Type Note Facility Evaluation note Diagnosis Left foot pain Pain in limb documented in this encounter [facility] [employer] Phone: Evaluation note Note Date & Type Note Facility Evaluation note Diagnosis Breast cancer screening by mammogram documented in this encounter [facility] Phone: Evaluation note Note Date & Type Note Facility Evaluation note Diagnosis Other abnormal and inconclusive findings on diagnostic imaging of breast documented in this encounter [facility] Instructions * Patient Instructions - Adilson Wood MD - 03/21/2017 4:30 PM EST Rhinitis: Care Instructions Your Care Instructions Rhinitis is swelling and irritation in the nose. Allergies and infections are often the cause. Yournose may run or feel stuffy. Other symptoms are itchy and sore eyes, ears, throat, and mouth. If allergies are the cause, your doctor may do tests to find out what you are allergic to. You may be able to stop symptoms if you avoid the things that cause them. Your doctor may suggest or prescribe medicine to ease your symptoms. Follow-up care is a marquez part of your treatment and safety. Be sure to make and go to all appointments, and call your doctor if you are having problems. It's also a good idea to know your test resultsand keep a list of the medicines you take. How can you care for yourself at home? If your rhinitis is caused by allergies, try to find out what sets off (triggers) your symptoms. Take steps to avoid these triggers. Avoid yard work. It can stir up both pollen and mold. Do not smoke or allow others to smoke around you. If you need help quitting, talk to your doctor about stop-smoking programs and medicines. These can increase your chances of quitting for good. Do not use aerosol sprays, cleaning products, or perfumes. If pollen is one of your triggers, close your house and car windows during blooming season. Clean your house often to control dust. Keep pets outside. If your doctor recommends gsup-gmk-ybaubzs medicines to relieve symptoms, take your medicines exactly as prescribed. Call your doctor if you think you are having a problem with your medicine. Use saline (saltwater) nasal washes to help keep your nasal passages open and wash out mucus and bacteria. You can buy saline nose drops at a grocery store or drugstore. Or you can make your own at home by adding 1 teaspoon of salt and 1 teaspoon of baking soda to 2 cups of distilled water. If you make your own, fill a bulb syringe with the solution, insert the tip into your nostril, and squeeze gently. Blow your nose. When should you call for help? Call your doctor now or seek immediate medical care if: You are having trouble breathing. Watch closely for changes in your health, and be sure to contact your doctor if: Mucus from your nose gets thicker (like pus) or has new blood in it. You have new or worse symptoms. You do not get better as expected. Where can you learn more? Log into your personal health record on [email or web address] and enter M030 in the Education box to learn more about Rhinitis: Care Instructions. Current as of: October 10, 2015 Content Version: 11.2 0168-8035 [employer]. Care instructions adapted under license by your healthcare professional. If you have questions about a medical condition or this instruction, always ask your healthcare professional. [employer] disclaims any warranty or liability for your use of this information. in this encounter Assessments Diagnosis Postnasal drip - Primary Throat fullness Chronic rhinitis, unspecifie d type Diagnosis Histoplasmosis Histoplasmosis, unspecified without mention of manifestation Diagnosis Intractable migraine without status migrainosus, unspecified migraine type Summary Purpose Family History No Family History Records FoundNo Family History Records FoundNo Family History Records FoundNo Family History Records FoundNo Family History Records FoundNo Family History Records Found Advance Directives No Advanced Directives Records FoundDocuments on File Type Date Recorded Patient Policy Intern Expl anation ACP-Advance Directive ACP-Power of Criminal Legal Assistant Documents on File Type Date Recorded Patient Policy Intern Expl anation ACP-Advance Directive ACP-Power of Criminal Legal Assistant Reason for Referral Status Reason Specialty Diagnoses / Procedures Referre d By Contact Referred To Contact Closed Radiology Diagnoses Intractable migraine without status migrainosus, unspecified migraine type Procedures MRI BRAIN WO CONTRAST Jeyson Duval MD [address] [place] [address] Status Reason Specialty Diagnoses / Procedures Referre d By Contact Referred To Contact Closed Radiology Diagnoses Breast cancer screening by mammogram Procedures ANDREI JOHNSON [place]IG[place] [address] [place] [id number] Specialty Diagnoses / Procedures Referred By Contac t Referred To Contact Radiology Diagnoses Other abnormal and inconclusive findings on diagnostic imaging of breast Procedures US BREAST LIMITED RIGHT Jeyson Duval MD [address] [id number] Referral ID Status Reason Start Date Expiration Date Visits Re quested Visits Authorized [id number] Open 03/17/2023 03/16/2024 1 1 Additional Source Comments INFORMATION SOURCE (unrecogn ized section and content) DATE CREATED AUTHOR 09/02/2017 Kassandra angel DATE CREATED AUTHOR AUTHOR'S ORGANIZ ATION 09/02/2017 [facility] DATE CREATED AUTHOR AUTHOR'S ORGANIZ ATION 09/06/2017 [facility] DATE CREATED AUTHOR AUTHOR'S ORGANIZ ATION 08/30/2020 [facility] DATE CREATED AUTHOR AUTHOR'S ORGANIZ ATION 02/22/2023 [facility] DATE CREATED AUTHOR AUTHOR'S ORGANIZ ATION 07/06/2023 [facility] Reason for Visit (unrecogniz ed section and content) Status Reason Specialty Diagnoses / Procedures Referre d By Contact Referred To Contact Closed Radiology Diagnoses Migraine, unspecified, not intractable, without status migrainosus Histoplasmosis, unspecified Procedures HC MRI BRAIN WO CTRST Jeyson Duval MD [address] [place] [address] [facility] [address] [place], [place] [id number] Status Reason Specialty Diagnoses / Procedures Referre d By Contact Referred To Contact Open Radiology Diagnoses Encounter for screening mammogram for malignant neoplasm of breast Procedures HC MAMMOGRAM DIGITAL SCREEN BILAT Jeyson Duval MD [address] [place] [address] [facility] [address] [place] [address] Specialty Diagnoses / Procedures Referred By Contac t Referred To Contact Radiology Diagnoses Other abnormal and inconclusive findings on diagnostic imaging of breast Procedures US BREAST LIMITED RIGHT Jeyson Duval MD [address] [id number] Referral ID Status Reason Start Date Expiration Date Visits Re quested Visits Authorized [id number] Open 03/17/2023 03/16/2024 1 1 Care Teams (unrecognized sec tion and content) Manager Transfer Relationship Specialty Start Date End Date Jeyson Duval MD [address] [place] [address] PCP - General Family Medicine 07/22/16 FOR RECORDS PERTAINING TO PATIENTS WHO ARE OR HAVE BEEN ENROLLED IN A CHEMICAL DEPENDENCY/SUBSTANCEABUSE PROGRAM, SOME INFORMATION MAY BE OMITTED. This clinical summary was aggregated from multiple sources. Caution should be exercised in using it in the provision of clinical care. This summary normalizes information from multiple sources, and as a consequence, information in this document may materially change the coding, format and clinical context of patient data. In addition, data may be omitted in some cases. CLINICAL DECISIONS SHOULD BE BASED ON THE PRIMARY CLINICAL RECORDS. [employer] provides no warranty or guarantee of the accuracy or completeness of information in this document.
[2023-11-07 09:33] LABS: Basophils Percent Auto 0.4 % (0.2-2.0); Eosinophils Absolute Auto 0.1 10^3/uL (0.0-0.7); Eosinophils Percent Auto 1.4 % (0.9-7.0); Hematocrit 42.8 % (36.0-48.0); Hemoglobin 14.3 g/dL (12.0-16.0); Immature Granulocytes Abs Auto 0.01 10^3/uL (0.00-0.03); Immature Granulocytes Pct Auto 0.1 % (0.0-0.5); Lymphocytes Absolute Auto 1.8 10^3/uL (1.2-3.8); Lymphocytes Percent Auto 24.3 % (20.5-60.0); Mean Corpuscular HGB Conc 33.4 g/dL (29.9-35.2); Mean Corpuscular Hemoglobin 30.2 pg (26.7-34.0); Mean Corpuscular Volume 90.5 fL (81.0-99.0); Mean Platelet Volume 9.5 fL (9.5-13.5); Monocytes Absolute Auto 0.5 10^3/uL (0.3-0.8); Monocytes Percent Auto 6.5 % (1.7-12.0); Neutrophils Absolute Auto 4.9 10^3/uL (1.4-6.5); Neutrophils Percent Auto 67.3 % (43.0-75.0); Platelet Count 237 10^3/uL (150-450); Red Blood Count 4.73 10^6/uL (4.20-5.40); White Blood Count 7.3 10^3/uL (4.0-11.0)
[2023-11-07 11:05] LABS: Alanine Aminotransferase 19 U/L (14-59); Albumin Globulin Ratio 1.3; Albumin Level 3.9 g/dL (3.4-5.0); Alkaline Phosphatase 77 U/L (46-116); Anion Gap 11.8; Aspartate Amino Transferase 16 U/L (15-37); BUN Creatinine Ratio 16.1; Bilirubin Total 0.6 mg/dL (0.2-1.0); Chloride 104 mmol/L (98-107); Chol HDL Ratio 2.2; Cholesterol 173 mg/dL (<=200); Estimated GFR (African America >60 (>=60); Estimated GFR (Non-African Ame >60 (>=60); Free T3 2.37 pg/mL (2.18-3.98); Glucose 77 mg/dL (74-106); HDL Cholesterol 77 mg/dL (40-60); Potassium 3.8 mmol/L (3.5-5.1); Sodium 140 mmol/L (136-145); Thyroid Stimulating Hormone 0.917 uIU/mL (0.358-3.740); Total Protein 6.9 g/dL (6.4-8.2); Triglycerides 48 mg/dL (<=150); VLDL CHOLESTEROL 9.6 mg/dL
[2023-11-07 11:28] LABS: Estimated Average Glucose 82 mg/dL; Glycohemoglobin A1C 4.5 % (4.5-6.2)
== END 2023-11-07 09:14 | disposition home or self-care (01) ==
LOC: LAB 09:14
PROVIDERS: PCP Family Medicine; Visit Provider Family Medicine
DX: Z00.00 Encounter for general adult medical examination without abnormal findings (principal)
CPT/HCPCS: 36415; 80053; 80061; 83036; 83540; 84436; 84443; 84481; 85025

== ENCOUNTER 2023-11-28 07:37 | Outpatient (OUT) | payer BC, SELFPAY ==
--- OUTSIDE RECORDS SUMMARY | 2023-11-28 07:41 | XMS_ITS | CCD ---
Author Organization [facility] Care Team Providers Care Home Health Care Respiratory Therapist Name Role Phone Jeyson Duval Unavailable CHEMA VINCENT S Unavailable Unavailable JEYSON DUVAL Unavailable Unavailable ADILSON WOOD Unavailable Unavailable JEYSON DUVAL Unavailable Unavailable SHAHEEN BEAR SJak Unavailable Unavailable Jeyson Duval Primary Care Provider DR JEYSON DUVAL Attending Unavailable DR JEYSON DUVAL Primary Care Unavailable DR JEYSON DUVAL Admitting Unavailable Jeyson Duval MD Primary Care Provider [phone] Trista ALEJANDRO, Doreen Medrano Attending Cathleen Jeyson Quach MD Primary Care Unavaila nimisha ENCINAS, Areli [...] Rojas Attending Unavail Jeyson Montague MD Primary [facility] Unavaila nimisha Oseguera MD, Becca Maldonado Attending Unavailable Simin [facility]UL[facility]availa nimisha Oseguera MD, Becca Maldonado Attending Unavailable [facility]in [facility], [facility] Unavaila nimisha Guevara MD, Hector Rojas Attending Unavail able Simin JULES, Jeyson [facility] Unavaila nimisha Oseguera MD, Becca Maldonado Attending Unavailable Simin [facility]ULES, [facility] Unavaila nimisha Guevara MD, Hector Rojas Attending Unavail able Simin JULES, [facility] Unavaila ble Blade SPANISH INTERPRETER/TRANSLATOR-CNM, Sondra Forrest Attending Un available Simin JULES, Jeyson [facility] Unavaila nimisha Weston APRN-EXPERIENCE PLANNING STRATEGIST, Doreen Medrano Attending Cathleen vailanimisha Duval MD, [facility] Unavaila nimisha Oseguera MD, Becca Maldonado Attending Unavailable Simin JULES, [facility] Unavaila ble Blade SPANISH INTERPRETER/TRANSLATOR-CNM, oSndra Forrest Attending Un available Simin JULES, [facility] Unavaila nimisha Oseguera MD, Becca Maldonado Attending Unavailable Simin JULES, [facility] Unavaila nimisha Oseguera MD, Becca Maldonado Attending Unavailable Simin JULES, [facility] Unavaila nimisha Oseguera MD, Becca Maldonado Attending Unavailable Jeyson Duval MD [facility] Unavaila nimisha Oseguera MD, Becca Maldonado Attending Unavailable Simin JULES, [facility] Unavaila nimisha Guevara MD, Hector Rojas Attending Unavail able iSmin JULES, [facility] Unavaila nimisha Guevara MD, Hector Rojas Attending Unavail able Simin JULES, [facility] Unavaila nimisha Oseguera MD, Becca Maldonado Attending Unavailable Jeyson Duval MD [facility] Unavaila ble Marly GUSMAN-CNCamila, Areli Mosley Attending Un available Jeyson Duval MD [facility] Unavaila nimisha Guevara MD, Hector Rojas Attending Unavail able Simin JULES, [facility] Unavaila nimisha Oseguera MD, Becca Maldonado Attending Unavailable Hoy MD, [facility] Unavaila nimisha Oseguera MD, Becca Maldonado Attending Unavailable Simin JULES, [facility] Unavaila nimisha Duval MD, [facility] Unavaila nimisha Guevara MD, Hector Rojas Attending Unavail able Simin JULES, [facility] Unavaila nimisha Duval MD, [facility] Unavaila nimisha Duval MD, [facility] Unavaila nimisha Oseguera MD, Becca Maldonado Attending Unavailable Simin JULES, [facility] Unavaila nimisha Guevara MD, Hector Rojas Attending Unavail able Simin JULES, [facility] Unavaila nimisha Guevara MD, Hector Rojas Attending Unavail able Simin JULES, [facility] Unavaila nimisha Oseguera MD, Becca Maldonado Attending Unavailable Simin JULES, [facility] Unavaila nimisha ENCINAS, Areli Mosley Attending Un available Simin JULES, [facility] Unavaila nimisha Guevara MD, Hector Rojas Attending Unavail able Simin JULES, [facility] Unavaila nimisha Oseguera MD, Becca Maldonado Attending Unavailable Simin JULES, [facility] Unavaila nimisha Guevara MD, Hector Rojas Attending Unavail able Simin JULES, [facility] Unavaila nimisha Oseguera MD, Becca Maldonado Attending Unavailable Simin JULES, [facility] Unavaila nimisha Osegeura MD, Becca Maldonado Attending Unavailable Simin JULES, [facility] Unavaila nimisha Oseguera MD, Becca Maldonado Attending Unavailable Simin JULES, [facility] Unavaila nimisha Oseguera MD, Becca Maldonado Attending Unavailable Simin JULES, [facility] Unavaila ble Soto HARRELL, [employer] Unavailable Paola JULES, Hector Rojas Admitting Unavail able Paola JULES, Hector Rojas Attending Unavail able Simin JULES, [facility] Unavaila nimisha Duval MD, [facility] Consulting Unavaila nimisha Guevara MD, Hector Rojas Admitting Unavail renato Guevara MD, Hector Rojas Attending Unavail able Simin JULES, [facility] Unavaila nimisha Guevara MD, Hector Rojas Attending Unavail Jeyson Montague MD Primary Care Unavailjuan Guevara MD, Hector Rojas Attending Unavail renato Duval MD, Jeyson Priest Primary Care Unavailjuan Guevara MD, Hector Rojas Attending Unavail renato Duval MD, Jeyson Priest Primary Care UnavailJeyson Rider MD Primary Care Provider [phone] HOY, JEYSON M Referring Unavailable HOY, JEYSON [...] (3 sources) Cephalosporins (Antibiotic) Drug Allergy 04-10-19 03 [facility] Penicillins (antibiotic) (3 sources) Penicillins Drug Allergy 07-07-19 [facility] (4 sources) Cephalosporins (Antibiotic); Translations: [CEPHALOSPORINS] Propensity to adverse reactions to drug 04-10-19 03 [facility] Work Phone: (3 sources) Penicillins; Translations: [PENICILLINS] Propensity to adverse reactions to drug 03-21-19 18 [facility] Work Phone: (6 sources) OTHER; Translations: [OTHER] Propensity to adverse reactions 08-05-19 17 Hives, Itching [facility] Work Phone: (4 sources) Cephalosporins (Antibiotic) Propensity to adverse reactions to drug 04-10-19 03 [facility] [place] (4 sources) Penicillins Propensity to adverse reactions to drug 07-07-19 07 [place], [place] (1 source) surgical glue; Translations: [surgical glue] Propensity to adverse reactions to drug (disorder) [facility] (1 source) Penicillins Propensity to adverse reactions to drug 07-07-19 07 [facility] NEGATED: Highlighted row has been ruled out!Unclassified (4 sources) Other Propensity to adverse reactions 08-05-19 17 Hives, Itching [facility] Medications Current Medications Medication Drug Class(es) Dates [...] Pain 0 Active take [address] [facility] every twelve hours naproxen sodium (ALEVE) 220 [...] conditions (not mental disorders or infectious disease) (5 sources) Patient encounter status; Translations: [Encounter for screening mammogram for malignant neoplasm of breast] Onset: 03-01-2023 Episodic Other upper respiratory disease (3 sources) Chronic rhinitis; Translations: [Chronic rhinitis] Onset: 03-21-2017 03-21-2017 Chronic Residual codes; unclassified (1 source) Family history of malignant neoplasm of breast; Translations: [Family history of malignant neoplasm of breast] Onset: 11-25-2023 Episodic Past or Other Problems Problem Classification Problem [...] Test Name Value Interpretation Reference Range Facility ANDREI [facility] DIGITAL DIAGNOSTIC UNILATERAL RIGHTon 11-25-[address] [facility] JOHNSON DIGITAL DIAGNOSTIC UNILATERAL RIGHT EXAMINATION: DIAGNOSTIC DIGITAL RIGHT BREAST MAMMOGRAM WITH TOMOSYNTHESIS, 11/25/2023 8:36 am TECHNIQUE: Diagnostic mammography of the right breast was performed with tomosynthesis. 2D standard and 3D tomosynthesis combination imaging performed through the right breast. Computer aided detection was utilized in the interpretation of this exam. Views: Diagnostic mammogram spot tomosynthesis view of the right breast in CC projection obtained. COMPARISON: Most recent dated 05/06/2023. HISTORY: ORDERING SYSTEM PROVIDED HISTORY: Inconclusive mammogram TECHNOLOGIST PROVIDED HISTORY: Is the patient ?->No 38-year-old female presents for six-month follow-up of probable benign asymmetry in the lateral right breast. FINDINGS: The breasts are heterogeneously dense, which may obscure small masses. Right breast: Previously noted asymmetry in the lateral right breast, only seen on CC view, appears less conspicuous on today's examination consistent with benign etiology. IMPRESSION: No mammographic evidence of malignancy. BI-RADS 2 BIRADS: BIRADS - CATEGORY 2 Benign Findings. Back to annual screening mammogram due February 2024. OVERALL ASSESSMENT - BENIGN A letter of notification will be sent to the patient regarding the results. [employer] recommends annual mammograms for women 40 years and older. Performing Facility: [place] [id number] Interpreted by: Tara Brooks MD Signed by: Tara Brooks MD 11/25/23 Final result Normal [facility] MRI BREAST BILATERAL W WO CO NTRASTon [...] Tara Brooks MD 07/05/23 Final result Normal [facility] JOHNSON DIGITAL DIAGNOSTIC UNILATERAL RIGHTon 05-06-[address] [facility] JOHNSON DIGITAL DIAGNOSTIC UNILATERAL RIGHT EXAMINATION: DIAGNOSTIC [...] Johnie Lozano DO 05/06/23 Final result Normal [facility] US BREAST LIMITED RIGHTon US BREAST LIMITED [...] Johnie Lozano DO 05/06/23 Final result Normal [facility] US Breast - right limitedOrd ered By: Johnie Lozano on 05-06-2023 Interpretation and review of laboratory results Abnormal [facility] [employer] Work Phone: [facility] Work Phone: US Breast - right limitedon 05-06-2023 Asymmetry persists with spot compression likely summation with no ultrasound correlate. Recommend six-month mammogram follow-up. BIRADS: BIRADS - CATEGORY 3 Probably Benign Findings. A short interval follow-up is recommended in 6 months. OVERALL ASSESSMENT - PROBABLY BENIGN. A letter of notification will be sent to the patient regarding the results. [facility] RIS CONSOLIDATED EXAMINATION: DIAGNOSTIC DIGITAL RIGHT BREAST MAMMOGRAM [...] and demonstrates no solid or cystic mass. [facility] CONSOLIDATED Radiology Study observation (narrative) [facility] JOHNSON DIGITAL SCREEN BILA EDERALodeena 03-01-[address] [facility] JOHNSON DIGITAL SCREEN BILATERAL EXAMINATION: SCREENING DIGITAL [...] Danielle Collins MD 03/01/23 Final result Normal [facility] Gynecology Office/Clinic Not jordyn 02-21-2023 Gynecology Office/Clinic Note Normal [facility] Free T4on 09-09-2022 Free T4 [Mass/Vol] 0.76 ng/dL Normal 0.61-1.12 [facility] Comment on above: Result Comment: Refe rence Ranges for Females: Females, 1st Trimester 0.52 ? 1.10 ng/dL Females, 2nd Trimester 0.45 ? 0.99 ng/dL Females, 3rd Trimester 0.48 - 0.95 ng/dL Performed By: #### F [address] ####[place] [address] TSHon 09-09-2022 TSH Qn 0.96 m[IU]/L Normal 0.45-5.33 [facility] Comment on above: Result Comment: Refe rence Ranges for individuals from to 18 years of age were obtained from The Mary Ann Emerson Handbook (20 ed) published by [facility].Reference Ranges for Females: Females, 1st Trimester 0.05 ? 3.7 uIU/mL Females, 2nd Trimester 0.31 ? 4.35 uIU/mL Females, 3rd Trimester 0.41 ? 5.18 uIU/mL Performed By: #### T SH ####[place] [address] C Urineon 07-31-2022 C Urine Normal [facility] Comment on above: Performed By: #### U RC ####[facility] (DEFAULT)[address] [place], [place] [address] [address] .UA Microscp Aon 07-29-2022 UA Bacteria Present Abnormal Absent [facility] Comment on above: Performed By: #### . Urinalysis Microscopic Auto ####[place] [address] UA Mucus Present Abnormal Absent [facility] Comment on above: Performed By: #### . Urinalysis Microscopic Auto ####[place] [address] UA RBC Quant 0 /HPF Normal 0-5 [facility] Comment on above: Performed By: #### . Urinalysis Microscopic Auto ####[place] [address] UA Squepi Cells Quant 3 /HPF Normal 0-29 [facility] Comment on above: Performed By: #### . Urinalysis Microscopic Auto ####[address] [address] UA WBC Quant 6 /HPF High 0-5 [facility] Comment on above: Performed By: #### . Urinalysis Microscopic Auto ####[address] [address] Gynecology Office/Clinic Not jordyn 07-29-2022 Gynecology Office/Clinic Note Normal [facility] UA w Culture if Indon 2022 Color (U) Light-Yellow Normal [facility] Comment on above: Performed By: #### U CI ####[address] [address] Ketones Ql (U) Negative Normal Negative [facility] Comment on above: Performed By: #### U CI ####[address] [address] UA Blood 1+ Abnormal Negative [facility] Comment on above: Performed By: #### U CI ####[address] [address] UA Clarity Clear Normal [facility] Comment on above: Performed By: #### U CI ####[address] [address] UA Glucose Normal Normal Negative [facility] Comment on above: Performed By: #### U CI ####[address] [address] UA Leukocyte Esterase 75 Abnormal Negative [facility] Comment on above: Performed By: #### U CI ####[address] [address] UA Nitrite Negative Normal Negative [facility] Comment on above: Performed By: #### U CI ####[address] [address] UA pH 6.5 Normal 4.5 - 7.8 [facility] Comment on above: Performed By: #### U CI ####[address] [address] UA Protein Negative Normal Negative [facility] Comment on above: Performed By: #### U CI ####[address] [address] UA Source Clean Catch Normal [facility] Comment on above: Performed By: #### U CI ####[place] [id number] UA Spec Grav 1.011 Normal 1.003-1.035 [facility] Comment on above: Performed By: #### U CI ####[place] [id number] UA Urobilinogen Normal Normal 0.2 - 1.0 [facility] Comment on above: Performed By: #### U CI ####[place] [id number] Urobilinogen (U) [Mass/Vol] Negative Normal Negative [facility] Comment on above: Performed By: #### U CI ####[place] [id number] Inpatient Clinical Summaryon 07-21-2022 Inpatient Clinical Summary Normal [facility] CBC w/ Diffon 07-20-2022 Erythrocyte distribution width (RBC) [Ratio] 13.8 % Normal 11.6-14.8 [facility] Comment on above: Performed By: #### C BC ####[place] [id number] Hematocrit (Bld) [Volume fraction] 26.3 % Low 36.0-46.0 [facility] Comment on above: Performed By: #### C BC ####[place] [id number] Hemoglobin (Bld) [Mass/Vol] 9.0 g/dL Low 12.0-16.0 [facility] Comment on above: Performed By: #### C BC ####[place] [id number] MCH (RBC) [Entitic mass] 31.3 pg Normal 27.0-35.0 [facility] Comment on above: Performed By: #### C BC ####[address] [address] MCHC 34.2 % Normal 31.0-37.0 [facility] Comment on above: Performed By: #### C BC ####[address] [address] MCV (RBC) [Entitic vol] 91.6 fL Normal 80.0-100.0 [facility] Comment on above: Performed By: #### C BC ####[place] [id number] Platelet 165 x10*3/mcL Normal 150-350 [facility] Comment on above: Performed By: #### C BC ####[address] [address] Platelet mean volume (Bld) [Entitic vol] 7.6 fL Normal 6.7-10.6 [facility] Comment on above: Performed By: #### C BC ####[place] [id number] RBC 2.88 x10*6/mcL Low 3.80-5.20 [facility] Comment on above: Performed By: #### C BC ####[place] [id number] WBC 10.1 x10*3/mcL Normal 4.5-11.0 [facility] Comment on above: Performed By: #### C BC ####[address] [address] Diff Autoon 07-20-2022 Baso Absolute 0.1 x10*3/mcL Normal 0.0-0.2 [facility] Comment on above: Performed By: #### . Automated Diff ####[place] [id number] Basophils/100 WBC (Bld) 0.6 % Normal 0.0-1.5 [facility] Comment on above: Performed By: #### . Automated Diff ####[address] [address] Eos Absolute 0.1 x10*3/mcL Normal 0.0-0.4 [facility] Comment on above: Performed By: #### . Automated Diff ####[address] [address] Eosinophils/100 WBC (Bld) 1.4 % Normal 0.0-5.4 [facility] Comment on above: Performed By: #### . Automated Diff ####[address] [address] Lymph Absolute 1.5 x10*3/mcL Normal 1.0-4.8 [facility] Comment on above: Performed By: #### . Automated Diff ####[address] [address] Lymphocytes/100 WBC (Bld) 14.6 % Low 27.2-40.8 [facility] Comment on above: Performed By: #### . Automated Diff ####[address] [address] [place] Absolute 0.7 x10*3/mcL Normal 0.1-1.1 [facility] Comment on above: Performed By: #### . Automated Diff ####[address] [address] Monocytes/100 WBC (Bld) 7.2 % Normal 3.7-11.9 [facility] Comment on above: Performed By: #### . Automated Diff ####[address] [address] Neutro Absolute 7.7 x10*3/mcL Normal 1.8-7.7 [facility] Comment on above: Performed By: #### . Automated Diff ####[address] [address] Neutro Auto 76.2 % High 47.2-70.8 [facility] Comment on above: Performed By: #### . Automated Diff ####[address] [address] Obstetrics Progress Noteon 0 07-20-2022 Obstetrics Progress Note Normal [facility] CBC w/ Diffon 07-19-2022 Erythrocyte distribution width (RBC) [Ratio] 13.9 % Normal 11.6-14.8 [facility] Comment on above: Performed By: #### C BC ####[place] [id number] Hematocrit (Bld) [Volume fraction] 27.9 % Low 36.0-46.0 [facility] Comment on above: Performed By: #### C BC ####[place] [id number] Hemoglobin (Bld) [Mass/Vol] 9.5 g/dL Low 12.0-16.0 [facility] Comment on above: Performed By: #### C BC ####[place] [id number] MCH (RBC) [Entitic mass] 31.0 pg Normal 27.0-35.0 [facility] Comment on above: Performed By: #### C BC ####[place] [id number] MCHC 34.2 % Normal 31.0-37.0 [facility] Comment on above: Performed By: #### C BC ####[place] [id number] MCV (RBC) [Entitic vol] 90.8 fL Normal 80.0-100.0 [facility] Comment on above: Performed By: #### C BC ####[place] [id number] Platelet 176 x10*3/mcL Normal 150-350 [facility] Comment on above: Performed By: #### C BC ####[address] [address] Platelet mean volume (Bld) [Entitic vol] 7.5 fL Normal 6.7-10.6 [facility] Comment on above: Performed By: #### C BC ####[address] [address] RBC 3.08 x10*6/mcL Low 3.80-5.20 [facility] Comment on above: Performed By: #### C BC ####[address] [address] WBC 11.7 x10*3/mcL High 4.5-11.0 [facility] Comment on above: Performed By: #### C BC ####[address] [address] Diff Autoon 07-19-2022 Baso Absolute 0.1 x10*3/mcL Normal 0.0-0.2 [facility] Comment on above: Performed By: #### . Automated Diff ####[address] [address] Basophils/100 WBC (Bld) 0.7 % Normal 0.0-1.5 [facility] Comment on above: Performed By: #### . Automated Diff ####[address] [address] Eos Absolute 0.1 x10*3/mcL Normal 0.0-0.4 [facility] Comment on above: Performed By: #### . Automated Diff ####[address] [address] Eosinophils/100 WBC (Bld) 0.7 % Normal 0.0-5.4 [facility] Comment on above: Performed By: #### . Automated Diff ####[address] [address] Lymph Absolute 1.2 x10*3/mcL Normal 1.0-4.8 [facility] Comment on above: Performed By: #### . Automated Diff ####[address] [address] Lymphocytes/100 WBC (Bld) 10.2 % Low 27.2-40.8 [facility] Comment on above: Performed By: #### . Automated Diff ####[place] [address] [place] Absolute 0.7 x10*3/mcL Normal 0.1-1.1 [facility] Comment on above: Performed By: #### . Automated Diff ####[place] [address] Monocytes/100 WBC (Bld) 6.1 % Normal 3.7-11.9 [facility] Comment on above: Performed By: #### . Automated Diff ####[place] [address] Neutro Absolute 9.6 x10*3/mcL High 1.8-7.7 [facility] Comment on above: Performed By: #### . Automated Diff ####[place] [address] Neutro Auto 82.3 % High 47.2-70.8 [facility] Comment on above: Performed By: #### . Automated Diff ####[place] [address] Obstetrics Progress Noteon 0 07-19-2022 Obstetrics Progress Note Normal [facility] .Fentanyl Scrn with Conf,Uro n 07-18-2022 Ur Fentanyl Scrn w/Confirm Negative Normal NEG <1.0 [facility] Comment on above: Performed By: #### C [id number] ####[place] [address] Ur Fentanyl Scrn w/Confirm Qnt 0.00 ng/mL Normal <=0.99 [facility] Comment on above: Performed By: #### C [id number] ####[place] [address] ABO/Rhon 07-18-2022 ABO/Rh ABO/Rh: A POS Normal [facility] Comment on above: Performed By: #### A KILEY ####[id number] [address] ABSC Autoon 07-18-2022 ABSC Auto Negative Normal [facility] Comment on above: Performed By: #### A SA ####[address] [address] CBC w/ Diffon 07-18-2022 Erythrocyte distribution width (RBC) [Ratio] 13.8 % Normal 11.6-14.8 [facility] Comment on above: Performed By: #### C BC ####[address] [address] Hematocrit (Bld) [Volume fraction] 36.8 % Normal 36.0-46.0 [facility] Comment on above: Performed By: #### C BC ####[address] [address] Hemoglobin (Bld) [Mass/Vol] 12.5 g/dL Normal 12.0-16.0 [facility] Comment on above: Performed By: #### C BC ####[address] [address] MCH (RBC) [Entitic mass] 30.8 pg Normal 27.0-35.0 [facility] Comment on above: Performed By: #### C BC ####[address] [address] MCHC 33.9 % Normal 31.0-37.0 [facility] Comment on above: Performed By: #### C BC ####[address] [address] MCV (RBC) [Entitic vol] 91.1 fL Normal 80.0-100.0 [facility] Comment on above: Performed By: #### C BC ####[address] [address] Platelet 209 x10*3/mcL Normal 150-350 [facility] Comment on above: Performed By: #### C BC ####[address] [address] Platelet mean volume (Bld) [Entitic vol] 8.2 fL Normal 6.7-10.6 [facility] Comment on above: Performed By: #### C BC ####[address] [address] RBC 4.04 x10*6/mcL Normal 3.80-5.20 [facility] Comment on above: Performed By: #### C BC ####[address] [address] WBC 8.8 x10*3/mcL Normal 4.5-11.0 [facility] Comment on above: Performed By: #### C BC ####[address] [address] Diff Autoon 07-18-2022 Baso Absolute 0.0 x10*3/mcL Normal 0.0-0.2 [facility] Comment on above: Performed By: #### . Automated Diff ####[address] [address] Basophils/100 WBC (Bld) 0.4 % Normal 0.0-1.5 [facility] Comment on above: Performed By: #### . Automated Diff ####[address] [address] Eos Absolute 0.0 x10*3/mcL Normal 0.0-0.4 [facility] Comment on above: Performed By: #### . Automated Diff ####[address] [address] Eosinophils/100 WBC (Bld) 0.5 % Normal 0.0-5.4 [facility] Comment on above: Performed By: #### . Automated Diff ####[address] [address] Lymph Absolute 1.4 x10*3/mcL Normal 1.0-4.8 [facility] Comment on above: Performed By: #### . Automated Diff ####[address] [address] Lymphocytes/100 WBC (Bld) 16.2 % Low 27.2-40.8 [facility] Comment on above: Performed By: #### . Automated Diff ####[place] [id number] [place] Absolute 0.6 x10*3/mcL Normal 0.1-1.1 [facility] Comment on above: Performed By: #### . Automated Diff ####[place] [id number] Monocytes/100 WBC (Bld) 6.3 % Normal 3.7-11.9 [facility] Comment on above: Performed By: #### . Automated Diff ####[place] [id number] Neutro Absolute 6.7 x10*3/mcL Normal 1.8-7.7 [facility] Comment on above: Performed By: #### . Automated Diff ####[place] [address] Neutro Auto 76.6 % High 47.2-70.8 [facility] Comment on above: Performed By: #### . Automated Diff ####[place] [address] Operative Reporton 3 Operative Report Normal [facility] UDS OB/Con 07-18-2022 Creatinine [Mass/Vol] 66.9 mg/dL Normal [facility] Comment on above: Performed By: #### C D:[id number] ####[address] [address] Ur Amph Scrn w/Conf Negative Normal NEG = <1000 [facility] Comment on above: Performed By: #### C D:[id number] ####[address] [address] Ur Suha Scrn w/Conf Negative Normal NEG = <200 [facility] Comment on above: Performed By: #### C D:[id number] ####[address] [address] Ur Benzodia Scrn w/Conf Negative Normal NEG = <200 [facility] Comment on above: Performed By: #### C D:[id number] ####[address] [address] Ur Cannab Scrn w/Conf Negative Normal NEG = <50 [facility] Comment on above: Performed By: #### C [id number] ####[address] [address] Ur Cocaine Scrn w/Conf Negative Normal NEG = <300 [facility] Comment on above: Performed By: #### C [id number] ####[address] [address] Ur Methadone Scrn w/Conf Negative Normal NEG = <300 [facility] Comment on above: Performed By: #### C D:[id number] ####[place] [id number] Ur Opiate Scrn w/Conf Negative Normal NEG = <300 [facility] Comment on above: Performed By: #### C D:[id number] ####[address] [address] Ur Oxy Screen w/Conf Negative Normal NEG = <100 [facility] Comment on above: Performed By: #### C D:[id number] ####[address] [address] Ur Oxy Scrn Qnt w/Confirm 0 ng/mL Normal <=99 [facility] Comment on above: Performed By: #### C D:[id number] ####[address] [address] Ur PCP Scrn w/Conf Negative Normal NEG = <25 [facility] Comment on above: Performed By: #### C D:[id number] ####[address] [address] UA pH 7.0 Normal 4.5 - 7.8 [facility] Comment on above: Performed By: #### C D:[id number] ####[address] [address] UA Spec Grav 1.015 Normal 1.003-1.035 [facility] Comment on above: Performed By: #### C [id number] ####[address] [address] Survey Interviewer TIERNEY QC [place] Yes Normal [facility] Comment on above: Performed By: #### C D:[id number] ####[address] [address] Ur Buprenorphine Scrn w/Conf Negative Normal NEG = <10 [facility] Comment on above: Performed By: #### C D:[id number] ####[address] [address] Progress Note-Nurseon 2022 Progress Note-Nurse Normal [facility] US Biophysical Profile w/ NSTon 07-16-2022 US Biophysical Profile w/ NST Normal [facility] Obstetrics Office/Clinic Not jordyn 07-13-2022 Obstetrics Office/Clinic Note Normal [facility] Progress Note-Nurseon 2022 Progress Note-Nurse Normal [facility] US Biophysical Profile w/ NSTon 07-09-2022 US Biophysical Profile w/ NST Normal [facility] Ambulatory Patient Education on 07-08-2022 Ambulatory Patient Education Normal [facility] Obstetrics Office/Clinic Not jordyn 07-08-2022 Obstetrics Office/Clinic Note Normal [facility] Progress Note-Nurseon 2022 Progress Note-Nurse Normal [facility] US Biophysical Profile w/ NSTon 07-05-2022 US Biophysical Profile w/ NST Normal [facility] Progress Note-Nurseon 2022 Progress Note-Nurse Normal [facility] Ambulatory Patient Education on 06-29-2022 Ambulatory Patient Education Normal [facility] Obstetrics Office/Clinic Not jordyn 06-29-2022 Obstetrics Office/Clinic Note Normal [facility] Progress Note-Nurseon 2022 Progress Note-Nurse Normal [facility] Grp B PCRon 06-25-2022 Allergic to Penicillin? Yes Normal [facility] Comment on above: Performed By: #### C D:[id number] ####[place] [address] Group B Strep PCR Negative Normal Negative [facility] Comment on above: Result Comment: No G roup B Strep nucleic acid detected.The [employer] GBS Assay is an automated nucleic acid [...] clindamycin is noted. Performed By: #### C D:[id number] ####[place] [address] Ambulatory Patient Education on 06-24-2022 Ambulatory Patient Education Normal [facility] Free T4on 06-24-2022 Free T4 [Mass/Vol] 0.67 ng/dL Normal 0.61-1.12 [facility] Comment on above: Result Comment: Refe rence Ranges for Females: Females, 1st Trimester 0.52 ? 1.10 ng/dL Females, 2nd Trimester 0.45 ? 0.99 ng/dL Females, 3rd Trimester 0.48 - 0.95 ng/dL Performed By: #### F REET4 ####[place] [id number] Obstetrics Office/Clinic Not jordyn 06-24-2022 Obstetrics Office/Clinic Note Normal [facility] Progress Note-Nurseon 2022 Progress Note-Nurse Normal [facility] TSHon 06-24-2022 TSH Qn 1.88 m[IU]/L Normal 0.45-5.33 [facility] Comment on above: Result Comment: Refe rence Ranges for individuals from to 18 years of age were obtained from The Mary Ann Emerson Handbook (20 ed) published by [facility].Reference Ranges for Females: Females, 1st Trimester 0.05 ? 3.7 uIU/mL Females, 2nd Trimester 0.31 ? 4.35 uIU/mL Females, 3rd Trimester 0.41 ? 5.18 uIU/mL Performed By: #### T ####[place] [address] [place] [address] US Biophysical Profile w/ NSTon 06-24-2022 US Biophysical Profile w/ NST Normal [facility] Progress Note-Nurseon 2022 Progress Note-Nurse Normal [facility] US Biophysical Profile w/ NSTon 06-19-2022 US Biophysical Profile w/ NST Normal [facility] Progress Note-Nurseon 2022 Progress Note-Nurse Normal [facility] Progress Note-Nurseon 2022 Progress Note-Nurse Normal [facility] US Biophysical Profile w/ NSTon 06-15-2022 US Biophysical Profile w/ NST Normal [facility] Progress Note-Nurseon 2022 Progress Note-Nurse Normal [facility] Obstetrics Office/Clinic Not jordyn 06-09-2022 Obstetrics Office/Clinic Note Normal [facility] Progress Note-Nurseon 2022 Progress Note-Nurse Normal [facility] Ambulatory Patient Education on 05-26-2022 Ambulatory Patient Education Normal [facility] Free T4on 05-26-2022 Free T4 [Mass/Vol] 0.56 ng/dL Low 0.61-1.12 [facility] Comment on above: Result Comment: Refe rence Ranges for Females: Females, 1st Trimester 0.52 ? 1.10 ng/dL Females, 2nd Trimester 0.45 ? 0.99 ng/dL Females, 3rd Trimester 0.48 - 0.95 ng/dL Performed By: #### F REET4 ####[place] [address] Obstetrics Office/Clinic Not jordyn 05-26-2022 Obstetrics Office/Clinic Note Normal [facility] TSHon 05-26-2022 TSH Qn 1.69 m[IU]/L Normal 0.45-5.33 [facility] Comment on above: Result Comment: Refe rence Ranges for individuals from to 18 years of age were obtained from The Mary Ann Emerson Handbook (20 ed) published by [facility].Reference Ranges for Females: Females, 1st Trimester 0.05 ? 3.7 uIU/mL Females, 2nd Trimester 0.31 ? 4.35 uIU/mL Females, 3rd Trimester 0.41 ? 5.18 uIU/mL Performed By: #### T SH ####[place] [address] Obstetrics Office/Clinic Not jordyn 05-13-2022 Obstetrics Office/Clinic Note Normal [facility] .Glucose 1 Hour Gest ADAon 0 04-29-2022 Glucose [Mass/Vol] 155 mg/dL Normal 70-179 [facility] Comment on above: Performed By: #### C [id number] ####[place] [address] .Glucose 2 Hour Gest ADAon 0 04-29-2022 Glucose [Mass/Vol] 147 mg/dL Normal 70-152 [facility] Comment on above: Performed By: #### C D:[id number] ####[place] [id number] .Glucose Baseline Gest ADAon 04-29-2022 Gluc Baseline Gest ADA 82 mg/dL Normal 70-91 [facility] Comment on above: Performed By: #### C [id number] ####[place] [address] Ambulatory Patient Education on 04-29-2022 Ambulatory Patient Education Normal [facility] CBCon 04-29-2022 Erythrocyte distribution width (RBC) [Ratio] 13.0 % Normal 11.6-14.8 [facility] Comment on above: Performed By: #### C BCI ####[address] [address] Hematocrit (Bld) [Volume fraction] 32.4 % Low 36.0-46.0 [facility] Comment on above: Performed By: #### C BCI ####[place] [id number] Hemoglobin (Bld) [Mass/Vol] 11.2 g/dL Low 12.0-16.0 [facility] Comment on above: Performed By: #### C BCI ####[address] [address] MCH (RBC) [Entitic mass] 31.0 pg Normal 27.0-35.0 [facility] Comment on above: Performed By: #### C BCI ####[place] [id number] MCHC 34.5 % Normal 31.0-37.0 [facility] Comment on above: Performed By: #### C BCI ####[address] [address] MCV (RBC) [Entitic vol] 89.8 fL Normal 80.0-100.0 [facility] Comment on above: Performed By: #### C BCI ####[address] [address] Platelet 207 x10*3/mcL Normal 150-350 [facility] Comment on above: Performed By: #### C BCI ####[address] [address] Platelet mean volume (Bld) [Entitic vol] 7.6 fL Normal 6.7-10.6 [facility] Comment on above: Performed By: #### C BCI ####[address] [address] RBC 3.61 x10*6/mcL Low 3.80-5.20 [facility] Comment on above: Performed By: #### C BCI ####[place] [id number] WBC 10.1 x10*3/mcL Normal 4.5-11.0 [facility] Comment on above: Performed By: #### C BCI ####[place] [id number] Free T4on 04-29-2022 Free T4 [Mass/Vol] 0.45 ng/dL Low 0.61-1.12 [facility] Comment on above: Result Comment: Refe rence Ranges for Females: Females, 1st Trimester 0.52 ? 1.10 ng/dL Females, 2nd Trimester 0.45 ? 0.99 ng/dL Females, 3rd Trimester 0.48 - 0.95 ng/dL Performed By: #### F REET4 ####[place] [id number] Gestational Glucose Toleranc e-2Hr (ADA)on 04-29-2022 Was the appropriate Care Set Ordered? Yes Normal [facility] Comment on above: Performed By: #### C D:[id number] ####[place] [id number] Obstetrics Office/Clinic Not jordyn 04-29-2022 Obstetrics Office/Clinic Note Normal [facility] TSHon 04-29-2022 TSH Qn 2.71 m[IU]/L Normal 0.45-5.33 [facility] Comment on above: Result Comment: Refe rence Ranges for individuals from to 18 years of age were obtained from The Mary Ann Emerson Handbook (20 ed) published by [facility].Reference Ranges for Females: Females, 1st Trimester 0.05 ? 3.7 uIU/mL Females, 2nd Trimester 0.31 ? 4.35 uIU/mL Females, 3rd Trimester 0.41 ? 5.18 uIU/mL Performed By: #### T SH ####[address] [place] [address] Ambulatory Patient Education on 04-07-2022 Ambulatory Patient Education Normal [facility] Obstetrics Office/Clinic Not jordyn 04-07-2022 Obstetrics Office/Clinic Note Normal [facility] US OB > 14 Weekson US OB > 14 Weeks Normal [facility] neha [facility] Free T4on 03-18-2022 Free T4 [Mass/Vol] 0.62 ng/dL Normal 0.61-1.12 [facility] Comment on above: Result Comment: Refe rence Ranges for Females: Females, 1st Trimester 0.52 ? 1.10 ng/dL Females, 2nd Trimester 0.45 ? 0.99 ng/dL Females, 3rd Trimester 0.48 - 0.95 ng/dL Performed By: #### F REET4 ####[address] [address] TSHon 03-18-2022 TSH Qn 1.76 m[IU]/L Normal 0.45-5.33 [facility] Comment on above: Result Comment: Refe rence Ranges for individuals from to 18 years of age were obtained from The Mary Ann Emerson Handbook (20 ed) published by [facility].Reference Ranges for Females: Females, 1st Trimester 0.05 ? 3.7 uIU/mL Females, 2nd Trimester 0.31 ? 4.35 uIU/mL Females, 3rd Trimester 0.41 ? 5.18 uIU/mL Performed By: #### T SH ####[address] [address] ANDREI JOHNSON DIGITAL SCREEN BILA TERALOrdered By: [...] to the patient regarding the results. The [employer] recommends annual mammograms for women 40 years and older. [employer] Twitter Dashboard: EXAMINATION: SCREENING DIGITAL BILATERAL MAMMOGRAM WITH TOMOSYNTHESIS [...] cancer of 20.4% per the Tyrer-Cuzick model. [employer] Phone: [employer] Phone: XR FOOT LEFT (MIN 3 VIEWS)Or dered By: Jeyson Duval on 08-28-2020 No acute osseous or soft tissue abnormality. [employer] Phone: EXAMINATION: THREE XRAY VIEWS OF THE LEFT FOOT 08/28/2020 7:50 am COMPARISON: None. HISTORY: ORDERING SYSTEM PROVIDED HISTORY: Left foot pain FINDINGS: There is no acute osseous abnormality. The joint spaces are maintained. The surrounding soft tissues are unremarkable. [employer] Phone: [place], [place] Incoming Radiant Results From [facility] - 08/28/2020 8:36 AM EDT EXAMINATION: THREE XRAY VIEWS OF THE LEFT FOOT 08/28/2020 7:50 am COMPARISON: None. HISTORY: ORDERING SYSTEM PROVIDED HISTORY: Left foot pain FINDINGS: There is no acute osseous abnormality. The joint spaces are maintained. The surrounding soft tissues are unremarkable. IMPRESSION: No acute osseous or soft tissue abnormality. [employer] Phone: [employer] Phone: CBC Auto Differentialon 02-11 Basophils (Bld) [#/Vol] 10*3/uL [employer] Basophils/100 WBC (Bld) 1 % 0 - 2 % [employer] [place], [place] Differential Type NOT REPORTED [place] Eosinophils (Bld) [#/Vol] 0.10 10*3/uL [place] Eosinophils/100 WBC (Bld) 2 % 1 - 4 % [place] Erythrocyte distribution width (RBC) [Ratio] 11.8 % 11.8 - 14.4 % [place] Hematocrit (Bld) [Volume fraction] 41.4 % 36.3 - 47.1 % [place] Hemoglobin (Bld) [Mass/Vol] 13.4 g/dL 11.9 - 15.1 g/dL [place] Immature granulocytes (Bld) [#/Vol] 10*3/uL [place] Immature granulocytes (Bld) [#/Vol] 0 % 0 [place] Lymphocytes (Bld) [#/Vol] 1.40 10*3/uL [place] Lymphocytes/100 WBC (Bld) 32 % 24 - 43 % [place] MCH (RBC) [Entitic mass] 30.6 pg 25.2 - 33.5 pg [place] MCHC (RBC) [Mass/Vol] 32.4 g/dL 28.4 - 34.8 g/dL [place] MCV (RBC) [Entitic vol] 94.5 fL 82.6 - 102.9 fL [place] Monocytes (Bld) [#/Vol] 0.37 10*3/uL [place] Monocytes/100 WBC (Bld) 8 % 3 - 12 % [place] Platelet mean volume (Bld) [Entitic vol] 9.6 fL 8.1 - 13.5 fL [place] Platelets (Bld) [#/Vol] 213 10*3/uL [place] Platelets (Bld) [#/Vol] NOT REPORTED [place] RBC (Bld) [#/Vol] 4.38 10*6/uL 3.95 - 5.1 1 m/uL [place] RBC morphology finding Nom (Bld) NOT REPORTED [place] Segmented neutrophils/100 WBC (Bld) 57 % 36 - 65 % [place] Segs Absolute 2.52 [place] WBC (Bld) [#/Vol] 0.0 10*3/uL 0.0 per 10 0 WBC [place] WBC (Bld) [#/Vol] 4.4 10*3/uL [place] WBC Morphology NOT REPORTED [place] Comprehensive Metabolic Pane mustapha 02-28-2020 Albumin [Mass/Vol] 4.6 g/dL 3.5 - 5.2 g/dL [place] Albumin/Globulin [Mass ratio] 2.1 {ratio} [place] ALP [Catalytic activity/Vol] 61 U/L 35 - 104 U/L [place] ALT [Catalytic activity/Vol] 12 U/L 5 - 33 U/L [place] Anion gap [Moles/Vol] 5 mmol/L Low 9 - 17 mmol/L [place] AST [Catalytic activity/Vol] 18 U/L <32 [place] Bilirubin Ql (U) 0.49 mg/dL 0.3 - 1.2 mg/dL [place] Bun/Cre Ratio 25 High [place], [place] Calcium [Mass/Vol] 9.2 mg/dL 8.6 - 10. 4 mg/dL [place] Chloride [Moles/Vol] 102 mmol/L 98 - 10 7 mmol/L [place] CO2 [Moles/Vol] 29 mmol/L 20 - 31 mmol/L [place] Creatinine [Mass/Vol] 0.8 mg/dL 0.5 - 0.9 mg/dL [place] GFR >60 >60 mL/min [place] GFR Non- >60 >60 mL/min [place] Glucose [Mass/Vol] 85 mg/dL 70 - 99 mg/dL [place] Interpretation and review of laboratory results Abnormal [place] Potassium [Moles/Vol] 4.4 mmol/L 3.7 - 5.3 mmol/L [place] Protein [Mass/Vol] 6.8 g/dL 6.4 - 8.3 g/dL [place] Sodium [Moles/Vol] 136 mmol/L 135 - 144 mmol/L [place] Urea nitrogen [Mass/Vol] 20 mg/dL 6 - 20 mg/dL [place] Hemoglobin A1Con 02-28-2020 Glucose [Mass/Vol] 85 mg/dL [place] Comment on above: The ADA and AACC rec ommend providing the estimated average glucose result to permit better patient understanding of their HBA1c result. HbA1c (Bld) [Mass fraction] 4.6 % 4 - 6 % [place] Ironon 02-28-2020 Iron [Mass/Vol] 97 ug/dL 37 - 145 ug/dL [place] Lipid Panelon 02-28-2020 Cholesterol [Mass/Vol] 196 mg/dL <200 [place] Comment on above: Cholesterol Guidelines: <200 Desirable 200-240 Borderline >240 Undesirable Cholesterol in HDL [Mass/Vol] 65 mg/dL >40 [place] Comment on above: HDL Guidelines: <40 Undesirable 40-59 Borderline >59 Desirable Cholesterol in LDL [Mass/Vol] 117 mg/dL 0 - 130 mg/dL [place] Comment on above: LDL Guidelines: <100 Desirable 100-129 Near to/above Desirable 130-159 Borderline >159 Undesirable Direct (measured) LDL and calculated LDL are not interchangeable tests. Cholesterol in VLDL [Mass/Vol] NOT REPORTED 1 - 30 mg/dL [place] Cholesterol.total/Ch olesterol in HDL [Mass ratio] 3 {ratio} <5 [place] Triglyceride [Mass/Vol] 69 mg/dL <150 [place] Comment on above: Triglyceride Guidelines: <150 Desirable 150-199 Borderline 200-499 High >499 Very high Based on AHA Guidelines for fasting triglyceride, December 2011. Metabolic Panelon 02-28-2020 GFR/1.73 sq M predicted among non-blacks MDRD (S/P/Bld) [Vol rate/Area] [place] Comment on above: Average GFR for 30-3 9 years old: 107 mL/min/1.73sq m Chronic Kidney Disease: <60 mL/min/1.73sq m Kidney failure: <15 mL/min/1.73sq m eGFR calculated using average adult body mass. Additional eGFR calculator available at: http://www.[employer]multiple_crcl_2012.htm Stage 1: Some kidney damage normal GFR Stage 2: Mild kidney damage GFR 60-89 Stage 3: Moderate kidney damage GFR 30-59 Stage 4: Severe kidney damage GFR 15-29 Stage 5: Severe kidney damage GFR <15 ESRD - chronic treatment by dialysis or transplant T3 uptake and FTIon 02-28-20 20 Free Thyroxine Index 2 ug/dL 1.4 - 3 .1 ug/dL [place] T4 [Mass/Vol] 30.58 % 22.5 - 37 % [place] T4, Total 6.5 ug/dL 4.5 - 10.9 ug/dL [place] TSH without Reflexon 020 TSH Qn 2.82 m[IU]/L [place] MRI BRAIN WO CONTRASTon 02-11 Unremarkable MRI of the brain without contrast. No findings to suggest etiology of headache. [place] EXAMINATION: MRI OF THE BRAIN WITHOUT [...] The soft tissues demonstrate no acute abnormality. [place], [employer] Incoming Radiant Results From [employer] - 02/27/2020 4:31 PM EST EXAMINATION: MRI [...] No findings to suggest etiology of headache. [employer] [place] XR CHEST (2 VW)on 02-27-2020 No acute process. [facility] [place] EXAMINATION: TWO XRA Y VIEWS OF THE CHEST 02/27/2020 4:19 pm COMPARISON: None. HISTORY: ORDERING SYSTEM PROVIDED HISTORY: Histoplasmosis FINDINGS: The lungs are without acute focal process. There is no effusion or pneumothorax. The cardiomediastinal silhouette is without acute process. The osseous structures are without acute process. [employer] [place], [place] Incoming Radiant Results From [employer] - 02/27/2020 4:32 PM EST EXAMINATION: TWO XRAY VIEWS OF THE CHEST 02/27/2020 4:19 pm COMPARISON: None. HISTORY: ORDERING SYSTEM PROVIDED HISTORY: Histoplasmosis FINDINGS: The lungs are without acute focal process. There is no effusion or pneumothorax. The cardiomediastinal silhouette is without acute process. The osseous structures are without acute process. IMPRESSION: No acute process. [employer] [employer] [place] [address] SOFT TISSUE NECK W CONTRA STon 05-25-2017 CT SOFT TISSUE NECK W CONTRAST [...] the skull normal. The orbits are normal.The cane piler, parapharyngeal and carotid spaces are diffusely normal.The posterior cervical region is normal.No adenopathy. 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 Vital Signs Date Time Vital Sign Value Performing Clinician Nathaniel choudhary 03-21-2017 15:04-0500 BP Diastolic 72 mm[Hg] [facility] Work Phone: 03-21-2017 15:04-0500 BP Systolic 119 mm[Hg] [facility] Work Phone: 03-21-2017 15:04-0500 Pulse (Heart Rate) 104 /min [facility] Work Phone: 03-21-2017 15:04-0500 Respiratory Rate 20 /min [facility] Work Phone: 03-21-2017 15:04-0500 Weight 62.14 kg Adilson Wood [facility] Work Phone: Encounters Encounter Date Encounter Type Care Provider Facility Start: 11-25-2023 ambulatory [facility] Start: 07-05-2023 End: 07-07-2023 ambulatory JEYSON Cannon [facility] Start: 05-06-2023 End: 05-08-2023 Subsequent hospital visit by physician Mth Ultrasound Room [facility] Ultrasound Comment on above: Other abnormal and i nconclusive findings on diagnostic imaging of breast Start: 05-06-2023 End: 05-08-2023 ambulatory JEYSON Jensen [facility] Start: 03-01-2023 End: 03-03-2023 ambulatory [facility] DUVAL [facility] Start: 02-21-2023 End: 02-22-2023 ambulatory Doreen Weston SPANISH INTERPRETER/TRANSLATOR-EXPERIENCE PLANNING STRATEGIST Facility:[facility] Start: 01-27-2023 End: 01-28-2023 ambulatory Doreen Weston SPANISH INTERPRETER/TRANSLATOR-EXPERIENCE PLANNING STRATEGIST Facility:[facility] Start: 09-09-2022 End: 09-10-2022 ambulatory Becca Oseguera MD Facility:[facility] Start: 07-29-2022 End: 07-30-2022 ambulatory Becca Oseguera MD Facility:[facility] Start: 07-19-2022 End: 07-20-2022 ambulatory Sondra Murguia SPANISH INTERPRETER/TRANSLATOR-CNM Facility:[facility] Start: 07-18-2022 End: 07-21-2022 Evaluation and management of inpatient Azul Valera PA-C Facility:[facility] Start: 07-16-2022 End: 07-17-2022 ambulatory Becca Oseguera MD Facility:[facility] Start: 07-15-2022 End: 07-16-2022 ambulatory Hector Guevara MD Facility:[facility] Start: 07-13-2022 End: 07-14-2022 ambulatory Areli Luke APRN-CNM Facility:[facility] Start: 07-13-2022 End: 07-14-2022 ambulatory Becca Oseguera MD Facility:[facility] Start: 07-08-2022 End: 07-09-2022 ambulatory Becca Oseguera MD Facility:[facility] Start: 07-06-2022 ambulatory Hector Guevara MD Facility:[facility] Start: 07-05-2022 ambulatory Becca Oseguera MD Facility:[facility] Start: 07-02-2022 End: 07-03-2022 ambulatory Hector Guevara MD Facility:[facility] Start: 06-30-2022 ambulatory Hector Guevara MD Facility:[facility] Start: 06-29-2022 End: 06-30-2022 ambulatory Hector Guevara MD Facility:[facility] Start: 06-24-2022 End: 06-25-2022 ambulatory Becca Oseguera MD Facility:[facility] Start: 06-21-2022 End: 06-22-2022 ambulatory Hector Guevara MD Facility:[facility] Start: 06-18-2022 End: 06-19-2022 ambulatory Hector Guevara MD Facility:[facility] Start: 06-15-2022 End: 06-16-2022 ambulatory Becca Oseguera MD Facility:[facility] Start: 06-11-2022 End: 06-12-2022 ambulatory Hector Guevara MD Facility:[facility] Start: 06-09-2022 End: 06-10-2022 ambulatory Sondra Murguia APRN-CNM Facility:[facility] Start: 05-26-2022 End: 05-27-2022 ambulatory Hector Guevara MD Facility:[facility] Start: 05-13-2022 End: 05-14-2022 ambulatory Areli Luke SPANISH INTERPRETER/TRANSLATOR-CNM Facility:[facility] Start: 04-29-2022 End: 04-30-2022 ambulatory Becca Oseguera MD Facility:[facility] Start: 04-07-2022 End: 2022 ambulatory Hector Guevara MD Facility:[facility] Start: 03-18-2022 End: 03-19-2022 ambulatory Areli Luke SPANISH INTERPRETER/TRANSLATOR-CNM Facility:[facility] Start: 10-27-2020 End: 10-29-2020 Subsequent hospital visit by physician Melani [facility]ammography [facility] Mammography Comment on above: Breast cancer screen ing by mammogram Start: 08-28-[address] JEYSON DUVAL Facility : Start: 08-28-2020 End: 08-30-2020 Subsequent hospital visit by physician Melani Xr Dr Room 2 [facility] Radiology Comment on above: Left foot pain Start: 02-28-2020 End: 02-28-2020 Subsequent [facility] Start: 02-27-2020 End: 02-29-2020 Subsequent hospital visit by physician Melani Hernandez Dr Room 2 [facility] Radiology Comment on above: Histoplasmosis Intractable migraine without status migrainosus, unspecified migraine type Start: 05-25-2017 End: 05-28-2017 Ambulatory [facility] Start: 03-21-2017 Office consultation Adilson moyer Work Phone: [facility] Start: 03-21-2017 End: 03-21-2017 Ambulatory ADILSON WOOD [facility] Procedures Date Procedure Procedure Detail [...] DTaP/Tdap/Td vaccine (7 - Td or Tdap) [facility] Start: 10-12-2022 Influenza vaccination Flu vaccine (#1) [facility] Start: 11-12-2020 Influenza vaccination Flu vaccine (#1) [facility] [employer] Work Phone: Start: 10-27-2020 End: 10-27-2020 Patient encounter procedure 10/27/2020 Appointment Radiology [facility] Start: 11-12-2016 Influenza vaccination SEQUENTIAL INFLUENZA VACCINE (#1) [facility] Work Phone: Start: 2016 Screening for malignant neoplasm of cervix [facility] Start: 12-09-2012 DTaP/Tdap/Td vaccine (6 - Tdap) DTaP/Tdap/Td vaccine (6 - Tdap) [facility] Work Phone: Start: 2007 Screening for malignant neoplasm of cervix [facility] Start: 1998 COVID-19 Vaccine (1) COVID-19 Vaccine (1) [facility] [employer] Phone: Start: 1998 Depression Screen Depression Screen [facility] Start: 1997 DTaP/Tdap/Td vaccine (6 - Tdap) DTaP/Tdap/Td vaccine (6 - Tdap) [facility] [place] Start: 1987 Varicella vaccine (1 of 2 - 2-dose childhood series) Varicella vaccine (1 of 2 - 2-dose childhood series) [facility] Start: 1986 COVID-19 Vaccine (#1) COVID-19 Vaccine (#1) [facility] [employer] Start: 1986 Hepatitis B vaccine (1 of 3 - 3-dose series) Hepatitis B vaccine (1 of 3 - 3-dose series) [facility] Start: 1986 Screening for malignant neoplasm of cervix [employer] Phone: Start: 1986 Tetanus vaccination TETANUS EVERY 10 YR [employer] Work Phone: Allergy skin tests allergens, each Allergy skin tests allergens, each Routine Chronic rhinitis, unspecified type Ordered: 03/21/2017 [employer] Phone: Immunizations Immunization Date Immunization Notes Care Provider Paola norton 02-14-2018 influenza virus vacc ine, unspecified formulation Jeyson Hoy [facility] [employer] Payers Date Payer Category Payer Unknown 2019 Unknown BCBS BC[place] - [place] P PO [id number] 2019-Present [address] [place] [address] [id number] [id number] 2019 Unknown [id number] 1.2.840.974075.1.13.239.2.7.3.67 8671.315 2016 Unknown [id number] 2.16.840.1.581488.3.249.13 1986 Unknown [id number] 2.16.840.1.695737.3.579.2.593 1986 Unknown [id number] 2.16.840.1.821203.3.579.2.196 1986 Unknown [id number] 2.16.840.1.859818.3.579.2.196 1986 Unknown [id number] 2.16.840.1.164819.3.579.2.196 1986 Unknown [id number] 2.16.840.1.759917.3.579.2.196 1986 Unknown [id number] 2.16.840.1.148395.3.579.2.196 1986 Unknown [id number] 2.16.840.1.724118.3.579.2.196 1986 Unknown [id number] 2.16.840.1.145205.3.579.2.196 1986 Unknown [id number] 2.16.840.1.020752.3.579.2.196 1986 Unknown [id number] 2.16.840.1.712262.3.579.2.196 1986 Unknown [id number] 2.16.840.1.427938.3.579.2.196 1986 Unknown [id number] 2.16.840.1.693723.3.579.2.196 1986 Unknown [id number] 2.16.840.1.297395.3.579.2.196 1986 Unknown [id number] 2.16.840.1.273134.3.579.2.196 1986 Unknown [id number] 2.16.840.1.050610.3.579.2.196 1986 Unknown [id number] 2.16.840.1.120595.3.579.2.196 1986 Unknown [id number] 2.16.840.1.339948.3.579.2.196 1986 Unknown [id number] 2.16.840.1.764062.3.579.2.196 1986 Unknown [id number] 2.16.840.1.692167.3.579.2.196 1986 Unknown [id number] 2.16.840.1.802916.3.579.2.196 1986 Unknown [id number] 2.16.840.1.710602.3.579.2.196 1986 Unknown [id number] 2.16.840.1.214362.3.579.2.196 1986 Unknown [id number] 2.16.840.1.559913.3.579.2.196 1986 Unknown [id number] 2.16.840.1.526518.3.579.2.196 1986 Unknown [id number] 2.16.840.1.813894.3.579.2.196 1986 Unknown [id number] 2.16.840.1.033421.3.579.2.196 1986 Unknown [id number] 2.16.840.1.606101.3.579.2.196 1986 Unknown [id number] 2.16.840.1.085219.3.579.2.196 1986 Unknown [id number] 2.16.840.1.937319.3.579.2.196 1986 Unknown [id number] 2.16.840.1.178540.3.579.2.196 1986 Unknown [id number] 2.16.840.1.764518.3.579.2.196 1986 Unknown [id number] 2.16.840.1.075820.3.579.2.196 1986 Unknown [id number] 2.16.840.1.637314.3.579.2.196 1986 Unknown [id number] 2.16.840.1.918898.3.579.2.196 1986 Unknown [id number] 2.16.840.1.054910.3.579.2.196 1986 Unknown [id number] 2.16.840.1.663282.3.579.2.196 1986 Unknown [id number] 2.16.840.1.056255.3.579.2.196 1986 Unknown [id number] 2.16.840.1.603205.3.579.2.196 1986 Unknown [id number] 2.16.840.1.513271.3.579.2.196 1986 Unknown [id number] 2.16.840.1.109468.3.579.2.196 1986 Unknown [id number] 2.16.840.1.569656.3.579.2.196 1986 Unknown [id number] 2.16.840.1.526892.3.579.2.196 1986 Unknown [id number] 2.16.840.1.771549.3.579.2.196 1986 Unknown [id number] 2.16.840.1.905360.3.579.2.196 1986 Unknown [id number] 2.16.840.1.225088.3.579.2.196 1986 Unknown [id number] 2.16.840.1.868934.3.579.2.196 1986 Unknown [id number] 2.16.840.1.099423.3.579.2.196 1986 Unknown [id number] 2.16.840.1.533883.3.579.2.196 1986 Unknown [id number] 2.16.840.1.062299.3.579.2.196 1986 Unknown [id number] 2.16.840.1.068729.3.579.2.196 1986 Unknown [id number] 2.16.840.1.049487.3.579.2.196 1986 Unknown [id number] 2.16.840.1.942164.3.579.2.196 1986 Unknown [id number] 2.16.840.1.109321.3.579.2.196 1986 Unknown [id number] 2.16.840.1.530293.3.579.2.196 1986 Unknown [id number] 2.16.840.1.181909.3.579.2.173 1986 Unknown [id number] 2.16.840.1.654519.3.579.2.173 1986 Unknown [id number] 2.16.840.1.956991.3.579.2.173 1986 Unknown [id number] 2.16.840.1.099076.3.579.2.173 1986 Unknown [id number] 2.16.840.1.249726.3.579.2.173 1959 Self-pay [id number] Social History Date Type Detail Facility Start: 08-04-2016 End: 03-21-2017 Tobacco smoking status MOIS Never smoker [employer] Work Phone: Start: 1986 Sex Assigned At Not on file [employer] Work Phone: Start: 08-04-2016 End: 04-29-2017 Tobacco use and exposure Never used [place] Start: 04-29-2017 End: 03-01-2023 Alcohol intake Current drinker of alcohol (finding) [place] Start: 08-04-2016 Alcohol Comment [facility] [place] [facility] to [facility]-CoV -2 (event) Not sure [facility] Start: 03-01-2023 History of Social function [facility] Start: 03-01-2023 Tobacco use panel OLIVIA Enriquez [facility] Discharge summary note 07-21-2022 Note Date & Type Note Facility 07-21-2022 Note [facility] History and physical note 07-18-2022 Note Date & Type Note Facility 07-18-2022 Note [facility] Evaluation note Note Date & Type Note Facility Evaluation note Diagnosis Left foot pain Pain in limb [facility]: Evaluation note Note Date & Type Note Facility Evaluation note Diagnosis Breast cancer screening by mammogram [facility]: Evaluation note Note Date & Type Note Facility Evaluation note Diagnosis Other abnormal and inconclusive findings on diagnostic imaging of breast documented in this encounter [facility] Instructions * Patient Instructions - Adilson Wood [...] Keep pets outside. If your doctor recommends fmcn-dad-mhubygo medicines to relieve symptoms, take your medicines [...] Log into your personal health record on [email or web address] and enter M030 in the Education box to learn more about Rhinitis: Care Instructions. Current as of: October 10, 2015 Content Version: 11.2 3599-0312 [employer]. Care instructions adapted under license by your healthcare professional. If you have questions about a medical condition or this instruction, always ask your healthcare professional. 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 ACP-Advance Directive ACP-Power of Salon Customer Experience Specialist Reason for Referral Status Reason Specialty Diagnoses / Procedures Referre d By Contact Referred To Contact Closed Radiology Diagnoses Intractable migraine without status migrainosus, unspecified migraine type Procedures MRI BRAIN WO CONTRAST Jeyson Duval MD [address] [place] [address] Status Reason Specialty Diagnoses / Procedures Referre d By Contact Referred To Contact Closed Radiology Diagnoses Breast cancer screening by mammogram Procedures ANDREI JOHNSON DIGITAL SCREEN BILATERAL Jeyson Duval MD [address] [place] [address] Specialty Diagnoses / Procedures Referred By Contac t Referred To Contact Radiology Diagnoses Other abnormal and inconclusive findings on diagnostic imaging of breast Procedures US BREAST LIMITED RIGHT Jeyson Duval MD [address] [place] [address] Referral ID Status Reason Start Date Expiration Date Visits Re quested Visits Authorized [id number] Open 03/17/2023 03/16/2024 1 1 Additional Source Comments INFORMATION SOURCE (unrecogn ized section and content) DATE CREATED AUTHOR 09/02/2017 [facility] Migue jeanne DATE CREATED AUTHOR AUTHOR'S ORGANIZ ATION 09/02/2017 [facility] DATE CREATED AUTHOR AUTHOR'S ORGANIZ ATION 09/06/2017 [facility] DATE CREATED AUTHOR AUTHOR'S ORGANIZ ATION 08/30/2020 [facility] DATE CREATED AUTHOR AUTHOR'S ORGANIZ ATION 02/22/2023 [facility] DATE CREATED AUTHOR AUTHOR'S ORGANIZ ATION 11/27/2023 [facility] Reason for Visit (unrecogniz ed section and content) Status Reason Specialty Diagnoses / Procedures Referre d By Contact Referred To Contact Closed Radiology Diagnoses Migraine, unspecified, not intractable, without status migrainosus Histoplasmosis, unspecified Procedures HC MRI BRAIN WO CTRST Jeyson Duval MD [address] [place] [address] [facility] [address] [place] [address] Status Reason Specialty Diagnoses / Procedures Referre d By Contact Referred To Contact Open Radiology Diagnoses Encounter for screening mammogram for malignant neoplasm of breast Procedures HC MAMMOGRAM DIGITAL SCREEN BILAT Jeyson Duval MD [address] [place] [id number] [facility] [address] [place], [place] [id number] Specialty Diagnoses / Procedures Referred By Contac t Referred To Contact Radiology Diagnoses Other abnormal and inconclusive findings on diagnostic imaging of breast Procedures US BREAST LIMITED RIGHT Jeyson Duval MD [address] [place] [address] Referral ID Status Reason Start Date Expiration Date Visits Re quested Visits Authorized [id number] Open 03/17/2023 03/16/2024 1 1 Care Teams (unrecognized sec tion and content) Home Health Care Respiratory Therapist Relationship Specialty Start Date End Date Jeyson Duval MD [address] [place] [address] PCP - General Family Medicine 07/22/16 FOR [...] BE BASED ON THE PRIMARY CLINICAL RECORDS. Data [facility]. provides no warranty or guarantee of the accuracy or completeness of information in this document.
== END 2023-11-28 07:38 | disposition home or self-care (01) ==
PROVIDERS: PCP Family Medicine; Visit Provider Family Medicine
DX: R00.2 Palpitations (principal)
CPT/HCPCS: 93246

== ENCOUNTER 2025-01-11 09:12 | Outpatient (OUT) | payer BC, SELFPAY ==
--- OUTSIDE RECORDS SUMMARY | 2025-01-11 09:17 | XMS_ITS | Patient Health Record ---
Author Organization [facility] Address [address] [place] [address] Care Team Providers Care Lion Tamer Name Role Phone Rajendra Duval Primary Care Provider [phone] Allergies Allergen (clinical drug ingredient) Drug/Non Drug Allergy documented on EMR Reaction Allergy Type Onset Date Status Medicinal cephalosporin and acting as antibacterial agent (FN) Cephalosporins rash Drug Allergy ActiveSurgical GluehivesAllergyActivePenicillinrashDrug AllergyActive Reason For Referral No Information Medications Medication SIG (Take, Route, Frequency, Duration) Notes Start Date End Date Status valACYclovir HCl 500 MG 1 tablet Orally tid; Duration: 10 days As needed 4ActiveLevothyroxine Sodium 50 MCGTAKE 1 TABLET BY MOUTH DAILY; Duration: 90Active Social History Tobacco Use: Social History Observation Description Date Details (start date - stop date) Never Smoker NA - NA Tobacco Use/Smoking Question Answer Notes Patient is a nonsmoker Alcohol Screen (Audit-C) Question Answer Notes Did you have a drink containing alcohol in the p ast year? Yes How often did you have 6 or more drinks on one occasion in the past year?Never (0 point)How many drinks did you have on a typical day when you were drinking in the past year?1 or 2 drinks (0 point)How often did you have a drink containing alcohol in the past year?Weekly (3 points)Ppwfql3ZcyhhjdohcybgoMbtbhsilCPOUC-C (Standard) Question Answer Notes Did you have a drink containing alcohol in the p ast year? Yes How often did you have six or more drinks on one occasion in the past year?Never (0 point)How many drinks did you have on a typical day when you were drinking in the past year?1 or 2 drinks (0 point)How often did you have a drink containing alcohol in the past year?2 to 4 times a month (2 points)Fqiajg0Dcvjzkisomqpox Negative Problems Problem Type SNOMED Code ICD Code Onset Dates Problem Status W/U Status Risk Notes Problem Deviated nasal septum (009636874) Deviate d nasal septum (J34.2) ActiveconfirmedProblemGastroesophageal reflux disease (215007653)GERD (gastroesophageal reflux disease) (K21.9)ActiveconfirmedProblemAllergic rhinitis (25647971)Allergic rhinitis (J30.9)ActiveconfirmedProblemWell adult (706595986) Well adult (Z00.00)ActiveconfirmedProblemDysphagia (97458367)Dysphagia (R13.10) ActiveconfirmedProblemShingles (6278694)Shingles (B02.9)ActiveconfirmedProblem Gastroenteritis (10439630)Gastroenteritis (K52.9)ActiveconfirmedProblem Overweight (943603745)Over weight (E66.3)ActiveconfirmedProblemHistoplasmosis (10629218)Histoplasmosis (B39.9)ActiveconfirmedProblemPure hypercholesterolemia (487314713)Pure hypercholesterolemia, unspecified (E78.00)ActiveconfirmedProblem 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)Activeconfirmed Vital Signs Blood pressure diastolic 60 mm Hg 01/11/2025 Tjcdmb71 in01/11/2025lood pressure lwutcygw573 mm Hg01/11/20250471Zgkzqw940.6 lbs 01/11/2025BMI25.61 kg/m201/11/2025 Encounters Encounter Location Date Provider Diagnosis [facility] [address] [place] [address] 01/11/2025 Rajendra Duval Well adult Z00.00 [facility] [address] [place] [address] 01/16/2024 Rajendra Duval Unspecified injury o f face, initial encounter S09.93XA [facility] [address] [facility] [place] [address] 02/01/2024 Rajendra Simin [facility] [facility] [place] [address] [facility] [facility] [place] [address]/20/2025Rajendra Duval Assessments Encounter Date Diagnosis (ICD Code) Assessment Notes Treatment Notes Treatment Clinical Notes Section Notes 01/11/2025 Well adult (ICD-10 - Z00.00) checkin gwellness labs01/16/2024Unspecified injury of face, initial encounter (ICD-10 - S09.93XA) Plan Of Treatment Pending Test Test Name Order Date MRI : Breast, Right 05/07/2023 CMP (COMPLETE METABOLIC PANEL) 3 CMP (COMPLETE METABOLIC PANEL) 4 HEMOGLOBIN A1C (GLYCO) 01/11/2025 HEMOGLOBIN A1C (GLYCO) 01/20/2023 HEMOGLOBIN A1C (GLYCO) 11/07/2023 IRON, TOTAL 01/11/2025 IRON, TOTAL 11/07/2023 IRON, TOTAL 01/20/2023 LIPID PANEL (CHOL/TRIG/HDL/LDL) 11/07/19 24 LIPID PANEL (CHOL/TRIG/HDL/LDL) 01/12/20 25 LIPID PANEL (CHOL/TRIG/HDL/LDL) 01/21/20 23 CBC WITH DIFF 01/20/2023 CBC WITH DIFF 11/07/2023 VITAMIN D, 25 LEVEL (TOTAL) 01/20/2023 MRI Breast Bilateral w/wo contrast * US Breast Bilateral 11/18/2023 US Biopsy Breast Additional Right 2022 MAMM DIAG BILAT JOHNSON 3D GLOBAL* 10/26/19 24 LIPID PROFILE 01/20/2023 LIVER PROFILE 01/20/2023 MG MAMM DX 3D RT CAD 03/17/2023 MG MAMM DX 3D RT CAD 11/25/2023 MG MAMM SCREEN DENISE W CAD 12/15/2023 MG MAMM SCREEN DENISE W CAD 12/29/2022 US BREAST RIGHT LIMITED 03/17/2023 THYROID PANEL (T4/TSH/FREE T3) 3 THYROID PANEL (T4/TSH/FREE T3) 4 THYROID PANEL (T4/TSH/FREE T3) 5 Holter Monitor - 3 days up to 14 days MRI BREAST BILATERAL W WO CONTRAST 10/25 US BREAST COMPLETE RIGHT 11/25/2023 XR NASAL BONE (MIN 3 VIEWS ) 01/16/2024 CMP (COMP MET STAPLES) w/eGFR CKD-EPI 2024 CBC WITH DIFF 01/11/2025 Insurance Providers Payer Name Payer Address Payer Phone Subscriber Number Group Number Insured Name Patient Relationship to Insured Coverage Start Date Coverage End Date [employer] PPO PLUS LOCAL PLAN [address] [place] [address] [id number] Cristhian Tayelf - patient is the insured Medical (General) History Medical History History ICD Code Well adult Z00.00 Histoplasmosis B39.9 Deviated nasal septum J34.2 GERD (gastroesophageal reflux disease) K 21.9 Laryngeal pachydermia J38.7 Allergic rhinitis J30.9 Dysphagia R13.10 Gastroenteritis K52.9 Over weight E66.3 Surgical History Surgery Date(Month/Year) D&C 09/02 right foot tarsal and plantar fascia jana mahin tonsilsLeft Hip Replacement scope priorC-section07/2022
--- OUTSIDE RECORDS SUMMARY | 2025-01-11 09:17 | XMS_ITS | Patient Health Record ---
Author Organization [facility] Address [address] [place] [address] Care Team Providers Care Site Project Manager Name Role Phone Ravi Reddy Unavailable [phone] Allergies Allergen (clinical drug ingredient) Drug/Non Drug Allergy documented on EMR Reaction Allergy Type Onset Date Status CEPHALOSPORINSrashDrug AllergyActivePENICILLIN Grash, hivesDrug AllergyActive Surgical GluehivesDrug AllergyActive Reason For Referral No Information Medications Medication SIG (Take, Route, Frequency, Duration) Notes Start Date End Date Status Mobic 15 mg 1 tab(s) orally once a day for 4 5 day(s) 3ActiveTrokendi XRActivemultivitaminActiveAleveprnActive Social History Tobacco Use: Social History Observation Description Date Details (start date - stop date) Never Smoker NA - NA Smoking History Question Answer Notes Smoking Status NonSmoker Problems Problem Type SNOMED Code ICD Code Onset Dates Problem Status W/U Status Risk Notes Problem Radial styloid tenos ynovitis (51879802) De Quervain's tenosynovitis, right (M65.4) FeqjfjvauybumzdCecufxq598871939Bmozvrexz following joint replacement surgery (Z47.1)WzbppyubbvfqmwgEezqhbi2905023174313170Izme of right thumb (M79.644)Active jlpdwpgmhLtkixis829782417Ueziiiwk of left artificial hip joint (Z96.642)Active swgxgyjxrQfpirhq811995474Ljrcsdsngdc of leg (S84.90XA)Activeconfirmed Plan Of Treatment No Information Insurance Providers Payer Name Payer Address Payer Phone Subscriber Number Group Number Insured Name Patient Relationship to Insured Coverage Start Date Coverage End Date [place] [address] [place] [address] [id number] FEDERICO TAY Self - patient is the insured Medical (General) History Medical History History ICD Code Drug Allergies: Yes 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
--- OUTSIDE RECORDS SUMMARY | 2025-01-11 09:22 | XMS_ITS | CCD ---
Author Organization [facility] CliniSymd Care Team Providers Care Athlete Marketing Agent Name Role Phone Jeyson Duval Unavailable CHEMA, VINCENT S Unavailable Unavailable HOY, JEYSON M Unavailable Unavailable ADILSON WOOD Unavailable Unavailable SIMIN JEYSON Unavailable Unavailable CHEMA VINCENT S. Unavailable Unavailable Simin Jeyson M Primary Care Provider DR JEYSON DUVAL Attending Unavailable DR JEYSON DUVAL Primary Care Unavailable DR JEYSON DUVAL Admitting Unavailable Jeyson Duval MD Primary Care Provider [phone] Jeyson Duval MD Primary Care Provider JEYSON DUVAL Referring Unavailable HOY, JEYSON M Primary Care Unavailable HOY, JEYSON M Referring Unavailable HOY, JEYSON M Primary Care Unavailable HOY, JEYSON M Referring Unavailable HOY, JEYSON M Primary Care Unavailable HOY, JEYSON M Referring Unavailable HOY, JEYSON M Primary Care Unavailable HOY, JEYSON M Referring Unavailable SIMIN, JEYSON M Primary Care Unavailable Jeyson Duval MD Primary Care Provider [phone] JEYSON DUVAL Attending Unavailable JEYSON DUVAL Primary Care Unavailable AYUSH VALLADARES Referring Unavailable Doreen Thompson Attending Jeyson Avila MD Primary Care UnavailJeyson Rider MD Primary Care Unavaila ble Trista ALEJANDRO, Doreen Medrano Attending Cathleen Jeyson Quach MD Primary Care Unavaila ble Trista ALEJANDRO, Doreen Medrano Attending Cathleen vaJEYSON Medina Primary Care Unavailable SYSTEM, PROVIDER NOT IN Attending Unavaila ble SYSTEM, PROVIDER NOT IN Referring Unavaila ble SYSTEM, PROVIDER NOT IN Attending Unavaila ble HOY, JEYSON Primary Care Unavailable SYSTEM, PROVIDER NOT IN Referring Unavaila ble SYSTEM, PROVIDER NOT IN Attending Unavaila ble HOY, JEYSON Primary Care Unavailable SYSTEM, PROVIDER NOT IN Referring Unavaila ble HOY, JEYSON Primary Care Unavailable SYSTEM, PROVIDER NOT IN Referring Unavaila ble SYSTEM, PROVIDER NOT IN Attending Unavaila ble HOY, JEYSON Primary Care Unavailable BENNY, AYUSH Referring Unavailable FOSTER, AYUSH Attending Unavailable HOY, JEYSON Primary Care Unavailable FOSTER, AYUSH Attending Unavailable FOSTER, AYUSH Attending Unavailable HOY, JEYSON Primary Care Unavailable HOY, JEYSON Primary Care Unavailable FOSTER, AYUSH Attending Unavailable Allergies Allergy ClassificationReported Allergen(s)Allergy TypeDate of OnsetReaction(s) FacilityCephalosporins (antibiotic) (3 sources)Cephalosporins (Antibiotic)Drug Ipiyhnu83-75-0565FcgwHzofx Health Penicillins (antibiotic) (3 sources)PenicillinsDrug Vhumlhz13-47-8966RcecWwauu Health (9 sources)Cephalosporins (Antibiotic); Translations: [CEPHALOSPORINS]Propensity to adverse reactions to talq29-49-9146OujmZfqdFxlfko Work Phone: (7 sources)Penicillins; Translations: [PENICILLINS]Propensity to adverse reactions to fqut22-49-8738EktsUzyhTonfjw Work Phone: (13 sources)OTHER; Translations: [OTHER]Propensity to adverse reactions 22-78-7190Nkhpw, ItchingNhioGreen Cross Hospital Work Phone: (4 sources)Cephalosporins (Antibiotic)Propensity to adverse reactions to drug 14-77-5397[place]vzqL[place] (4 sources)PenicillinsPropensity to adverse reactions to ifrm02-83-1351ZfxyZryojLake [place], [place] (2 sources)PenicillinsPropensity to adverse reactions to kzhc30-42-5864GsijJOGLake [facility] (1 source)Cephalosporins (Antibiotic)Propensity to adverse reactions to drug 66-51-4001YycmJmsuLevpic (1 source)surgical glue; Translations: [surgical glue]Propensity to adverse reactions to drug (disorder)[facility] (2 sources)PenicillinsPropensity to adverse reactions to douc96-03-1457Jtue [facility] (1 source)Cephalosporins (Antibiotic)Propensity to adverse reactions to drug 59-34-8548XryaHsfvJtspbsBVYFWHI: Highlighted row has been ruled out!Unclassified (4 sources)OtherPropensity to adverse gzwwsusvk90-49-1884Brgcd, ItchingMercy Health Medications Current Medications MedicationDrug Class(es)DatesSig (Normalized)Sig (Original)ascorbic acid 500 mg oral tablet (3 sources)Vitamin CStart: 36-93-6239snkohjdr acid, vitamin C, (VITAMIN C) 500 MG tablet Take by mouth . 11/04/2006 Activeclindamycin 150 mg oral capsule (8 sources)Lincosamide Antibacterialclindamycin (CLEOCIN) 150 MG capsule Take 300 mg by mouth daily as needed Take 300mg one hour before procedure and 300mg six hours after procedure. 0 Activeesomeprazole 40 mg granules for oral suspension (8 sources)Proton Pump Inhibitortake 40 mg by mouth once dailyesomeprazole Magnesium (NEXIUM) 40 MG PACK Take 40 mg by mouth daily 0 ActiveEthinyl Estradiol / Ferrous fumarate / Norethindrone (8 sources)Estrogentake 1 tablet by mouth once daily, then take 0.05-1 tablets by mouth oncenorethindrone-ethinyl estradiol (JUNEL FE 04/02) 1-20 MG-MCG per tablet Take 1 tablet by mouth daily0 Activeethinyl estradiol / norethindrone (4 sources)Progestin, Estrogentake 1 tablet by mouth once daily, then take 0.05- 21 tablets by mouth oncenorethindrone-ethinyl estradiol (MICROGESTIN 04/02, ,) 1-20 mg-mcg per tablet Take 1 tablet by mouth daily. Activefluticasone propionate 0.05 mg/actuat metered dose nasal spray (4 sources)Corticosteroidtake 1 spray(s) nasal route once dailyfluticasone (FLONASE) 50 mcg/actuation nasal spray Instill 1 spray into each nostril daily. Activelevothyroxine sodium 0.05 mg oral tablet (3 sources)l-Thyroxinelevothyroxine (SYNTHROID, LEVOTHROID) 50 MCG tablet every night at bedtime . ActiveMultiple Vitamins-Minerals (HAIR SKIN AND NAILS FORMULA PO) (8 sources)Multiple Vitamins-Minerals (HAIR SKIN AND NAILS FORMULA PO) Take by mouth 0 ActiveMultiple Vitamins-Minerals (MULTIVITAMIN & MINERAL PO) (8 sources)Start: 51-15-3377Gdwwxisg Vitamins-Minerals (MULTIVITAMIN & MINERAL PO) Take by mouth 0 11/04/2006 Activemultivitamin (THERAGRAN) per tablet (3 sources)Start: 46-79-8151qydwdbopbmxo (THERAGRAN) per tablet 1 (one) tablet . 04/10/2002 Activenaproxen sodium 220 mg oral capsule (12 sources)Nonsteroidal Anti-inflammatory Drugtake 1 capsule by mouth every twelve hours as needednaproxen sodium (ALEVE) 220 mg cap Take 1 tablet by mouth every 12 (twelve) hours as needed. ActiveNaproxen Sodium (ALEVE) 220 MG CAPS Take by mouth as needed for Pain 0 Activeomeprazole 40 mg delayed release oral capsule (4 sources)Proton Pump Inhibitortake 1 capsule by mouth once dailyomeprazole (PRILOSEC) 40 MG capsule Take 40 mg by mouth daily. Activeondansetron 4 mg oral tablet (12 sources)Serotonin-3 Receptor Antagonisttake 1 tablet by mouth every eight hours as needed for nauseaondansetron (ZOFRAN) 4 MG tablet Take 1 (one) tablet (4 mg total) by mouth every 8 (eight) hours asneeded for nausea . Active Probiotic Product (PROBIOTIC PO) (8 sources)take 1 tablet by mouth once daily as neededProbiotic Product (PROBIOTIC PO) Take 1 tablet by mouth daily as needed 0 ActiveraNITIdine 150 mg oral tablet (8 sources)Histamine-2 Receptor Antagonisttake 1 tablet by mouth once daily ranitidine (ZANTAC) 150 MG tablet Take 150 mg by mouth nightly 0 Active therapeutic multivitamin (THERAGRAN) tablet (4 sources)take 1 tablet by mouth once dailytherapeutic multivitamin (THERAGRAN) tablet Take 1 tablet by mouth daily. Active Problems Active Problems Problem ClassificationProblemDateDocumented DateEpisodic/ChronicHeadache; including migraine (1 source)Refractory migraine; Translations: [Intractable migraine without status migrainosus, unspecified migraine type]ChronicMycoses (1 source)Histoplasmosis; Translations: [Histoplasmosis]EpisodicNonmalignant breast conditions (1 source)Heterogeneously dense breast composition; Translations: [Heterogeneously dense tissue of both breasts on mammography]38-89-2622Bqmrfxft Other connective tissue disease (1 source)Pain in left foot; Translations: [Pain in left foot]EpisodicOther upper respiratory disease (6 sources)Chronic rhinitis; Translations: [Chronic rhinitis]Onset: 03-21-2017 37-82-1720PitpctiVvuvdwoc codes; unclassified (4 sources)At high risk for breast cancer; Translations: [Other specified personal risk factors, not elsewhereclassified]37-63-5409IqepiorgAyyuylsn codes; unclassified (3 sources)Family history of breast cancer; Translations: [Family history of malignant neoplasm of breast]22-13-4621HlnjqbdsOtxqvwdazkfi (3 sources)Patient encounter qksdei70-73-0016Vxcgnohqvwye (2 sources)Mammographic heterogeneous density, bilateral breasts; Translations: [Mammographic heterogeneous density, bilateral breasts]Onset: 01-19-2024 Past or Other Problems Problem ClassificationProblemDateDocumented DateEpisodic/ChronicOther circulatory disease (3 sources)Finding of sensation of pharynx; Translations: [Other specified symptoms and signs involving the circulatory and respiratory systems]Onset: [id number] gastrointestinal disorders (1 source)Dysphagia, oropharyngeal phase; Translations: [Dysphagia, oropharyngeal phase]Onset: 94-02-0727KdryrpvpYjxuq screening for suspected conditions (not mental disorders or infectious disease) (17 sources)Patient encounter status; Translations: [Encounter for screening mammogram for malignant neoplasm of breast]Onset: 75-53-6420PormvsrkMtfuw upper respiratory infections (2 sources)Postnasal drip; Translations: [Postnasal drip]Onset: 03-21-2017 EpisodicResidual codes; unclassified (3 sources)Family history of malignant neoplasm of breast; Translations: [Family history of malignant neoplasmof breast]Onset: 94-82-1363OmsagpqlGlvtczan codes; unclassified (4 sources)Other specified personal risk factors, not elsewhere classified; Translations: [Other specified personal risk factors, not elsewhere classified] Onset: 85-92-2566DtrstozvVotdudxbzetb (3 sources)Other general symptoms and signs; Translations: [Throat fullness] Onset: 434571-01-7956TdvummalXwfhhqvtwceh (2 sources)Mammographic heterogeneous density, bilateral breasts; Translations: [Mammographic heterogeneous density, bilateral breasts]Onset: 01-19-2024 Results Test NameValueInterpretationReference RangeFacilityMR BREAST BILATERAL WITH AND WITHOUT CONTRASTon [id number] BREAST BILATERAL WITH AND WITHOUT CONTRAST EXAMINATION: MRI OF THE BILATERAL BREASTS WITHOUT AND WITH CONTRAST 09/11/2024 TECHNIQUE: Multiplanar, multisequence MRI of the bilateral breasts were performed without and with the administration of intravenous contrast. Talkbits software was used to evaluate dynamic post contrast enhancement. COMPARISON: Mammography dated 03/20/2024. HISTORY: At high risk for breast cancer, supplemental screening for breast cancer, dense breast tissue. FINDINGS: The breasts are heterogeneously dense. Minimal background parenchymal enhancement is noted. Right breast: No abnormal pattern of enhancement is seen. No worrisome lymphadenopathy is seen. Left breast: No abnormal pattern of enhancement is seen. No worrisome lymphadenopathy is noted. IMPRESSION: Negative pre- and postcontrast enhanced MRI of the breasts. BIRADS: BIRADS - CATEGORY 1 Negative, no evidence of malignancy. Normal interval follow-up is recommended. Bilateral screening mammography March of 2025. OVERALL ASSESSMENT - NEGATIVE [facility] Workstation ID: [id number] Dictated by: TESS BAKER on TueSep 11, 2024 8:21:09 AM EDT Transcribed by: MICKEY FAY on TueSep 11, 2024 8:31:34 AM EDT Finalized by: TESS BAKER on TueSep 11, 2024 9:09:28 AM EDTPhoebe Putney Memorial Hospital - North CampusComment on above:Order Comment: Injury/Trauma or Illness?:Illness/Other At high risk for breast cancer, supplemental screening for breast cancer, dense breast tissue How long have you had these symptoms (acute/chronic)?:Acute Reason for exam?:At high risk for breast cancer, supplemental screening for breast cancer, dense breast tissue Type of Exam?:Initial Additional signs and symptoms?:At high risk for breast cancer, supplemental screening for breast cancer, dense breast tissueGyn Cytology Reporton 04-16-2024 [facility] Cytology ReportClinical Information Specimen Collection Date: 04/12/24 LMP: 03/18/24 Type of specimen: Cervical/endocervical Purpose of smear: Regular periodic exam/screening Pap HPV testing ordered only if ASCUS Pap. GY Specimen A Liquid Prep Pap Smear, Reflex if ASCUS Adequacy Alpha Response SAT ANATOMICPATHOLOGY Endocervical Alpha Response EC/TZONE - ANATOMICPATHOLOGY Statement of Adequacy Satisfactory for Evaluation. Transformation Zone Absent. Diagnosis Alpha Response GY NILM ANATOMICPATHOLOGY Diagnosis NEGATIVE FOR INTRAEPITHELIAL LESION OR MALIGNANCY. Completed by: CAN Schmitt (ASCP) (Electronically signed by) 04/16/24 10:43 EST GY Disclaimer Interp The PAP smear is a screening test with an inherent, but low, probability of error. A negative report indicates a low probability of significant cervical pathology. Your patient should be reminded to consult you immediately if she experiences new symptoms and to continue having regular PAP smears inthe future. GY Disclaimer Alpha Commiss[facility] Steward Disclaimer ANATOMICPATHOLOGYNoSouthview Medical CenterComment on above:Performed By: #### GYNCYTREP #### [facility] (DEFAULT) [address], [place] [address]Imaawijvow Office/Clinic Noteon 90-21-6840Nkvivomovb Office/Clinic NoteChief Complaint 38 y/o presents for annual visit. Last pap 01/05/22-negative. History of Present Illness Pelvic Pain: No Painful Sex: No Abnormal Vaginal Discharge: No Abnormal Vaginal Bleeding: No Vaginal Dryness: No Vaginal Itch: No Vaginal Burning: No Vaginal Odor: No Hot Flashes: No Night Sweats: No Breast Lump: No Breast Pain: No Sexually Active: Yes Patricia presents for annual. Menses regular. Not problematic. Denies breast or pelvic concerns. Doessee a breast specialist in [place], [place] Ayush PEPPER. She has had several mammograms in [facility] d/t dense breast tissue, maternal grandmother w/ hx of breast cancer. Usually obtains imaging in [place]. Says last mammogram was a few weeks ago. Patricia may be interested in genetic testing in future. PCP is Dr. Duval in [place], [place]. is considering vasectomy. Has a 2 yo son at home. Hx of left hip replacement (has pain w/ pelvic exams d/t stirrups). 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 [employer]SMISSION [employer] Additional Details Menstrual History Last Menstrual Anlnve3403/23/2024 Age Menses Sfmcais12 Periods RegularNo Days Between Uamcvzb88 Menstrual Flow Days7 Pass ClotsNo Pain With PeriodYes Flow Start PainNo Pain Starts Days Before Period2 Periods AreBleeding through protection Miss School/Work Due to PeriodsNo Contraception Contraception TypeWithdrawal Review of Systems Head Migraines: No Headaches: No Eyes Corrective Lenses: Glasses Blurred vision: Glasses Ears, Nose, Throat Congestion: No Vertigo: No Sore throat: No Nasal drainage: No Cardio Respiratory Peripheral edema: No Heart Irregularity: No Chest Pain: No Shortness of Breath: No Gastrointestinal Bloating: No Reflux/heartburn: No Abdominal Pain: No Change in bowel habits: No Urinary Urinary Incontinence: No Urinary frequency: No Nocturia: No Urgency: No Painful urination: No Musculoskeletal Back Pain: No Muscle Aches: No Joint Pain: No Integumentary Lesions: No Moles: No Acne: No Hair changes: No PsychoSocial Sleep Problems: No Anxiety: No Suicidal Ideation: No Homicidal Ideation: No Depression: No Hematologic/Lymphatic Lymphadenopathy: No Thromboembolism: No Bruising: No Bleeding tendencies: No Endocrine Abnormal weight gain: No Abnormal weight loss: No Fatigue: No Additional Details Pain Present Pain present: No actual or suspected pain Physical Exam Vitals & Measurements BP: 122/70 HT: 165 cm WT: 59.0 kg (Dosing) WT: 59.0 kg BMI: 21.67 General: Alert and oriented, well nourished, no acute distress. Neck: Supple, non-tender, no carotid bruits, no JVD, no lymphadenopathy. Lungs: Clear to auscultation, non-labored respiration. Heart: Normal rate, regular rhythm, no murmur, gallop or edema. Abdomen: Soft, non-tender, non-distended, no masses. Musculoskeletal: Normal range of motion and strength, no tenderness or swelling. Skin: Skin is warm, dry and pink, no rashes or lesions. Neurologic: Awake, alert, and oriented X3, CN II-XII intact. Psychiatric: Cooperative, appropriate mood and affect. Breast exam: No fibrocystic changes noted bilaterally, no masses, tenderness, skin changes or nipple discharge. External Genitalia: Normal urethral meatus, no lesions, vulvar skin intact. Genitourinary: Normal vaginal mucosa, no lesions or abnormal discharge, cervix intact without lesions or bleeding. No cystocele or rectocele. Bimanual exam: Normal sized, non-tender, mobile uterus. No adnexal tenderness or masses Assessment/Plan 1. Women's annual routine gynecological examination Pap collected today. Will call w/ any abnormal results. Refills on Diflucan and Zofran sent for PRN use during cycles. Orders: fluconazole, 1 tabs, Oral, Once, take 1 tab now may repeat in 72 hrs, # 2 tabs, 3 Refill(s), Pharmacy: [facility]/pharmacy #[id number] ondansetron, 1 tabs, Oral, q8hr, PRN, # 30 tabs, 2 Refill(s), Pharmacy: [facility]/pharmacy #[id number] Time Spent with the Patient I have personally spent [25] minutes on this date, directly related to today's patient visit, including pre and post visit work, for this date of service. Time listed does not include time spent on separately billable services. OB History History (1,0,2,1) # 1 Baby 1 Outcome Date: 12/12/2009 Outcome or Result: Therapeutic , medical Gest Age: 6 weeks Outcome: Demise Sex: -- Comment: elective # 2 Baby 1 Outcome Date: 09/08/2021 Outcome or Result: Spontaneous with D and C Gest Age: 6 weeks Outcome: Demise Sex: -- # 3 Baby 1 Outcome Date: 07/18/2022 Outcome or Result: , low transverse Gest Age: 39 weeks 6 days Outcome: Live Sex: Male Wt: 3370 g Maternal Complications: High risk Complications: section Complications: None Women's Health Screening Last Pap Smear Diagno (more content not included)...[facility] HospitalMM SCREENING KENNY BILATERALon 39-65-1086BI SCREENING KENNY BILATERALEXAMINATION: MM SCREENING KENNY BILATERAL HISTORY: ORDERING SYSTEM PROVIDED HISTORY: Annual screening mammogram. ORDERING SYSTEM PROVIDED DIAGNOSIS CODES: Z12.31 Screening mammogram, encounter for. COMPARISON: Mammograms dating back to 10/27/2020. TECHNIQUE: Bilateral 2D and 3D mammographic views. Computer-aided detection was utilized in the interpretation of this exam. FINDINGS: The breasts are heterogeneously dense, which may obscure small masses. Parenchymal asymmetries are stable. No developing asymmetry, dominant mass or suspicious microcalcifications. There are no suspicious findings. IMPRESSION: No mammographic evidence for malignancy. BIRADS: BIRADS - CATEGORY 2 Benign, no evidence of malignancy. Normal interval followup is recommended in 12 months. OVERALL ASSESSMENT - BENIGN A letter of notification will be sent to the patient regarding the results. [facility], along with the National [employer] Cancer Network and the [employer] recommend annual screening mammograms for women age 40 and older. [employer] Workstation ID: [id number] Dictated by: EMILY GOODMAN on TueMar 20, 2024 10:41:14 AM EST Transcribed by: ROB HOLLINGSWORTH on TueMar 20, 2024 11:02:01 AM EST Finalized by: EMILY GOODMAN on TueMar 20, 2024 9:34:06 PM [facility] KENNY DIGITAL DIAGNOSTIC UNILATERAL RIGHTon [id number] KENNY DIGITAL DIAGNOSTIC UNILATERAL RIGHTEXAMINATION: DIAGNOSTIC DIGITAL RIGHT BREAST MAMMOGRAM WITH TOMOSYNTHESIS, [...] to the patient regarding the results. The [employer] recommends annual mammograms for women 40 years and older. Performing Facility: [place] [address] Interpreted by: Tara Brooks MD Signed by: Tara Brooks MD 11/25/23 Final resultNormalMercy Health [facility]ard Hospital BREAST BILATERAL W WO CONTRASTon [id number] BREAST BILATERAL W WO CONTRASTEXAMINATION: MRI OF THE BILATERAL BREASTS WITHOUT AND [...] Signed by: Tara Brooks MD 07/05/23 Final resultNormalMerSilver Hill Hospital KENNY DIGITAL DIAGNOSTIC UNILATERAL RIGHTon [id number] KENNY DIGITAL DIAGNOSTIC UNILATERAL RIGHTEXAMINATION: DIAGNOSTIC DIGITAL RIGHT BREAST MAMMOGRAM WITH TOMOSYNTHESIS; [...] Signed by: Johnie Lozano DO 05/06/23 Final resultNormalMercy Lawrence+Memorial Hospital BREAST LIMITED RIGHTon [id number] BREAST LIMITED RIGHTEXAMINATION: DIAGNOSTIC DIGITAL RIGHT BREAST MAMMOGRAM WITH TOMOSYNTHESIS; [...] Signed by: Johnie Lozano DO 05/06/23 Final resultNormalMercy Lawrence+Memorial Hospital Breast - right limitedOrdered By: Johnie Lozano on [id number] and review of laboratory results AbnormalSPOTSYLVANIA REGIONAL [facility] SKINNYprice Work Phone: [facility] [employer] Work Phone: US Breast - right limitedon [id number] persists with spot compression likely summation with no ultrasound correlate. Recommend six-month mammogram follow-up. BIRADS: BIRADS - CATEGORY 3 Probably Benign Findings. A short interval follow-up is recommended in 6 months. OVERALL ASSESSMENT - PROBABLY BENIGN. A letter of notification will be sent to the patient regarding the results.[facility] CONSOLIDATEDEXAMINATION: DIAGNOSTIC DIGITAL RIGHT BREAST MAMMOGRAM WITH TOMOSYNTHESIS; [...] and demonstrates no solid or cystic mass. [facility] CONSOLIDATEDRadiology Study observation (narrative)[facility] KENNY DIGITAL SCREEN BILATERALon [id number] KENNY DIGITAL SCREEN BILATERALEXAMINATION: SCREENING DIGITAL BILATERAL MAMMOGRAM WITH TOMOSYNTHESIS, 03/01/2023 [...] Signed by: Danielle Collins MD 03/01/23 Final resultNormParkview Health KENNY DIGITAL SCREEN BILATERALOrdered By: Jeyson Duval on [id number] mammographic evidence of malignancy. Given that the patient's lifetime risk for breast cancer isgreater than 20%, recommend supplemental screening with annual breast MRI. BIRADS: BIRADS - CATEGORY 1 Negative, no evidence of malignancy. Normal interval follow-up is recommended in 12 months. OVERALL ASSESSMENT - NEGATIVE A letter of notification will be sent to the patient regarding the results. The [employer] recommends annual mammograms for women 40 years and older.[employer] Phone: eXAMINATION: SCREENING DIGITAL BILATERAL MAMMOGRAM WITH TOMOSYNTHESIS 10/27/2020 [...] area of architectural distortion. Lifetime risk for b reast cancer of 20.4% per the [employer] model.[employer] Phone: [employer] Phone: XR FOOT LEFT (MIN 3 VIEWS)Ordered By: Jeyson Duval on [id number] acute osseous or soft tissue abnormality.[employer] Phone: eXAMINATION: THREE XRAY VIEWS OF THE LEFT FOOT 08/28/2020 7:50 am COMPARISON: None. HISTORY: ORDERING SYSTEM PROVIDED HISTORY: Left foot pain FINDINGS: There is no acute osseous abnormality. The jointspaces are maintained. The surrounding soft tissues are unremarkable.[employer] Phone: edi, [facility] Incoming Radiant Results From [employer] - 08/28/2020 8:36 AM EDT EXAMINATION: THREE XRAY VIEWS OF THE LEFT FOOT 08/28/2020 7:50 am COMPARISON: None. HISTORY: ORDERING SYSTEM PROVIDED HISTORY: Left foot pain FINDINGS: There is no acute osseous abnormality. The joint spaces are maintained. The surrounding soft tissues are unremarkable. IMPRESSION: No acute osseous or soft tissue abnormality. [employer] Phone: [facility] CenterElevate Digital Phone: cBC Auto Differentialon [id number] (Bld) [#/Vol]10*3/[facility] [place], [place]Basophils/100 WBC (Bld)1 %0 - 2 %[facility], KYDifferential TypeNOT REPORTEDUniversity [facility]als [facility], KYEosinophils (Bld) [#/Vol]0.10 10*3/[facility] [place], KYEosinophils/100 WBC (Bld)2 %1 - 4 %[facility] [place], KYErythrocyte distribution width (RBC) [Ratio]11.8 %11.8 - 14.4 % [facility], KYHematocrit (Bld) [Volume fraction]41.4 %36.3 - 47.1 %[facility], KYHemoglobin (Bld) [Mass/Vol]13.4 g/dL11.9 - 15.1 g/dLUniversity Hospitals Parma Medical [place], KYImmature granulocytes (Bld) [#/Vol]10*3/[facility]- [place], [place]Immature granulocytes (Bld) [#/Vol]0 %0[facility]- [place], KYLymphocytes (Bld) [#/Vol]1.40 10*3/[facility]- [place], KYLymphocytes/100 WBC (Bld)32 %24 - 43 %[facility]- [place], KYMCH (RBC) [Entitic mass]30.6 pg25.2 - 33.5 pgProvidence Hospital- [place], KYMCHC (RBC) [Mass/Vol]32.4 g/dL28.4 - 34.8 g/dLProvidence Hospital- [place], KYMCV (RBC) [Entitic vol]94.5 fL82.6 - 102.9 fLProvidence Hospital- [place], KYMonocytes (Bld) [#/Vol]0.37 10*3/uLProvidence Hospital- [place], KYMonocytes/100 WBC (Bld)8 %3 - 12 %[facility]- [place], KYPlatelet mean volume (Bld) [Entitic vol]9.6 fL8.1 - 13.5 fLProvidence Hospital- [place], KYPlatelets (Bld) [#/Vol]213 10*3/uLProv[facility] Hospital- [place], KYPlatelets (Bld) [#/Vol] NOT REPORTEDProvidence Hospital- [place], KYRBC (Bld) [#/Vol]4.38 10*6/uL3.95 - 5.11 m/uL [facility], OKRBC morphology finding Nom (Bld)NOT REPORTEDUniversity [facility]als [facility], JARRODSegmented neutrophils/100 WBC (Bld)57 %36 - 65 %[facility]- [place], JARRODSegs Absolute2.52[facility]- [place], KYWBC (Bld) [#/Vol]0.0 10*3/uL0.0 per 100 WBCProvidence Hospital- [place], KYWBC (Bld) [#/Vol]4.4 10*3/uLProvidence Hospital- [place], KYWBC MorphologyNOT REPORTEDProvidence Hospital- [place], KYComprehensive Metabolic Panelon 80-87-0727Bdojvfs [Mass/Vol]4.6 g/dL3.5 - 5.2 g/dLProvidence Hospital- [place], KYAlbumin/Globulin [Mass ratio]2.1 {ratio}[facility]- [place], KYALP [Catalytic activity/Vol]61 U/L35 - 104 U/LMSelect [facility]- [place], KYALT [Catalytic activity/Vol]12 U/L5 - 33 U/LMSelect [facility] [place]- [place], KYAnion gap [Moles/Vol]5 mmol/LLow9 - 17 mmol/LMercy Health- [place], KYAST [Catalytic activity/Vol]18 U/L<32[facility], KYBilirubin Ql (U)0.49 mg/dL 0.3 - 1.2 mg/dLUniversity [facility]als [facility], KYBun/Cre Srlcg21ZhlbZnaii Health- [place], [place] Calcium [Mass/Vol]9.2 mg/dL8.6 - 10.4 mg/dLUniversity [facility]als [facility], KYChloride [Moles/Vol]102 mmol/L98 - 107 mmol/LMBlanchard Valley Health System [place], KYCO2 [Moles/Vol]29 mmol/L 20 - 31 mmol/LMBlanchard Valley Health System [place], KYCreatinine [Mass/Vol]0.8 mg/dL0.5 - 0.9 mg/dL [facility], KYGFR >60>60 mL/minUniversity Hospitals Parma Medical Center, KYGFR Non->60>60 mL/minUniversity Hospitals Parma Medical Center, KYGlucose [Mass/Vol]85 mg/dL 70 - 99 mg/dLUniversity Hospitals Par[facility], KYInterpretation and review of laboratory results AbnormalUniversity Hospitals [facility], KYPotassium [Moles/Vol]4.4 mmol/L3.7 - 5.3 mmol/[facility] [place], KYProtein [Mass/Vol]6.8 g/dL6.4 - 8.3 g/dLUniversity Hospitals [facility], [place] Sodium [Moles/Vol]136 mmol/L135 - 144 mmol/[facility], KYUrea nitrogen [Mass/Vol]20 mg/dL6 - 20 mg/dLUniversity Hospitals [facility], KYHemoglobin A1Con 02-28-2020 Glucose [Mass/Vol]85 mg/dLUniversity Hospitals Par[facility], KYComment on above:The ADA and AACC recommend providing the estimated average glucose result to permit better patient understanding of their HBA1c result. HbA1c (Bld) [Mass fraction]4.6 %4 - 6 %[facility], KYIronon 14-33-8187Ueso [Mass/Vol]97 ug/dL37 - 145 ug/dLUniversity Hospitals Parma [facility], OKLipid Panelon 02-28-2020 Cholesterol [Mass/Vol]196 mg/dL<200[facility]- [place], KYComment on above: Cholesterol Guidelines: <200 Desirable 200-240 Borderline >240 Undesirable Cholesterol in HDL [Mass/Vol]65 mg/dL>40[place], KYComprom[facility] on above: HDL Guidelines: <40 Undesirable 40-59 Borderline >59 Desirable Cholesterol in LDL [Mass/Vol]117 mg/dL0 - 130 mg/dLGil[place], KYCompromedica [facility] on above: LDL Guidelines: <100 Desirable 100-129 Near to/above Desirable 130-159 Borderline >159 Undesirable Direct (measured) LDL and calculated LDL are not interchangeable tests. Cholesterol in VLDL [Mass/Vol]NOT REPORTED1 - 30 mg/dL[place], [place] Cholesterol.total/Cholesterol in HDL [Mass ratio]3 {ratio}<5[place] Triglyceride [Mass/Vol]69 mg/dL<150[place], KYCompromedica [facility] on above: Triglyceride Guidelines: <150 Desirable 150-199 Borderline 200-499 High >499 Very high Based on AHA Guidelines for fasting triglyceride, December 2011. Metabolic Panelon 92-43-0364DHL/1.73 sq M predicted among non-blacks MDRD (S/P/Bld) [Vol rate/Area][place], KYCompromedica [facility] on above:Average GFR for 30-39 years old: 107 mL/min/1.73sq m Chronic Kidney Disease: <60 mL/min/1.73sq m Kidney failure: <15 mL/min/1.73sq m eGFR calculated using average adult body mass. Additional eGFR calculator available at: http://www.[employer]/multiple_crcl_2011.htm Stage 1: Some kidney damage normal GFR Stage 2: Mild kidney damage GFR 60-89 Stage 3: Moderate kidney damage GFR 30-59 Stage 4: Severe kidney damage GFR 15-29 Stage 5: Severe kidney damage GFR <15 ESRD - chronic treatment by dialysis or transplant T3 uptake and FTIon 25-80-8392Dpjd Thyroxine Index2 ug/dL1.4 - 3.1 ug/dLGil[place], KYT4 [Mass/Vol]30.58 %22.5 - 37 %[place], KYT4, Total6.5 ug/dL4.5 - 10.9 ug/dLGil[place], KYTS without Reflexon 37-11-2871HNJ Qn 2.82 m[IU]/[facility], JARRODMRI BRAIN WO CONTRASTon 76-53-8362Vqkkxbyflrpg MRI of the brain without contrast. No findings to suggest etiology of headache. [facility], JARRODEXAMINATION: MRI OF THE BRAIN WITHOUT CONTRAST 02/27/2020 3:58 pm TECHNIQUE: Multiplanar multisequence MRI of the brain was performed without the administration of intravenous contrast. COMPARISON: None. HISTORY: ORDERING SYSTEM PROVIDED HISTORY: Intractable migraine without status migrainosus, unspecified migraine type TECHNOLOGIST PROVIDED HISTORY: Is the patient ?->No FINDINGS: INTRACRANIAL STRUCTURES/VENTRICLES: The brain parenchyma has normal signal and morphology. There is no acute infarct or mass. No mass effect or midline shift. No evidence of an acute intracranial hemorrhag e. The ventricles and sulci are normal in size and configuration. The sellar/suprasellar regions appear unremarkable. The normal signal voids within the major intracranial vessels appear maintained. ORBITS: Orbital structures are unremarkable. SINUSES: Minimal mucoperiosteal thickening in the alveolar recesses of the maxillary sinuses. No mastoid effusion. BONES/SOFT TISSUES: The bone marrow signal intensity appears normal. The soft tissues demonstrate no acute abnormality.[facility], JARRODTroyi, [facility] Incoming Radiant Results From [employer] - 02/27/2020 4:31 PM EST EXAMINATION: MRI OF THE BRAIN WITHOUT CONTRAST 02/27/2020 3:58 pm TECHNIQUE: Multiplanar multisequence MRI of the brain was performed without the administration of intravenous contrast. COMPARISON: None. HISTORY: ORDERING SYSTEM PROVIDED HISTORY: Intractable migraine without status migrainosus, unspecified migraine type TECHNOLOGIST PROVIDED HISTORY: Is the patient ?->No FINDINGS: INTRACRANIAL STRUCTURES/VENTRICLES: The brain parenchyma has normal signal and [...] No findings to suggest etiology of headache. [facility], KYXR CHEST (2 VW)on 88-89-3269Eo acute process.[facility], KYEXAMINATION: TWO XRAY VIEWS OF THE CHEST 02/27/2020 4:19 pm COMPARISON: None. HISTORY: ORDERING SYSTEM PROVIDED HISTORY: Histoplasmosis FINDINGS: The lungs are without acute focal process. There is no effusion or pneumothorax. The cardiomediastinal silhouette is without acute process. The osseous structures are without acute process.[facility], JARRODEdi, Mhpn Incoming Radiant Results From [employer] - 02/27/2020 4:32 PM EST EXAMINATION: TWO XRAY VIEWS OF THE CHEST 02/27/2020 4:19 pm COMPARISON: None. HISTORY: ORDERING SYSTEM PROVIDED HISTORY: Histoplasmosis FINDINGS: The lungs are without acute focal process. There is no effusion or pneumothorax. The cardiomediastinal silhouette is without acute process. The osseous structures are without acute process. IMPRESSION: No acute process. [facility], KYCT SOFT TISSUE NECK W CONTRASTon 08-94-8344LW SOFT TISSUE NECK W CONTRASTHISTORY: Sensation of something stuck in the throat, one year. Dysphagia. Oropharyngeal phase.COMPARISON: No comparison.TECHNIQUE: Helically acquired axial images of the soft tissues of the neck withcoronal and sagittal multiplanar reconstructions. IV contrast: Isovue-300, 75 mL. Dose reduction raad hniques were achieved by using: automated exposure control [...] cartilages are normal. The soft tissues are otherwisenormal. The parotid and submandibular glands are normal.There is mucosal thickening in the maxillary air cells without air-fluid level, left greater than right, measuring up to 1.3 cm in AP dimensionin the left maxillary sinus. The floor of the skull normal. The orbits are normal.The music adapter, parapharyngeal and carotid spaces are diffusely normal.The posterior cervical region is normal.No adenopathy. No opaque foreign body.IMPRESSION: Maxillary sinus mucosal thickening left greater than right.Otherwise negative CT scan soft tissue neck.Interpreted by:DAVE Saab Jr.igned by:Wilner Vega Jr., MD05/25/18Final result NormalMerBellevue Women's HospitalProgress Noteon [id number] IP Note OR TranscriptionNormalMercy [facility] Vital Signs Date TimeVital SignValuePerforming VlmfevxajKakkusnq45-49-7937 09:02-0400Body izqeij310.5 [email or web address] PA-[employer] Work Phone: [phone]tstqf18-84-1173 09:02-0400Body mass index (BMI) [Ratio]23.78 kg/p8UmpdqOpenAgent.com.au PA-C Work Phone: [phone]txjrj86-17-7785 09:02-0400Body edcfgk99.97 kg [employer] PA-C Work Phone: [phone]wpppk04-91-7300 09:01-0500Body uzmcqk230.8 cm [employer] PA-C Work Phone: [phone]nrgad87-68-2678 09:01-0500Body mass index (BMI) [Ratio]23.4 kg/e1NoymkOpenAgent.com.au PA-C Work Phone: [phone]vqqag63-75-6347 09:01-0500Body qyrmcw88.97 kg [employer] PA-[employer] Work Phone: [phone]cqbed22-65-4192 15:04-0500BP Eyieugwbk01 mm[Hg] [facility] Work Phone: [phone] 15:04-0500BP Eesjzubj819 mm[Hg][facility] Work Phone: [phone] 15:04-0500Pulse (Heart Rate)104 /minBexartolu [facility] Work Phone: 1([phone] 574-483901-08-2018 15:04-0500Respiratory Rate20 /minBexartolu [facility] Work Phone: [phone] 281-399301-08-2018 15:04-4433Fwhtli18.14 kgBexartolu [facility] Work Phone: Encounters Encounter DateEncounter TypeCare ProviderFacilityStart: 09-17-2024 End: 40-61-8758xumnbhjojaWEPXS [facility]ERPaul[facility] AmbulatoryStart: 09-17-2024 End: 68-95-8070Bwyfna outpatient visit [address] Valladares PA-C Work Phone: [facility] Cancer SurgeonsComment on above: At high risk for breast cancer (Primary Dx); Family history of breast cancer; Screening mammogram, encounter forStart: 09-11-2024 End: 97-65-0802Ckkjhz-up Kirt Valladares PA-C Work Phone: [facility] Cancer SurgeonsComment on above: MR Breast Bilateral With And Without ContrastStart: 09-11-2024 End: 25-42-5300rnllaikyfuFNTRNCNAcadian Medical Center CenterStart: 08-30-2024 ambulatoryF[facility]tert [facility] AmbulatoryStart: 08-28-2024 End: 28-73-1073terwiouzlhABKFPEBLifeBrite Community Hospital [facility] HospitalStart: 04-12-2024 End: 60-57-4410ieeflfhvafIrhjec Marcela Weston MEDIA PROMOTER-CNPFacility:[facility] HospitalStart: 03-20-2024 End: 03-07-9890vjpwukeesoHUIDICE HOYShelby HospitalStart: 01-19-2024 End: 80-53-0240Iympla outpatient new [address] Valladares PA-C Work Phone: [facility] Cancer SurgeonsComment on above: At high risk for breast cancer (Primary Dx); Family history of breast cancer; Breast cancer screening other than mammogram; Screening mammogram, encounter for; Heterogeneously dense tissue of both breasts on mammographyStart: 01-19-2024 End: 44-76-2405nsxteewqasASKIYUJ [facility] AmbulatoryStart: 11-25-2023 End: 84-43-3540cbxaerxgziLMSEJTK M HOYMercy Tiffin HospitalStart: 07-05-2023 End: 12-92-1827nmrxqsvzhgSVAZKUD M HOYMercy Tiffin HospitalStart: 05-06-2023 End: 71-92-4327Mdxajyjpvr hospital visit by physicianMary [facility] Ultrasound [facility] UltrasoundComment on above:Other abnormal and inconclusive findings on diagnostic imaging of breastStart: 05-06-2023 End: 88-16-6816apfesjdbvlFLZMQOFAbel Mcclain HospitalStart: 03-01-2023 End: 03-75-1711bihzbfnoifZABLKPV M HOYMercy Valles Mines HospitalStart: 10-27-2020 End: 12-51-6958Twfetrzjti hospital visit by physicianMary [facility] MammographyComment on above:Breast cancer screening by mammogramStart: 85-09-4228vhmyhbbszmQG DOUGLAS HOYFacility:H5Chvff: 08-28-2020 End: 81-41-6624Qllhkdouvr hospital visit by physicianMary [facility] Xr Room [address] [place] [address] RadiologyComment on above:Left foot painStart: 02-28-2020 End: 18-55-7556Ptycqnicmg hospital visit by Mali [facility] Start: 02-27-2020 End: 13-86-2875Dvsrstlfts hospital visit by physicianMary [facility] Xr Room [address] [place] [address] RadiologyComment on above:HistoplasmosisIntractable migraine without status migrainosus, unspecified migraine typeStart: 05-25-2017 End: 48-74-2211MmvcrrnwbtLNSXWQQPulaski Memorial Hospital HospitalStart: 03-21-2017 Office consultationAdilson Wood Work Phone: [facility] Physicians AllergyStart: 03-21-2017 End: 45-43-4383DeumlwdddpAWCXV [facility]. [facility] Phys[facility] Procedures DateProcedureProcedure DetailPerforming ClinicianStart: 34-49-8476Cy breast uni real time with image limitedJeyson Duval MD Work Phone: Start: 59-81-2954Ynyvzpntc mammography bi 2-view breast inc cadJeyson Duval MD Work Phone: Start: 70-56-2475Plrxz foot complete minimum 3 views Jeyson Duval MD Work Phone: [phone]: 05-21-2620Pijtj of ironJeyson Duval Work Phone: [phone]: 21-11-5804Uddxt of thyroid stimulating hormone tshJeyson Duval Work Phone: [phone]: 34-07-8508Mldoa count complete auto&auto difrntl wbcJeyson Duval Work Phone: [phone]: 85-64-6778Njmhinerfywxl metabolic panelJeyson Duval Work Phone: [phone]: 91-29-2187Zjpbydwvtt glycosylated r0iFkmigihJeyson Duval Work Phone: [phone]: 59-12-7689Zawcy panelJeyson Duval Work Phone: [phone]: 74-38-6260Bedwlwr horm uptk/thyroid hormone binding ratioJeyson Duval Work Phone: [phone]: 99-36-6196Agavbtnweu exam chest 2 viewsJeyson Duval Work Phone: [phone]: 60-15-1397Wdz brain brain stem w/o contrast materialJeyson Duval Work Phone: Start: 44-28-9671Zl soft tissue neck w/contrast materialVINCENT CHEMA Plan of Treatment DateCare ActivityDetailAuthorStart: 92-83-4126EDoZ/Tdap/Td vaccine (7 - Td or Tdap)DTaP/Tdap/Td vaccine (7 - Td or Tdap)[facility]Start: 53-02-3658Dnfwbqv vaccinationTetanus: Every 10yrsOhioHealthStart: 05-29-2025 End: 17-93-5159Uxnlale encounter xwgnckkog63/18/2026 8:00 AM EDT Office Visit [facility] [address] [place] [address] Ayush Valladares PA-C [address] [facility] [address] [place] [address] Caitlin Gutierrez MD [address] [facility] [address] [place] [address] [facility] ClinicStart: 03-27-2025 End: 46-00-6375Czifmer encounter procedureInter-[facility] MammographyStart: 03-21-2025 End: 20-59-0789QZ Breast - bilateral ScreeningMammography Screening Kenny Bilateral Imaging Routine Screening mammogram, encounter for Expected: , Expires: 11/18/2025[facility] Work Phone: Comment on above:Expected: 03/21/2025, Expires: 11/18/2025Start: 08-41-9020Vaiwmcpcu vaccinationInfluenza Vaccine (#1)[facility] Start: 41-61-5715Dzbiggv and physical examination, annual for health maintenance Wellness VisitOhioHealthStart: 09-17-2024 End: 26-13-2695Htklxim encounter urfngypuc59/07/2025 8:45 AM EDT Office Visit [facility] [address] [place] [address] Ayush Valladares PA-C [address] [address] [facility] Breast and Cancer SurgeonsStart: 09-11-2024 End: 77-28-9357VD Breast - bilateral WO and W contrast IVMR Breast Bilateral With And Without Contrast Imaging Routine At high risk for breast cancer Breast cancer screening other than mammogram Heterogeneously dense tissue of both breasts on mammography Expected: 09/11/2024, Expires: 01/18/2025[facility] Comment on above:Expected: 09/11/2024, Expires: 01/18/2025Start: 03-14-2024 End: 96-54-6369TD Breast - bilateral ScreeningMammography Screening Kenny Bilateral Imaging Routine Screening mammogram, encounter for Expected: , Expires: 03/20/2025[facility] Work Phone: Comment on above:Expected: 03/14/2024, Expires: 03/20/2025Start: 59-06-8606TVDXI-19 Vaccine ()COVID-19 Vaccine ()[facility]HealthStart: 15-81-8125Jxodkrcsg vaccinationInfluenza Vaccine (#1)[facility]HealthStart: 38-44-5471Qwhpqodjr vaccinationFlu vaccine (#1)[facility]ITALStart: 95-51-5472Oowizypfg vaccinationFlu vaccine (#1)[facility] EastEnvoy Phone: start: 10-27-2020 End: 58-01-0395Fgysevb encounter rqlrqzlge43/16/2021 Appointment [facility] MammographyStart: 42-48-1473Uumkgyrab vaccinationSEQUENTIAL INFLUENZA VACCINE (#1)[employer] Work Phone: Start: 01-48-7220Iwpfwpebt for malignant neoplasm of cervixBON ST. VINCENT HOSPITALStart: 36-38-2914XBdL/Tdap/Td vaccine (6 - Tdap) DTaP/Tdap/Td vaccine (6 - Tdap)[facility] EastEnv[facility] Phone: start: 03-13-6664Pgmaqcdfy for malignant neoplasm of cervixBON ST. [facility]INCENT HOS[facility]ITALStart: 45-27-6358Tfgxrzogs C screeningHepatitis C ScreeningOhioHealthStart: 99-36-4929UUS screeningHIV ScreeningOhioHealthStart: 42-35-7196DXUHK-19 Vaccine (1)COVID-19 Vaccine (1)[employer] Phone: start: 10-45-5782Byazjczroz ScreenDepression ScreenBON Glenbeigh Hospitalart: 81-85-5170Rnhqxppfgm screening using PHQ-9 (Patient Health Questionnaire 9) scoreDepression Screening/Follow-Up (PHQ-2/9)[facility] Start: 18-05-1709RCjR/Tdap/Td vaccine (6 - Tdap)DTaP/Tdap/Td vaccine (6 - Tdap) [place], KYStart: 66-95-7063Ymjlcjd and physical examination, annual for health [facility] VisitNhioGreen Cross HospitalStart: 66-55-7310Zwzuoqczw vaccine (1 of 2 - 2-dose childhood series)Varicella vaccine (1 of 2 - 2-dose childhood series)[facility]: 09-97-7727WQEQI-19 Vaccine (#1)COVID-19 Vaccine (#1)[facility]: 86-08-0501Puzddjjpr B vaccine (1 of 3 - 3-dose series)Hepatitis B vaccine (1 of 3 - 3-dose series)[facility]art: 61-31-9704Cydzvgwdg for malignant neoplasm of cervixPAP SMEAR [facility] Work Phone: Start: 76-93-1478Qpnwata vaccinationTETANUS EVERY 10 YRSelect Medical [facility] Work Phone: allergy skin tests allergens, eachAllergy skin tests allergens, each Routine Chronic rhinitis, unspecified type Ordered: 03/21/2017 [facility] Work Phone: Immunizations Immunization DateImmunizationNotesCare ZtjhgixbWyhowtge49-32-8284rdtorwglr virus vaccine, unspecified formulationAyush Valladares PA-C Work Phone: [phone]fcxuj95-57-2790dcfclwmck virus vaccine, unspecified formulationJeyson Bradley [facility] Payers DatePayer CategoryPayerPolicy [id number] [facility] Shield (Indemnity or Managed Care) - Out of StateBCBS OUT OF STATE [facility] [id number] [facility] [place] PPO [id number] 2019- [address] [place], [place] [id number] 1.2.840.923002.1.13.239.2.7.3.963603.73419-38-3924Zqvpfsq45-12-0915Qodchsm [id number] 2.0.1.545832.[id number] 2.0.1.139226.3.57[id number] 2.0.1.958156.3.57[id number] 2.0.1.370025.3.57[id number] 2.0.1.662594.3.57[id number] 2.0.1.984890.3.57[id number] 2.0.1.735824.3.57[id number] 2.840.1.792349.3.57[id number] 2.16.840.1.218324.3.57[id number] 2.16.840.1.218483.3.57[id number] 2.16840.1.794535.3.579.[id number] 2.16840.1.139211.3.57[id number] 2.16840.1.231007.3.57[id number] 2.16840.1.511969.3.57[id number] 2.0.1.825776.3.57[id number] 2.16840.1.381027.3.57[id number] 2.16.840.1.960322.3.57[id number] 2.840.1.912056.3.57[id number] 2.840.1.303987.3.57[id number] 2.16840.1.927251.3.57[id number] 2.840.1.297817.3.579.2.16263-99-0321Telw-[id number] Social History DateTypeDetailFacilityStart: 03-21-2017 End: 53-25-4653Sneufhy smoking status WYISNefamily health west hospital smokerOhioHealth Work Phone: Start: 81-23-3541Yif Assigned At BirthNot on file [facility] Work Phone: Start: 04-29-2017 End: 71-91-5416Agjsoxp use and exposureNever usedGil[place], KYStart: 04-29-2017 End: 00-15-0338Sdryeuq intakeCurrent drinker of alcohol (finding)[place], KYStart: 17-81-8216Awptjrn CommentoccGil[place], KYExposure to SARS-CoV-2 (event)Not sureGil[place], KYStart: 03-01-2023 End: 04-85-6612Klnnyit of Social functionBON ST. VINCENT HOSPITALStart: 03-01-2023 End: 35-25-6600Fnfkznc use panelRETREAT DOCTORS' HOSPITALHistory of tobacco use Passive smokerSelect Medical [facility] Clinic [facility] ShawStart: 01-19-2024 End: 93-58-8343Tiuyfhsse beverage intakeCurrent non-drinker of alcohol (finding) [facility] ShawStart: 23-33-8393Jqzmzswsf27GgxvZklhzyQjaxc: 55-01-2508Slqdvf identity Identifies as female gender (finding)[facility] ShawStart: 40-32-2571Tnopai orientationHeterosexual (finding)[facility] History of Present illness Narrative 09-17-2024 Note Date & OzdvJsurUryxvjjr33-04-7398 History of Present illness Narrative* Ayush Valladares PA-C - 09/17/2024 8:45 AM EDT TODAY'S DATE: 09/17/2024 PATIENT: Alexia Tay : 1985, 39 y.o. Chief Complaint/Reason for Visit: Chief Complaint Patient presents with Follow-up 7m f/u post 09-11-24 MRI (Hx: brst mass; brst pain); pt reports no breast symptoms today ASSESSMENT/PLAN: 1. At high risk for breast cancer Amb[facility] 2. Family history of breast cancer Ambulatory referral to [facility] 3. Screening mammogram, encounter for Mammography Screening Kenny Bilateral Orders Placed This Encounter Procedures Mammography Screening Kenny Bilateral Ambulatory referral to [facility] Alexia Tay is a 39 y.o. female who presents for high risk surveillance. Her lifetime risk of developing breast cancer was calculated at 20.4% . On clinical exam, I do not appreciate any concerningmasses or lymphadenopathy. PLAN: I reviewed my physical exam and her most recent imaging findings with Patricia in clinic today. Fortunately, there are no concerning findings. We reviewed primary and secondary prevention measures for breast cancer. Primary preventions strategies include maintaining a healthy weight, eating a balanced diet, increasing physical activity, anddecreasing alcohol intake. I therefore recommended high risk screening for breast cancer including twice annual clinical breast exams, as well as annual mammography and annual breast MRI alternated on 6 month intervals. We reviewed breast MRI including sensitivity and specificity of the exam. She will be due for annual screening mammogram March 2025 and I placed that order. I will call her if there is anything we need todiscuss regarding the findings. We discussed transition of services to our high risk cancer clinic and she is agreeable to this. Referral placed for follow-up in 6 months after her mammogram. She is aware I am available for any additional questions, concerns, or surgical needs she may have moving forward. I reviewed components of self breast exam and encouraged her to have awareness and report any changes noticed to our office. All of the patient's questions were answered in the office today. She leaves in stable condition and in agreement with the above plan. She is aware that if she has any questions in the interim that Wang available. Return follow up with high risk cancer clinic. HPI: Alexia Tay is a 39 y.o. female presents today for high risk surveillance. She was found to be athigh risk for developing breast cancer at 20.4% based on the Tyrer-Cuzick model. Her maternal grandmother had breast cancer in her 30s. Her most recent breast imaging includes a bilateral breast MRI 09/11/2024 which is negative. Today, she has questions regarding her abnormal imaging as it was never really explained to her. She denies lumps/masses, skin changes, nipple changes or discharge, new or worsening tenderness, and axillary lumps or masses. Breast Health History: No history of breast interventions Breast Cancer Risk Factors: Her risk factors for breast cancer include: gender, late first . Family history of breast cancer in a maternal grandmother in her 30s. Lifetime risk of developing breast cancer: [place]: 20.4% Gynecology History: Menarche: 14 , Para: G 3 P 1 Age at of a first : 37 Menopausal status: Pre-menopausal Age of menopause: NA OCP use: in the past x13 years On HRT/if yes, how long: No PMH: Past Medical History: Diagnosis Date Allergic rhinitis Arthritis Asthma Avascular necrosis of bone of hip, left (HCC) Breast mass Breast pain Degenerative disc disease at L5-S1 level GERD (gastroesophageal reflux disease) Heart murmur Herniated lumbar intervertebral disc Hypothyroidism Pneumonia PSH: Past Surgical History: Procedure Laterality Date ADENOIDECTOMY ARTHROSCOPY HIP Left SECTION, CLASSIC DILATION AND CURETTAGE OF UTERUS FOOT SURGERY Right tarsal tunnel release; plantar facitisotomy gum grafts HIP SURGERY Left 2007 TONSILLECTOMY FMH: Family History Problem Relation Age of Onset Breast cancer Maternal Grandmother 38 Colon cancer Maternal Uncle SOCIAL Hx: Social History Socioeconomic History Marital status: Single Number of children: 1 Years of education: 16 Highest education level: Bachelor's degree (e.g., BA, AB, BS) Tobacco Use Smoking status: Never Passive exposure: Yes Smokeless tobacco: Never Vaping Use Vaping status: Never Used Substance and Sexual Activity Alcohol use: No Drug use: No MEDS: Current Outpatient Medications Medication Sig Dispense Refill ascorbic acid, vitamin C, (VITAMIN C) 500 MG tablet Take by mouth . (Patient not taking: Reported on 01/19/2024 .) fluticasone (FLONASE) 50 mcg/actuation nasal spray Instill 1 spray into each nostril daily. (Patient not taking: Reported on 01/19/2024 .) levothyroxine (SYNTHROID, LEVOTHROID) 50 MCG tablet every night at bedtime . multivitamin (THERAGRAN) per tablet 1 (one) tablet . naproxen sodium (ALEVE) 220 mg cap Take 1 tablet by mouth every 12 (twelve) hours as needed. norethindrone-ethinyl estradiol (MICROGESTIN 04/02, 21,) 1-20 mg-mcg per tablet Take 1 tablet by mouth daily. (Patient not taking: Reported on 01/19/2024 .) omeprazole (PRILOSEC) 40 MG capsule Take 40 mg by mouth daily. (Patient not taking: Reported on 01/19/2024 .) ondansetron (ZOFRAN) 4 MG tablet Take 1 (one) tablet (4 mg total) by mouth every 8 (eight) hours asneeded for nausea . therapeutic multivitamin (THERAGRAN) tablet Take 1 tablet by mouth daily. (Patient not taking: Reported on 01/19/2024 .) No current facility-administered medications for this visit. ALLERGIES: Allergies: Other, Cephalosporins, and Penicillins ROS: Review of Systems Constitutional: Negative for activity change, appetite change, chills, diaphoresis, fatigue, fever and unexpected weight change. HENT: Positive for postnasal drip. Negative for congestion, dental problem, hearing loss, sore throat, tinnitus, trouble swallowing and voice change. Eyes: Negative for photophobia, pain and visual disturbance. Respiratory: Negative for apnea, cough, chest tightness, shortness of breath, wheezing and stridor. Cardiovascular: Negative for chest pain, palpitations and leg swelling. Gastrointestinal: Negative for abdominal distention, abdominal pain, blood in stool, constipation, diarrhea, nausea and vomiting. Endocrine: Positive for cold intolerance. Negative for heat intolerance. Genitourinary: Negative for decreased urine volume, difficulty urinating, dysuria, enuresis, flank pain, frequency, hematuria and urgency. Musculoskeletal: Positive for arthralgias and back pain. Negative for gait problem, joint swelling,myalgias, neck pain and neck stiffness. Skin: Negative for color change, pallor, rash and wound. Allergic/Immunologic: Positive for environmental allergies. Neurological: Positive for headaches. Negative for dizziness, syncope, speech difficulty, weakness,light-headedness and numbness. Hematological: Negative for adenopathy. Does not bruise/bleed easily. Psychiatric/Behavioral: Negative for confusion, hallucinations, sleep disturbance and suicidal ideas. The patient is not nervous/anxious. All other systems reviewed and are negative. Breast: breast mass-no, nipple discharge-no, breast pain-no, skin changes-no, nipple inversion-no Physical Examination: Per [facility] Policy, the patient was offered a dispensing operator for the physical exam. Patient's response to dispensing operator offer: Yes, If provider requested Vital Signs: Ht 5' 2 (157.5 cm) Wt 59 kg (130 lb) LMP 09/17/2024 (Exact Date) BMI 23.78 kg/m Physical Exam Vitals reviewed. Constitutional: General: She is not in acute distress. Appearance: She is not diaphoretic. Pulmonary: Effort: Pulmonary effort is normal. Chest: Breasts: Right: Normal. No inverted nipple, mass, nipple discharge, skin change or tenderness. Left: Normal. No inverted nipple, mass, nipple discharge, skin change or tenderness. Comments: Breasts are examined in seated and supine position. Breasts are normal to inspection, symmetrical, without nipple retraction, erythema, skin dimpling, or discharge. Both breasts palpate normally without any concerning masses or tenderness. No axillary adenopathy. Musculoskeletal: General: No tenderness. Lymphadenopathy: Cervical: No cervical adenopathy. Upper Body: Right upper body: No supraclavicular or axillary adenopathy. Left upper body: No supraclavicular or axillary adenopathy. Skin: General: Skin is warm. Coloration: Skin is not jaundiced or pale. Findings: No erythema or rash. Neurological: Mental Status: She is alert and oriented to person, place, and time. Mental status is at baseline. Psychiatric: Behavior: Behavior normal. IMAGING: I have independently reviewed the most recent imaging, which includes the following: Bilateral breast MRI 09/11/2024 -overall benign with no signs of malignancy. BI- RADS 1 I personally spent 20 minutes on this encounter today which includes [id number] time with the patient, time reviewing the chart, and time spent documenting the encounter. Sincerely, Ayush Valladares PA-C [facility] [address] [place] [address], [address] [place] [address] CC: Dr. Jeyson Guevara documented in this encounterSelect [facility] Progress note 09-17-2024 Note Date & [id number] NoteTODAY'S DATE: 09/17/2024 PATIENT: Alexia Tay : 1985, 39 y.o. Chief Complaint/Reason for Visit: Chief Complaint Patient presents with Follow-up 7m f/u post 09-11-24 MRI (Hx: brst mass; brst pain); pt reports no breast symptoms today ASSESSMENT/PLAN: 1. At high risk for breast cancer Ambulatory referral to High Risk Cancer Clinic 2. Family history of breast cancer Ambulatory referral to High Risk Cancer Clinic 3. Screening mammogram, encounter for Mammography Screening Kenny Bilateral Orders Placed This Encounter Procedures Mammography Screening Kenny Bilateral Ambulatory referral to High Risk Cancer Clinic Alexia Tay is a 39 y.o. female who presents for high risk surveillance. Her lifetime risk of developing breast cancer was calculated at 20.4% . On clinical exam, I do not appreciate any concerning masses or lymphadenopathy. PLAN: I reviewed my physical exam and her most recent imaging findings with Patricia in clinic today. Fortunately, there are no concerning findings. We reviewed primary and secondary prevention measures for breast cancer. Primary preventions strategies include maintaining a healthy weight, eating a balanced diet, increasing physical activity, and decreasing alcohol intake. I therefore recommended high risk screening for breast cancer including twice annual clinical breast exams, as well as annual mammography and annual breast MRI alternated on 6 month intervals. We reviewed breast MRI including sensitivity and specificity of the exam. She will be due for annual screening mammogram March 2025 and I placed that order. I will call her if there is anything we need to discuss regarding the findings. We discussed transition of services to our high risk cancer clinic and she is agreeable to this. Referral placed for follow-up in 6 months after her mammogram. She is aware I am available for any additional questions, concerns, or surgical needs she may have moving forward. I reviewed components of self breast exam and encouraged her to have awareness and report any changes noticed to our office. All of the patient's questions were answered in the office today. She leaves in stable condition and in agreement with the above plan. She is aware that if she has any questions in the interim that I am available. Return follow up with high risk cancer clinic. HPI: Alexia Tay is a 39 y.o. female presents today for high risk surveillance. She was found to be at high risk for developing breast cancer at 20.4% based on the Tyrer-Cuzick model. Her maternal grandmother had breast cancer in her 30s. Her most recent breast imaging includes a bilateral breast MRI 09/11/2024 which is negative. Today, she has questions regarding her abnormal imaging as it was never really explained to her. She denies lumps/masses, skin changes, nipple changes or discharge, new or worsening tenderness, and axillary lumps or masses. Breast Health History: No history of breast interventions Breast Cancer Risk Factors: Her risk factors for breast cancer include: gender, late first . Family history of breast cancer in a maternal grandmother in her 30s. Lifetime risk of developing breast cancer: [place]: 20.4% Gynecology History: Menarche: 14 , Para: G 3 P 1 Age at of a first : 37 Menopausal status: Pre-menopausal Age of menopause: NA OCP use: in the past x13 years On HRT/if yes, how long: No PMH: Past Medical History: Diagnosis Date Allergic rhinitis Arthritis Asthma Avascular necrosis of bone of hip, left (HCC) Breast mass Breast pain Degenerative disc disease at L5-S1 level GERD (gastroesophageal reflux disease) Heart murmur Herniated lumbar intervertebral disc Hypothyroidism Pneumonia PSH: Past Surgical History: Procedure Laterality Date ADENOIDECTOMY ARTHROSCOPY HIP Left SECTION, CLASSIC DILATION AND CURETTAGE OF UTERUS FOOT SURGERY Right tarsal tunnel release; plantar facitisotomy gum grafts HIP SURGERY Left 2007 TONSILLECTOMY FMH: Family History Problem Relation Age of Onset Breast cancer Maternal Grandmother 38 Colon cancer Maternal Uncle SOCIAL Hx: Social History Socioeconomic History Marital status: Single Number of children: 1 Years of education: 16 Highest education level: Bachelor's degree (e.g., BA, AB, BS) Tobacco Use Smoking status: Never Passive exposure: Yes Smokeless tobacco: Never Vaping Use Vaping status: Never Used Substance and Sexual Activity Alcohol use: No Drug use: No MEDS: Current Outpatient Medications Medication Sig Dispense Refill ascorbic acid, vitamin C, (VITAMIN C) 500 MG tablet Take by mouth . (Patient not taking: Reported on 01/19/2024 .) fluticasone (FLONASE) 50 mcg/actuation nasal spray Instill 1 spray into each nostril daily. (Patient not taking: Reported on 01/19/2024 .) levothyroxine (SYNTHROID, LEVOTHROID (more content not included)...[facility] Progress note 01-19-2024 Note Date & [id number] NoteTODAY'S DATE: 01/19/2024 PATIENT: Alexia Tay : 1985, 38 y.o. Chief Complaint/Reason for Visit: Chief Complaint Patient presents with - Initial Visit (Intake) R breast mass - BIRADS 2 - assymetry; est case with questions needed answered; imaging @ [facility], [place], 05-06-23, 07-05-23, 11-25-23; pt states B breast pain and increase since giving 07-18-22 ASSESSMENT/PLAN: 1. At high risk for breast cancer MR Breast Bilateral With And Without Contrast 2. Family history of breast cancer 3. Breast cancer screening other than mammogram MR Breast Bilateral With And Without Contrast 4. Screening mammogram, encounter for Mammography Screening Kenny Bilateral 5. Heterogeneously dense tissue of both breasts on mammography MR Breast Bilateral With And Without Contrast Orders Placed This Encounter Procedures - Mammography Screening Kenny Bilateral - MR Breast Bilateral With And Without Contrast Alexia Tay is a 38 y.o. female who presents for evaluation of abnormal breast imaging and family history of breast cancer. Her lifetime risk of developing breast cancer was calculated at 20.4% today. On clinical exam, I do not appreciate any concerning masses or lymphadenopathy. PLAN: I reviewed my physical exam and her most recent imaging findings with Patricia in clinic today. Fortunately, there are no concerning findings. We reviewed primary and secondary prevention measures for breast cancer. Primary preventions strategies include maintaining a healthy weight, eating a balanced diet, increasing physical activity, and decreasing alcohol intake. I therefore recommended high risk screening for breast cancer including twice annual clinical breast exams, as well as annual mammography and annual breast MRI alternated on 6 month intervals. We reviewed breast MRI including sensitivity and specificity of the exam. Plan for annual screening mammogram March 2024 and bilateral breast MRI September 2024. I have placed both of these orders. I will see her back after her MRI in September or sooner if she has any needs. I reviewed components of self breast exam and encouraged her to have awareness and report any changes noticed to our office. All of the patient's questions were answered in the office today. She leaves in stable condition and in agreement with the above plan. She is aware that if she has any questions in the interim that I am available. Return in about 7 months (around 08/18/2024). HPI: Alexia Tay is a 38 y.o. female presents today for examination and management of abnormal breast imaging and family history of breast cancer. She had a bilateral screening mammogram 03/01/2023 which showed a right breast asymmetry. Right breast diagnostic mammogram and ultrasound completed 05/06/2023 confirmed this asymmetry which did not have an ultrasound correlate. 6-month follow-up right breast diagnostic mammogram was completed 11/25/2023 which confirmed this to just be denser breast tissue. She also had a bilateral breast MRI 07/05/2023 which was benign. Today, she has questions regarding her abnormal imaging as it was never really explained to her. She denies lumps/masses, skin changes, nipple changes or discharge, new or worsening tenderness, and axillary lumps or masses. Breast Health History: No history of breast interventions Breast Cancer Risk Factors: Her risk factors for breast cancer include: gender, late first . Family history of breast cancer in a maternal grandmother in her 30s. Lifetime risk of developing breast cancer: Tyrer-Cuzick: 20.4% Gynecology History: Menarche: 14 , Para: G 3 P 1 Age at of a first : 37 Menopausal status: Pre-menopausal Age of menopause: NA OCP use: in the past x13 years On HRT/if yes, how long: No PMH: Past Medical History: Diagnosis Date - Allergic rhinitis - Arthritis - Asthma - Avascular necrosis of bone of hip, left (HCC) - Breast mass - Breast pain - Degenerative disc disease at L5-S1 level - GERD (gastroesophageal reflux disease) - Heart murmur - Herniated lumbar intervertebral disc - Hypothyroidism - Pneumonia PSH: Past Surgical History: Procedure Laterality Date - ADENOIDECTOMY - ARTHROSCOPY HIP Left - SECTION, CLASSIC - DILATION AND CURETTAGE OF UTERUS - FOOT SURGERY Right tarsal tunnel release; plantar facitisotomy - gum grafts - HIP SURGERY Left 2007 - TONSILLECTOMY FMH: Family History Problem Relation Age of Onset - Breast cancer Maternal Grandmother - Colon cancer Maternal Uncle SOCIAL Hx: Social History Socioeconomic History - Marital status: Single - Number of children: 1 - Years of education: 16 - Highest education level: Bachelor's degree (e.g., BA, AB, BS) Tobacco Use - Smoking status: Never Passive exposure: Yes - Smokeless tobacco: Never Vaping Use - Vaping status: Never Used Substance and Sexual Activity - Alc (more content not included)...[facility] History of Present illness Narrative 01-19-2024 Note Date & [id number] History of Present illness Narrative* Ayush Valladares PA-C - 01/19/2024 8:08 AM EST TODAY'S DATE: 01/19/2024 PATIENT: Alexia Tay : 1985, 38 y.o. Chief Complaint/Reason for Visit: Chief Complaint Patient presents with Initial Visit (Intake) R breast mass - BIRADS 2 - assymetry; est case with questions needed answered; imaging @ [facility], [place], 05-06-23, 07-05-23, 11-25-23; pt states B breast pain and increase since giving 07-18-22 ASSESSMENT/PLAN: 1. At high risk for breast cancer MR Breast Bilateral With And Without Contrast 2. Family history of breast cancer 3. Breast cancer screening other than mammogram MR Breast Bilateral With And Without Contrast 4. Screening mammogram, encounter for Mammography Screening Kenny Bilateral 5. Heterogeneously dense tissue of both breasts on mammography MR Breast Bilateral With And WithoutContrast Orders Placed This Encounter Procedures Mammography Screening Kenny Bilateral MR Breast Bilateral With And Without Contrast Alexia Tay is a 38 y.o. female who presents for evaluation of abnormal breast imaging and familyhistory of breast cancer. Her lifetime risk of developing breast cancer was calculated at 20.4% today. On clinical exam, I do not appreciate any concerning masses or lymphadenopathy. PLAN: I reviewed my physical exam and her most recent imaging findings with Patricia in clinic today. Fortunately, there are no concerning findings. We reviewed primary and secondary prevention measures for breast cancer. Primary preventions strategies include maintaining a healthy weight, eating a balanced diet, increasing physical activity, anddecreasing alcohol intake. I therefore recommended high risk screening for breast cancer including twice annual clinical breast exams, as well as annual mammography and annual breast MRI alternated on 6 month intervals. We reviewed breast MRI including sensitivity and specificity of the exam. Plan for annual screening mammogram March 2024 and bilateral breast MRI September 2024. I have placed both of these orders. I will see her back after her MRI in September or sooner if she has any needs. I reviewed components of self breast exam and encouraged her to have awareness and report any changes noticed to our office. All of the patient's questions were answered in the office today. She leaves in stable condition and in agreement with the above plan. She is aware that if she has any questions in the interim that Wang available. Return in about 7 months (around 08/18/2024). HPI: Alexia Tay is a 38 y.o. female presents today for examination and management of abnormal breast imaging and family history of breast cancer. She had a bilateral screening mammogram 03/01/2023 which showed a right breast asymmetry. Right breast diagnostic mammogram and ultrasound completed 05/06/2023 confirmed this asymmetry which did not have an ultrasound correlate. 6-month follow-up right breast diagnostic mammogram was completed 11/25/2023 which confirmed this to just be denser breast tissue. She also had a bilateral breast MRI 07/05/2023 which was benign. Today, she has questions regarding her abnormal imaging as it was never really explained to her. She denies lumps/masses, skin changes, nipple changes or discharge, new or worsening tenderness, and axillary lumps or masses. Breast Health History: No history of breast interventions Breast Cancer Risk Factors: Her risk factors for breast cancer include: gender, late first . Family history of breast cancer in a maternal grandmother in her 30s. Lifetime risk of developing breast cancer: [place]: 20.4% Gynecology History: Menarche: 14 , Para: G 3 P 1 Age at of a first : 37 Menopausal status: Pre-menopausal Age of menopause: NA OCP use: in the past x13 years On HRT/if yes, how long: No PMH: Past Medical History: Diagnosis Date Allergic rhinitis Arthritis Asthma Avascular necrosis of bone of hip, left (HCC) Breast mass Breast pain Degenerative disc disease at L5-S1 level GERD (gastroesophageal reflux disease) Heart murmur Herniated lumbar intervertebral disc Hypothyroidism Pneumonia PSH: Past Surgical History: Procedure Laterality Date ADENOIDECTOMY ARTHROSCOPY HIP Left SECTION, CLASSIC DILATION AND CURETTAGE OF UTERUS FOOT SURGERY Right tarsal tunnel release; plantar facitisotomy gum grafts HIP SURGERY Left 2007 TONSILLECTOMY FMH: Family History Problem Relation Age of Onset Breast cancer Maternal Grandmother Colon cancer Maternal Uncle SOCIAL Hx: Social History Socioeconomic History Marital status: Single Number of children: 1 Years of education: 16 Highest education level: Bachelor's degree (e.g., BA, AB, BS) Tobacco Use Smoking status: Never Passive exposure: Yes Smokeless tobacco: Never Vaping Use Vaping status: Never Used Substance and Sexual Activity Alcohol use: No Drug use: No MEDS: Current Outpatient Medications Medication Sig Dispense Refill levothyroxine (SYNTHROID, LEVOTHROID) 50 MCG tablet every night at bedtime . multivitamin (THERAGRAN) per tablet 1 (one) tablet . naproxen sodium (ALEVE) 220 mg cap Take 1 tablet by mouth every 12 (twelve) hours as needed. ondansetron (ZOFRAN) 4 MG tablet Take 1 (one) tablet (4 mg total) by mouth every 8 (eight) hours asneeded for nausea . ascorbic acid, vitamin C, (VITAMIN C) 500 MG tablet Take by mouth . (Patient not taking: Reported on 01/19/2024 .) fluticasone (FLONASE) 50 mcg/actuation nasal spray Instill 1 spray into each nostril daily. (Patient not taking: Reported on 01/19/2024 .) norethindrone-ethinyl estradiol (MICROGESTIN 04/02, ,) 1-20 mg-mcg per tablet Take 1 tablet by mouth daily. (Patient not taking: Reported on 01/19/2024 .) omeprazole (PRILOSEC) 40 MG capsule Take 40 mg by mouth daily. (Patient not taking: Reported on 01/19/2024 .) therapeutic multivitamin (THERAGRAN) tablet Take 1 tablet by mouth daily. (Patient not taking: Reported on 01/19/2024 .) No current facility-administered medications for this visit. ALLERGIES: Allergies: Other, Cephalosporins, and Penicillins ROS: Review of Systems Constitutional: Negative for activity change, appetite change, chills, diaphoresis, fatigue, fever and unexpected weight change. HENT: Negative for congestion, dental problem, hearing loss, sore throat, tinnitus, trouble swallowing and voice change. Eyes: Negative for photophobia, pain and visual disturbance. Respiratory: Negative for apnea, cough, chest tightness, shortness of breath, wheezing and stridor. Cardiovascular: Negative for chest pain, palpitations and leg swelling. Gastrointestinal: Negative for abdominal distention, abdominal pain, blood in stool, constipation, diarrhea, nausea and vomiting. Endocrine: Negative for cold intolerance and heat intolerance. Genitourinary: Negative for decreased urine volume, difficulty urinating, dysuria, enuresis, flank pain, frequency, hematuria and urgency. Musculoskeletal: Negative for arthralgias, back pain, gait problem, joint swelling, myalgias, neck pain and neck stiffness. Skin: Negative for color change, pallor, rash and wound. Allergic/Immunologic: Positive for environmental allergies. Neurological: Positive for headaches. Negative for dizziness, syncope, speech difficulty, weakness,light-headedness and numbness. Hematological: Negative for adenopathy. Does not bruise/bleed easily. Psychiatric/Behavioral: Negative for confusion, hallucinations, sleep disturbance and suicidal ideas. The patient is not nervous/anxious. All other systems reviewed and are negative. Breast: breast mass-no, nipple discharge-no, breast pain-yes, skin changes-no, nipple inversion-no Physical Examination: Per [facility] Policy, the patient was offered a dispensing operator for the physical exam. Patient's response to dispensing operator offer: Yes, If provider requested Vital Signs: Ht 5' 2.5 Wt 59 kg (130 lb) LMP 12/27/2023 (Approximate) No BMI 23.40 kg/m Physical Exam Vitals reviewed. Constitutional: General: She is not in acute distress. Appearance: She is not diaphoretic. Pulmonary: Effort: Pulmonary effort is normal. Chest: Breasts: Right: Normal. No inverted nipple, mass, nipple discharge, skin change or tenderness. Left: Normal. No inverted nipple, mass, nipple discharge, skin change or tenderness. Comments: Breasts are examined in seated and supine position. Breasts are normal to inspection, symmetrical, without nipple retraction, erythema, skin dimpling, or discharge. Both breasts palpate normally without any concerning masses or tenderness. No axillary adenopathy. Musculoskeletal: General: No tenderness. Lymphadenopathy: Cervical: No cervical adenopathy. Upper Body: Right upper body: No supraclavicular or axillary adenopathy. Left upper body: No supraclavicular or axillary adenopathy. Skin: General: Skin is warm. Coloration: Skin is not jaundiced or pale. Findings: No erythema or rash. Neurological: Mental Status: She is alert and oriented to person, place, and time. Mental status is at baseline. Psychiatric: Behavior: Behavior normal. IMAGING: I have independently reviewed the most recent imaging, which includes the following: Bilateral screening mammogram 10/27/2020 -heterogeneously dense breast tissue, no signs of malignancy BI-RADS 1 Bilateral screening mammogram 03/01/2023 -heterogeneously dense breast tissue, asymmetry in lateralright breast; BI-RADS 0 Right diagnostic mammogram 05/06/2023 -asymmetry persist with spot compression however appears to belikely summation of tissue on tomosynthesis images, BI-RADS 3 Targeted right breast ultrasound 05/06/2023 -no solid or cystic masses to account for the asymmetry on mammogram Bilateral breast MRI 07/05/2023 -no suspicious correlate for the right breast asymmetry; benign withno signs of malignancy, BI-RADS 2 Right breast diagnostic mammogram 11/25/2023 -previously queried asymmetry less conspicuous on today's exam consistent with benign etiology, BI-RADS 2 I personally spent 45 minutes on this encounter today which includes idiy-hs-juqa time with the patient, time reviewing the chart, and time spent documenting the encounter. Sincerely, Ayush Valladares PA-C [facility] [address], [address] [place] [address] CC: Dr. Jeyson Guevara [facility] Evaluation note Note Date & TypeNoteFacilityEvaluation note* Diagnosis Left foot pain Pain in limb documented in this encounter [employer]: Evaluation note Note Date & TypeNoteFacilityEvaluation note* Diagnosis Breast cancer screening by mammogram documented in this encounter [employer]: Evaluation note Note Date & TypeNoteFacilityEvaluation note* Diagnosis Other abnormal and inconclusive findings on diagnostic imaging of breast [facility] note Note Date & TypeNoteFacilityEvaluation note* Diagnosis At high risk for breast cancer- Primary Family history of breast cancer Family history of malignant neoplasm of breast Breast cancer screening other than mammogram Screening mammogram, encounter for Heterogeneously dense tissue of both breasts on mammography documented in this encounter [facility] Evaluation note Note Date & TypeNoteFacilityEvaluation note* Diagnosis At high risk for breast cancer- Primary Family history of breast cancer Family history of malignant neoplasm of breast Screening mammogram, encounter for documented in this encounter [facility] Instructions * Patient Instructions - Adilson Wood [...] Keep pets outside. If your doctor recommends yeae-zlh-[id number] medicines to relieve symptoms, take your medicines [...] Log into your personal health record on [email or web address] and enter M030 in the Education box to learn more about Rhinitis: Care Instructions. Current as of: October 10, 2015 Content Version: 11.2 7538-0165 [employer]. Care instructions adapted under license by your healthcare professional. If you have questions about a medical condition or this instruction, always ask your healthcare professional. [employer] disclaims any warranty or liability for your use of this information. in this encounter Assessments DiagnosisPostnasal drip - PrimaryThroat fullnessChronic rhinitis, unspecified typeDiagnosis Histoplasmosis Histoplasmosis, unspecified without mention of manifestation Diagnosis Intractable migraine without status migrainosus, unspecified migraine type Summary Purpose Family History No Family History Records FoundNo Family History Records FoundNo Family History Records FoundNo Family History Records FoundNo Family History Records FoundNo Family History Records FoundNo Family History Records FoundNo Family History Records FoundNo Family History Records FoundNo Family History Records Found Advance Directives TypeDate RecordedPatient RepresentativeExplanationACP-Advance DirectiveACP-Power of AttorneyTypeDate RecordedPatient RepresentativeExplanationACP-Advance DirectiveACP-Power of [employer] Reason for Referral StatusReasonSpecialtyDiagnoses / ProceduresReferred By ContactReferred To ContactClosedRadiology Diagnoses Intractable migraine without status migrainosus, unspecified migraine type Procedures MRI BRAIN WO CONTRAST Jeyson Duval MD [address] [place] [address] StatusReasonSpecialtyDiagnoses / ProceduresReferred By ContactReferred To ContactClosedRadiology Diagnoses Breast cancer screening by mammogram Procedures [facility] DIGITAL SCREEN BILATERAL Jeyson Duval MD [address] [place] [address] SpecialtyDiagnoses / ProceduresReferred By ContactReferred To ContactRadiology Diagnoses Other abnormal and inconclusive findings on diagnostic imaging of breast Procedures US BREAST LIMITED RIGHT Jeyson Duval MD [address] [place] [address] Referral IDStatusReasonStart DateExpiration DateVisits RequestedVisits [id number] Additional Source Comments INFORMATION SOURCE (unrecogn ized section and content) DATE CREATED AUTHOR 09/02/2017 [facility] DATE CREATED AUTHOR AUTHOR'S ORGANIZ ATION 09/02/2017 [facility] DATE CREATED AUTHOR AUTHOR'S ORGANIZ ATION 09/06/2017 [facility] DATE CREATED AUTHOR AUTHOR'S ORGANIZ ATION 08/30/2020 [facility] DATE CREATED AUTHOR AUTHOR'S ORGANIZ ATION 11/28/2023 [facility] DATE CREATED AUTHOR AUTHOR'S ORGANIZ ATION 03/26/2024 [facility] DATE CREATED AUTHOR AUTHOR'S ORGANIZ ATION 04/17/2024 [facility] DATE CREATED AUTHOR AUTHOR'S ORGANIZ ATION 09/12/2024 [facility] DATE CREATED AUTHOR AUTHOR'S ORGANIZ ATION 09/20/2024 [facility] DATE CREATED AUTHOR AUTHOR'S ORGANIZ ATION 10/02/2024 [facility] Reason for Visit (unrecogniz ed section and content) StatusReasonSpecialtyDiagnoses / ProceduresReferred By ContactReferred To ContactClosedRadiology Diagnoses Migraine, unspecified, not intractable, without status migrainosus Histoplasmosis, unspecified Procedures HC MRI BRAIN WO CTRST Jeyson Duval MD [address] [place] [address] [facility] [address] [place] [address] StatusReasonSpecialtyDiagnoses / ProceduresReferred By ContactReferred To ContactOpenRadiology Diagnoses Encounter for screening mammogram for malignant neoplasm of breast Procedures HC MAMMOGRAM DIGITAL SCREEN BILAT Jeyson Duval MD [address] [place] [address] [facility] [address] [place] [address] SpecialtyDiagnoses / ProceduresReferred By ContactReferred To ContactRadiology Diagnoses Other abnormal and inconclusive findings on diagnostic imaging of breast Procedures US BREAST LIMITED RIGHT Jeyson Duval MD [address] [place] [address] Referral IDStatusReasonStart DateExpiration DateVisits RequestedVisits [id number] Visit (Intake)R breast mass - BIRADS 2 - assymetry; est case with questions needed answered; imaging @ [facility], 05-06-23, 07-05-23, 11-25-23; pt states B breast pain and increase since giving [id number] f/u post 09-11-24 MRI (Hx: brst mass; brst pain); pt reports no breast symptoms today Care Teams (unrecognized sec tion and content) Team MemberRelationshipSpecialtyStart DateEnd Jeyson Duval MD [address] [place] [address] PCP - GeneralFamily Medicine07/22/16Team MemberRelationshipSpecialtyStart DateEnd Date Jeyson Duval MD [address] [place] [address] PCP - GeneralFamily Medicine03/15/17Team MemberRelationshipSpecialtyStart DateEnd Date Jeyson Duval MD [address] [place] [address] PCP - [facility]03/15/17 FOR RECORDS PERTAINING TO PATIENTS WHO ARE [...] BE BASED ON THE PRIMARY CLINICAL RECORDS. [facility] [employer] [facility]. provides no warranty or guarantee of the accuracy or completeness of information in this document.
[2025-01-11 09:42] LABS: Hematocrit 41.5 % (36.0-48.0); Hemoglobin 13.8 g/dL (12.0-16.0); Immature Granulocytes Abs Auto 0.01 10^3/uL (0.00-0.03); Immature Granulocytes Pct Auto 0.1 % (0.0-0.5); Lymphocytes Absolute Auto 1.8 10^3/uL (1.2-3.8); Mean Corpuscular HGB Conc 33.3 g/dL (29.9-35.2); Mean Corpuscular Hemoglobin 30.9 pg (26.7-34.0); Mean Corpuscular Volume 92.8 fL (81.0-99.0); Platelet Count 198 10^3/uL (150-450); Red Blood Count 4.47 10^6/uL (4.20-5.40); White Blood Count 6.7 10^3/uL (4.0-11.0)
[2025-01-11 10:34] LABS: Alanine Aminotransferase 17 U/L (14-59); Albumin Globulin Ratio 1.2; Albumin Level 3.9 g/dL (3.4-5.0); Alkaline Phosphatase 55 U/L (46-116); Anion Gap 12.7; Aspartate Amino Transferase 15 U/L (15-37); Blood Urea Nitrogen 16.0 mg/dL (7.0-18.0); Calcium 8.8 mg/dL (8.5-10.1); Carbon Dioxide 26.5 mmol/L (21.0-32.0); Chloride 104 mmol/L (98-107); Cholesterol 214 mg/dL (<=200); Estimated GFR (African America >60 (>=60 mL/min/1.73m^2); Estimated GFR (Non-African Ame >60 (>=60 mL/min/1.73m^2); Free T3 2.51 pg/mL (2.18-3.98); Globulin 3.2 g/dL; Glucose 79 mg/dL (74-106); HDL Cholesterol 81 mg/dL (40-60); Potassium 4.2 mmol/L (3.5-5.1); Sodium 139 mmol/L (136-145); Thyroid Stimulating Hormone 1.453 uIU/mL (0.358-3.740); Total Protein 7.1 g/dL (6.4-8.2); Triglycerides 49 mg/dL (<=150); VLDL CHOLESTEROL 9.8 mg/dL
[2025-01-11 10:38] LABS: Iron 110.0 ug/dL (50.0-170.0)
== END 2025-01-11 09:13 | disposition home or self-care (01) ==
LOC: LAB 09:14
PROVIDERS: PCP Family Medicine; Visit Provider Family Medicine
DX: Z00.00 Encounter for general adult medical examination without abnormal findings (principal)
CPT/HCPCS: 36415; 80053; 80061; 83036; 83540; 84436; 84443; 84481; 85025